=== PATIENT | female | born 1945 | race Caucasian/White ===

== ENCOUNTER 2018-05-07 11:45 | Day surgery (SDC) | payer OTHER ==
[2018-05-07] MEDS: CYCLOPENTOLATE 1% OPTH 2 ML ONE ×3 (11:15→11:25)
[2018-05-07] MEDS: PHENYLEPHRINE 10% OPTH 5ML ONE ×3 (11:15→11:25)
[2018-05-07] MEDS ORDERED: BUPIVACAINE 0.25% PF 10 ML VIAL ONE (12:11)
[2018-05-07] MEDS ORDERED: NA CHLORIDE 0.9% 500 ML ONE (12:11)
[2018-05-07] MEDS ORDERED: TETRACAINE HCL 0.5% 2ML OPTH ONE (12:11)
[2018-05-07] MEDS ORDERED: LIDOCAINE 2% MPF 5 ML VIAL ONE ×2 (12:11→13:01)
[2018-05-07] MEDS: BALANCED SALT IRRIG PLAIN 500 ML BTL IRR ONE ×2 (12:31→13:13)
[2018-05-07] MEDS ORDERED: NS 0.9% VIAL 10 ML ONE (12:31)
[2018-05-07] MEDS: DUOVISC 1 KIT OPTH ONE ×2 (12:32→13:13)
[2018-05-07] MEDS: MOXIFLOXACIN HCL 10 DROPS/ML **OR USE OPTH ONE ×2 (12:32→13:13)
[2018-05-07] MEDS: EPINEPHRINE/PF 1 MG/ML AMP ONE ×2 (12:32→13:13)
[2018-05-07] MEDS ORDERED: PROPOFOL 200 MG/20 ML VIAL IV ONE (13:01)
--- NOTE | 2018-05-07 13:52 | P.BOP ---
Preoperative diagnosis: Nuclear sclerotic cataract OD Postoperative diagnosis: Same Primary procedure: Phacoemulsification with IOL OD Estimated blood loss: None Anesthesia: Local (Subtenon's infusion with anesthesia for cataract surgery) Complications: None Implants: ZCB00 +25.0 Transferred to: Other (Day surgery) Condition: Good
--- NOTE | 2018-05-08 00:43 | OP ---
Date of Procedure: 05/07/2018 Surgeon: Dawn Jimenes MD Anesthesiologist: 1. Chris Cortes CRNA. 2. Lawrence Bryant Md. Preoperative Diagnosis: Nuclear sclerotic cataract, right eye. Operation Performed: Phacoemulsification with intraocular lens implant, right eye. Anesthesia: Per cataract surgery. Complications: Description Of Procedure: In day surgery, the patient was prepped with Betadine and draped. A conju nctival incision was made in the inferior nasal quadrant with Carlos scissors. A sub-Tenon block c onsisting of a 1:1 mixture of 2% Xylocaine and 0.25% bupivacaine was placed through the conjunctival incision with a blunt cannula. A Honan balloon was placed over the eye and the patient was transferr ed to the operating room. In the operating room the patient was prepped and draped in the usual sterile fashion for ophthalmic surgery. A lid speculum was placed in the right eye. Two paracentesis sites were made superiorly an d inferiorly in the limbal cornea. Viscoat was placed in the anterior chamber and a crescent blade w as used to make a corneal groove and tunnel, and a keratome was used to enter the anterior chamber. Provisc was placed in the anterior chamber and a 360 degree capsulotomy was performed with a cystitom e. The lens was hydrodissected with BSS and rotated freely. The lens was removed with a stop and ch op technique. 23.94 phaco CDE was used to remove the lens. Residual cortex was removed with the irr igation and aspiration. Provisc was placed in the capsular bag. A ZCB00 + 25.0 lens was placed in t he capsular bag without complications. Irrigation and aspiration was used to remove residual viscoel astic. The paracentesis sites were hydrated with BSS. The wound and paracentesis sites were inspect ed and found to be watertight. Vigamox 0.07 cc was placed intracamerally at the end of the procedure . The eye was irrigated with balanced salt solution. The eye was patched with a soft cotton patch a nd Rubio metal shield. The patient was returned to day surgery in good condition. Comments: Discharge Instructions: Ms. Mobley is discharged to home in good condition and is to follow up with Dr Roman Jimenes in the morning. ZAHEER/ROSIE Voice ID: [id number] Report ID: [id number]
== END 2018-05-07 14:14 | disposition home or self-care (01) ==
LOC: OR 11:45
PROVIDERS: ATTEND Ophthalmology Retina Specialist
PROC: 08RJ3JZ Replacement of Right Lens with Synthetic Substitute, Percutaneous Approach (ICD-10-PCS; principal; 2018-05-07 11:30)
DX: H25.11 Age-related nuclear cataract, right eye (principal); E11.9 Type 2 diabetes mellitus without complications; I10 Essential (primary) hypertension; J44.9 Chronic obstructive pulmonary disease, unspecified; E07.9 Disorder of thyroid, unspecified; F03.90 Unspecified dementia, unspecified severity, without behavioral disturbance, psychotic disturbance, mood disturbance, and anxiety; Z83.518 Family history of other specified eye disorder; Z80.9 Family history of malignant neoplasm, unspecified; Z83.3 Family history of diabetes mellitus; Z82.61 Family history of arthritis
CPT/HCPCS: 66984; 82962; J0171

== ENCOUNTER 2018-07-23 08:03 | Day surgery (SDC) | payer MEDICARE ==
[2018-07-23] MEDS ORDERED: MOXIFLOXACIN HCL 10 DROPS/ML **OR USE OPTH ONE (08:19)
[2018-07-23] MEDS ORDERED: BALANCED SALT IRRIG PLAIN 500 ML BTL IRR ONE (08:19)
[2018-07-23] MEDS ORDERED: DUOVISC 1 KIT OPTH ONE (08:19)
[2018-07-23] MEDS ORDERED: NS 0.9% VIAL 10 ML ONE (08:19)
[2018-07-23] MEDS ORDERED: EPINEPHRINE/PF 1 MG/ML AMP ONE (08:19)
[2018-07-23] MEDS ORDERED: LIDOCAINE 2% MPF 5 ML VIAL ONE ×2 (08:31→09:36)
[2018-07-23] MEDS ORDERED: BUPIVACAINE 0.25% PF 10 ML VIAL ONE (08:31)
[2018-07-23] MEDS ORDERED: TETRACAINE HCL 0.5% 2ML OPTH ONE (08:31)
[2018-07-23] MEDS ORDERED: NA CHLORIDE 0.9% 500 ML ONE (08:32)
[2018-07-23] MEDS: PHENYLEPHRINE 10% OPTH 5ML ONE ×3 (08:45→08:55)
[2018-07-23] MEDS: CYCLOPENTOLATE 1% OPTH 2 ML ONE ×3 (08:45→08:55)
[2018-07-23] MEDS ORDERED: PROPOFOL 200 MG/20 ML VIAL IV ONE (09:36)
--- NOTE | 2018-07-23 10:42 | P.BOP ---
Preoperative diagnosis: Nuclear sclerotic cataract OS Postoperative diagnosis: Same Primary procedure: Phacomulsification with IOL OS Estimated blood loss: None Anesthesia: Local (Subtenon's infusion with anesthesia for cataract surgery) Complications: None Implants: ZCB00 +25.0 Transferred to: Other (Day surgery) Condition: Good
--- NOTE | 2018-07-23 21:58 | OP ---
Date of Procedure: 07/23/2018 Surgeon: Dawn Jimenes MD Preoperative Diagnosis: Nuclear sclerotic cataract, left eye. Operation Performed: Phacoemulsification with intraocular lens implant, left eye. Anesthesia: Kira Obrien CRNA and Ernesto Morillo M.D. Anesthesia: Per cataract surgery. Complications: None. Description Of Procedure: In day surgery, the patient was prepped with Betadine and draped. A conju nctival incision was made in the inferior nasal quadrant with Carlos scissors. A sub-Tenon block c onsisting of a 1:1 mixture of 2% Xylocaine and 0.25% bupivacaine was placed through the conjunctival incision with a blunt cannula. A Honan balloon was placed over the eye and the patient was transferr ed to the operating room. In the operating room the patient was prepped and draped in the usual sterile fashion for ophthalmic surgery. A lid speculum was placed in the left eye. Two paracentesis sites were made superiorly and inferiorly in the limbal cornea. Viscoat was placed in the anterior chamber and a crescent blade wa s used to make a corneal groove and tunnel, and a keratome was used to enter the anterior chamber. P rovisc was placed in the anterior chamber and a 360 degree capsulotomy was performed with a cystitome . The lens was hydrodissected with BSS and rotated freely. The lens was removed with a stop and cho p technique. 24.46 phaco CDE was used to remove the lens. Residual cortex was removed with the irri gation and aspiration. Provisc was placed in the capsular bag. A ZCB00 +25.0 lens was placed in the capsular bag without complications. Irrigation and aspiration were used to remove residual viscoela stic. The paracentesis sites were hydrated with BSS. The wound and paracentesis sites were inspecte d and found to be watertight. Vigamox 0.07 cc was placed intracamerally at the end of the procedure. The eye was irrigated with balanced salt solution. The eye was patched with a soft cotton patch an d Rubio metal shield. The patient was returned to day surgery in good condition. Comments: Discharge Instructions: Ms. Mobley is discharged to home in good condition and is to follow up with Dr Roman Jimenes in the morning. ZAHEER/ROSIE Voice ID: [id number] Report ID: [id number]
== END 2018-07-23 11:22 | disposition home or self-care (01) ==
LOC: OR 08:03
PROVIDERS: ATTEND Ophthalmology Retina Specialist
PROC: 08RK3JZ Replacement of Left Lens with Synthetic Substitute, Percutaneous Approach (ICD-10-PCS; principal; 2018-07-23 09:30)
DX: H25.12 Age-related nuclear cataract, left eye (principal); E11.9 Type 2 diabetes mellitus without complications; I10 Essential (primary) hypertension; J44.9 Chronic obstructive pulmonary disease, unspecified; E07.9 Disorder of thyroid, unspecified; F32.9 Major depressive disorder, single episode, unspecified; F03.90 Unspecified dementia, unspecified severity, without behavioral disturbance, psychotic disturbance, mood disturbance, and anxiety; Z87.891 Personal history of nicotine dependence; Z83.518 Family history of other specified eye disorder; Z83.3 Family history of diabetes mellitus; Z80.9 Family history of malignant neoplasm, unspecified; Z82.3 Family history of stroke; Z82.61 Family history of arthritis
CPT/HCPCS: 66984; 82962; J0171; J2704

== ENCOUNTER 2019-03-05 11:47 | Observation (INO) | payer MEDICARE ==
--- NOTE | 2019-03-05 14:10 | ER ---
Nurse's Notes [facility] Name: Deepika Mobley Age: 73 yrs Sex: Female : 1945 Arrival Date: 03/05/2019 Time: 11:51 Bed 7 Private MD: None, None Diagnosis: Altered mental status, unspecified;Type 1 diabetes mellitus;Dementia in other diseases classified elsewhere;Repeated falls;Urinary tract infection, site not specified Presentation: 03/05 11:58 Presenting complaint: Child states: she been not normal lately and she has dementia and hj her legs gave way and fell in the bathroom and hit her head; denies LOC; pt is A\T\O x 2, and reports not been feeling good and not been eating well;. Transition of care: patient was not received from another setting of care. Onset of symptoms was March 05, 2019. Risk Assessment: Do you want to hurt yourself or someone else? Patient reports no desire to harm self or others. Initial Sepsis Screen: Does the patient meet any 2 criteria? No. Patient's initial sepsis screen is negative. Does the patient have a suspected source of infection? No. Patient's initial sepsis screen is negative. Care prior to arrival: None. 11:58 Method Of Arrival: Ambulatory 11:58 Acuity: LEWIS 3 12:03 Mechanism of Injury: Fall from standing position. Trauma event details: Injury occurred hj in the [facility], Injury occurred: at home. Injury occurred: March 05, 2019 Injury occurred at: 10:30. Historical: - Allergies: 12:02 No Known Allergies; hj - PMHx: 12:02 Diabetes - IDDM; Hypertension; Dementia; hj - PSHx: 12:02 Hysterectomy; Cholecystectomy; hj - Immunization history:: Adult Immunizations not up to date. - Social history:: Smoking status: Patient/guardian denies using tobacco. - Family history:: not pertinent. - Ebola Screening: : Patient negative for fever greater than or equal to 101.5 degrees Fahrenheit, and additional compatible Ebola Virus Disease symptoms Patient denies exposure to infectious person Patient denies travel to an Ebola-affected area in the 21 days before illness onset No symptoms or risks identified at this time. Screenin:09 Abuse screen: Denies threats or abuse. Denies injuries from another. Nutritional sg screening: No deficits noted. Tuberculosis screening: No symptoms or risk factors identified. Never had TB. The patient has not been NPO before screening. The patient is alert, able to follow commands. The patient does not exhibit slurred or garbled speech The patient is not exhibiting difficulty speaking. The patient does not exhibit difficulty understanding words. The patient is able to swallow own secretions with no drooling or need for suction. Patient tolerated one teaspoon of water. No drooling, immediate coughing, gurgling, or clearing of the throat was noted. The patient tolerated 90mL of water. No drooling, immediate coughing, gurgling, or clearing of the throat was noted. The patient passed the bedside swallow screening. Oral medications may be given as ordered. Contact Physician for further diet orders. Provider notified of bedside swallow screening results: Jose Luis Mirza MD. Fall Risk None identified. Assessment: 11:48 General: Appears in no apparent distress. well groomed, well developed, well nourished, sg Behavior is calm, cooperative, appropriate for age. Pain: Complains of pain in head. Neuro: Level of Consciousness is awake, alert, obeys commands, Oriented to person, place, time, Powerhouse Attendant are equal bilaterally Moves all extremities. Speech is normal, Facial symmetry appears normal, Reports weakness in right leg and left leg. Cardiovascular: Capillary refill is brisk in bilateral fingers Patient's skin is warm and dry. Chest pain is denied. Respiratory: Airway is patent Respiratory effort is even, unlabored, Respiratory pattern is regular, symmetrical. GI: Abdomen is round non-distended. : No signs and/or symptoms were reported regarding the genitourinary system. EENT: No signs and/or symptoms were reported regarding the EENT system. Derm: Skin is pink, warm \T\ dry. Musculoskeletal: Circulation, motion, and sensation intact. Range of motion: intact in all extremities. Vital Signs: 12:03 BP 181 / 82; Pulse 90; Resp 16; Temp 97.4(TE); Pulse Ox 98% on R/A; Weight 61.23 kg; hj Height 5 ft. 0 in. (152.40 cm); 13:30 BP 172 / 70; Pulse 87; Resp 17; Pulse Ox 99% on R/A; sg 14:30 BP 162 / 77; Pulse 80; Resp 16; Pulse Ox 97% on R/A; sg 15:10 BP 160 / 70; Pulse 82; Resp 16; Pulse Ox 99% on R/A; sg 12:03 Body Mass Index 26.36 (61.23 kg, 152.40 cm) ED Course: 11:45 Patient has correct armband on for positive identification. Bed in low position. Call sg light in reach. Side rails up X2. Pulse ox on. NIBP on. Warm blanket given. Head of bed elevated. 11:48 Arm band placed on. sg 11:51 Patient arrived in ED. dp 11:52 None, None is Private Physician. dp 12:02 Triage completed. hj 13:16 Jose Luis Mirza MD is Attending Physician. scott 13:26 Andrew Rivas, RN is Primary Nurse. sg 14:07 Daren Flannery MD is Hospitalizing Provider. scott 14:18 Initial lab(s) drawn, by me, sent to lab. Inserted saline lock: 22 gauge in right ms antecubital area, using aseptic technique. Blood collected. 14:34 X-ray completed. Portable x-ray completed in exam room. Patient tolerated procedure sw well. 14:34 CT Traumagram (Head C Spine CAP wo con) In Process Unspecified. EDMS 14:36 XRAY Chest (1 view) In Process Unspecified. EDMS 15:10 No provider procedures requiring assistance completed. Patient admitted, IV remains in sg place. intact, No redness/swelling at site. Administered Medications: 14:55 Drug: NS 0.9% 500 ml Route: IV; Rate: bolus; Site: right antecubital; sg 14:55 Drug: NS 0.9% 1000 ml Route: IV; Rate: 125 ml/hr; Site: right antecubital; sg Outcome: 14:09 Decision to Hospitalize by Provider. scott 16:31 Patient left the ED. sg 17:03 Patient left the ED. bd Signatures: Dispatcher [employer] EDMS Amanda Gordon Steven, RN RN Jose Luis Franklin MD MD cha Solis, Maria ms Juliet Dogulas Henry, RN RN Dorian Lopez dp Corrections: (The following items were deleted from the chart) 12:05 12:03 Pulse 90bpm; Resp 16bpm; Pulse Ox 98% RA; Temp 97.4F Temporal; 61.23 kg; Height 5 hj ft. 0 in.; BMI: 26.3; hj 12:33 11:58 Presenting complaint: Child states: she been not normal lately and she has hj dementia and her legs gave way and fell and hit her head and denies LOC; pt is A\T\O x 2, and reports not been feeling good and not been eating well; hj
--- NOTE | 2019-03-05 14:10 | EDPHYS ---
Physician Documentation [facility] Name: Deepika Mobley Age: 73 yrs Sex: Female : 1945 Arrival Date: 03/05/2019 Time: 11:51 Bed 7 Private MD: None, None ED Physician Jose Luis Mirza HPI: 03/05 14:02 This 73 yrs old Female presents to ER via Ambulatory with complaints of Fall scott Injury, Altered Mental Status. 14:02 Details of fall: The patient fell from an upright position, while walking. Onset: The scott symptoms/episode began/occurred today, yesterday. Associated injuries: The patient sustained no obvious injury. The patient has experienced similar episodes in the past, multiple times. Historical: - Allergies: 12:02 No Known Allergies; hj - PMHx: 12:02 Diabetes - IDDM; Hypertension; Dementia; hj - PSHx: 12:02 Hysterectomy; Cholecystectomy; hj - Immunization history:: Adult Immunizations not up to date. - Social history:: Smoking status: Patient/guardian denies using tobacco. - Family history:: not pertinent. - Ebola Screening: : Patient negative for fever greater than or equal to 101.5 degrees Fahrenheit, and additional compatible Ebola Virus Disease symptoms Patient denies exposure to infectious person Patient denies travel to an Ebola-affected area in the 21 days before illness onset No symptoms or risks identified at this time. ROS: 14:02 Constitutional: Negative for fever, chills, and weight loss, Eyes: Negative for injury, scott pain, redness, and discharge, ENT: Negative for injury, pain, and discharge, Neck: Negative for injury, pain, and swelling, Cardiovascular: Negative for chest pain, palpitations, and edema, Respiratory: Negative for shortness of breath, cough, wheezing, and pleuritic chest pain, Abdomen/GI: Negative for abdominal pain, nausea, vomiting, diarrhea, and constipation, Back: Negative for injury and pain, : Negative for injury, bleeding, discharge, and swelling, MS/Extremity: Negative for injury and deformity, Skin: Negative for injury, rash, and discoloration, Psych: Negative for depression, anxiety, suicide ideation, homicidal ideation, and hallucinations, Allergy/Immunology: Negative for hives, rash, and allergies, Endocrine: Negative for neck swelling, polydipsia, polyuria, polyphagia, and marked weight changes, Hematologic/Lymphatic: Negative for swollen nodes, abnormal bleeding, and unusual bruising. 14:02 Neuro: Positive for altered mental status, dizziness, weakness. Exam: 14:02 Constitutional: This is a well developed, well nourished patient who is awake, alert, scott and in no acute distress. Head/Face: Normocephalic, atraumatic. Eyes: Pupils equal round and reactive to light, extra-ocular motions intact. Lids and lashes normal. Conjunctiva and sclera are non-icteric and not injected. Cornea within normal limits. Periorbital areas with no swelling, redness, or edema. ENT: Nares patent. No nasal discharge, no septal abnormalities noted. Tympanic membranes are normal and external auditory canals are clear. Oropharynx with no redness, swelling, or masses, exudates, or evidence of obstruction, uvula midline. Mucous membranes moist. Neck: Trachea midline, no thyromegaly or masses palpated, and no cervical lymphadenopathy. Supple, full range of motion without nuchal rigidity, or vertebral point tenderness. No Meningismus. Chest/axilla: Normal chest wall appearance and motion. Nontender with no deformity. No lesions are appreciated. Cardiovascular: Regular rate and rhythm with a normal S1 and S2. No gallops, murmurs, or rubs. Normal PMI, no JVD. No pulse deficits. Respiratory: Lungs have equal breath sounds bilaterally, clear to auscultation and percussion. No rales, rhonchi or wheezes noted. No increased work of breathing, no retractions or nasal flaring. Abdomen/GI: Soft, non-tender, with normal bowel sounds. No distension or tympany. No guarding or rebound. No evidence of tenderness throughout. Back: No spinal tenderness. No costovertebral tenderness. Full range of motion. Female : Normal external genitalia. MS/ Extremity: Pulses equal, no cyanosis. Neurovascular intact. Full, normal range of motion. Neuro: Awake and alert, GCS 15, oriented to person, place, time, and situation. Cranial nerves II-XII grossly intact. Motor strength 5/5 in all extremities. Sensory grossly intact. Cerebellar exam normal. Normal gait. Psych: Awake, alert, with orientation to person, place and time. Behavior, mood, and affect are within normal limits. 14:02 Skin: Appearance: Color: pale, Temperature: normal temperature, Moisture: normal moisture, petechiae, not noted, abscess, not appreciated, no rash present. Vital Signs: 12:03 BP 181 / 82; Pulse 90; Resp 16; Temp 97.4(TE); Pulse Ox 98% on R/A; Weight 61.23 kg; hj Height 5 ft. 0 in. (152.40 cm); 13:30 BP 172 / 70; Pulse 87; Resp 17; Pulse Ox 99% on R/A; sg 14:30 BP 162 / 77; Pulse 80; Resp 16; Pulse Ox 97% on R/A; sg 15:10 BP 160 / 70; Pulse 82; Resp 16; Pulse Ox 99% on R/A; sg 12:03 Body Mass Index 26.36 (61.23 kg, 152.40 cm) hj MDM: 13:16 Patient medically screened. [facility] 14:02 Data reviewed: vital signs, nurses notes, lab test result(s), EKG, radiologic studies, [facility] CT scan, plain films. 03/05 14:02 Order name: Basic Metabolic Panel [facility] 03/05 14:02 Order name: CBC with Diff [facility] 03/05 14:02 Order name: LFT's [facility] 03/05 14:02 Order name: Magnesium [facility] 03/05 14:02 Order name: NT PRO-BNP; Complete Time: 15:17 [facility] 03/05 14:02 Order name: PT-INR; Complete Time: 15:17 [facility] 03/05 14:02 Order name: Troponin (emerg Dept Use Only); Complete Time: 15:17 [facility] 03/05 14:02 Order name: Lipase; Complete Time: 15:17 [facility] 03/05 14:02 Order name: Urine Culture [facility] 03/05 14:02 Order name: TSH; Complete Time: 15:17 [facility] 03/05 14:03 Order name: Basic Metabolic Panel; Complete Time: 15:17 [facility] 03/05 14:03 Order name: CBC with Automated Diff; Complete Time: 15:17 [facility] 03/05 14:03 Order name: Liver (Hepatic) Function; Complete Time: 15:17 [facility] 03/05 14:03 Order name: Magnesium; Complete Time: 15:17 [facility] 03/05 14:02 Order name: XRAY Chest (1 view); Complete Time: 15:17 [facility] 03/05 14:02 Order name: EKG; Complete Time: 14:04 [facility] 03/05 14:02 Order name: Cardiac monitoring; Complete Time: 14: [facility] 03/05 14:02 Order name: EKG - Nurse/Tech; Complete Time: 14:07 [facility] 03/05 14:02 Order name: IV Saline Lock; Complete Time: 14:18 [facility] 03/05 14:02 Order name: Labs collected and sent; Complete Time: 14:18 [facility] 03/05 14:02 Order name: O2 Per Protocol; Complete Time: 14: [facility] 03/05 14:02 Order name: O2 Sat Monitoring; Complete Time: 14: [facility] 03/05 14:02 Order name: CT Traumagram (Head C Spine CAP wo con); Complete Time: 15: [facility] 03/05 17:03 Order name: Urine Dipstick--Ancillary (enter results) bd Administered Medications: 14:55 Drug: NS 0.9% 500 ml Route: IV; Rate: bolus; Site: right antecubital; sg 14:55 Drug: NS 0.9% 1000 ml Route: IV; Rate: 125 ml/hr; Site: right antecubital; sg Disposition: 03/05/19 14:09 Hospitalization ordered by Daren Flannery for Inpatient Admission. Preliminary diagnosis are Altered mental status, unspecified, Type 1 diabetes mellitus, Dementia in other diseases classified elsewhere, Repeated falls, Urinary tract infection, site not specified. - Bed requested for Telemetry/MedSurg (Inpatient). - Status is Inpatient Admission. bd - Condition is Stable. - Problem is new. - Symptoms have improved. UTI on Admission? Yes Signatures: Dispatcher [employer] EDMS Amanda Gordon Steven, RN RN sg Jose Luis Mirza MD MD cha Joaquin, Henry RN RN Corrections: (The following items were deleted from the chart) 15:10 14:09 Hospitalization Ordered by Daren Flannery MD for Inpatient Admission. Preliminary bd diagnosis is Altered mental status, unspecified; Type 1 diabetes mellitus; Dementia in other diseases classified elsewhere; Repeated falls. Bed requested for Telemetry/MedSurg (Inpatient). Status is Inpatient Admission. Condition is Stable. Problem is new. Symptoms have improved. UTI on Admission? No. [facility] 15:16 15:10 03/05/2019 14:09 Hospitalization Ordered by Daren Flannery MD for Inpatient sg Admission. Preliminary diagnosis is Altered mental status, unspecified; Type 1 diabetes mellitus; Dementia in other diseases classified elsewhere; Repeated falls. Bed requested for Telemetry/MedSurg (Inpatient). Status is Inpatient Admission. Condition is Stable. Problem is new. Symptoms have improved. UTI on Admission? No. bd 16:31 15:16 03/05/2019 14:09 Hospitalization Ordered by Daren Flannery MD for Inpatient sg Admission. Preliminary diagnosis is Altered mental status, unspecified; Type 1 diabetes mellitus; Dementia in other diseases classified elsewhere; Repeated falls. Bed requested for Telemetry/MedSurg (Inpatient). Status is Inpatient Admission. Condition is Stable. Problem is new. Symptoms have improved. UTI on Admission? No. sg 16:56 16:31 03/05/2019 14:09 Hospitalization Ordered by Daren Flannery MD for Inpatient scott Admission. Preliminary diagnosis is Altered mental status, unspecified; Type 1 diabetes mellitus; Dementia in other diseases classified elsewhere; Repeated falls. Bed requested for Telemetry/MedSurg (Inpatient). Status is Inpatient Admission. Condition is Stable. Problem is new. Symptoms have improved. UTI on Admission? No. sg 17:03 16:56 03/05/2019 14:09 Hospitalization Ordered by Daren Flannery MD for Inpatient bd Admission. Preliminary diagnosis is Altered mental status, unspecified; Type 1 diabetes mellitus; Dementia in other diseases classified elsewhere; Repeated falls; Urinary tract infection, site not specified. Bed requested for Telemetry/MedSurg (Inpatient). Status is Inpatient Admission. Condition is Stable. Problem is new. Symptoms have improved. UTI on Admission? Yes. scott
[2019-03-05 14:32] LABS: Absolute Lymphocytes (CBC) 1.6 K/uL (0.7-4.9); Basophils % 0.6 % (0-1.3); Eosinophils % 1.6 % (0-4.4); Hematocrit 41.6 % (36.0-45.0); Monocytes % 7.3 % (3.3-12.3); RBC Red Blood Cell Count 4.55 M/uL (3.86-4.86)
[2019-03-05 14:37] LABS: Protime INR 0.98
--- NOTE | 2019-03-05 14:58 | RAD REPORT ---
EXAM DESCRIPTION: CT - Head C Spine Cap Wo Con - 03/05/2019 2:32 pm CLINICAL HISTORY: Fall, trauma, head, neck, chest and abdomen pain, prior hysterectomy and cholecyst ectomy COMPARISON: None. TECHNIQUE: Axial [address] head images were obtained. Axial [address] cervical spine images were obtain ed with sagittal and coronal reconstruction images reviewed. Axial 5 mm images of the chest, abdomen and pelvis were obtained. All CT scans are performed using dose optimization technique as appropriate and may include automated exposure control or mA/KV adjustment according to patient size. FINDINGS: No intracranial hemorrhage, mass or edema. No midline shift or abnormal fluid collection. Mastoid air cells and paranasal sinuses are clear. No skull fracture. Prominent atrophy and chronic ischemic changes are present. Ventricles are in proportion. Dense arterial calcifications are present . A 16 millimeter rounded soft tissue mass in the right frontal scalp soft tissues noted. This is unc ertain the etiology. Acute or long-term significance doubtful. Cervical bodies are normal in height. No fracture or acute bone finding.Significant C5-6, C6-7 and C7 -T1 disc space narrowing and endplate spurring changes present.No prevertebral soft tissue thickening or paraspinal mass.Central canal detail is inherently limited on CT imaging.Lateral masses of C1 are normally positioned relative to the occipital condyles. There is a minimal type 1 atlantoaxial rotar y displacement. This is likely from muscle spasm. No fracture component. Dens is normally positioned to the midline anterior arch C1. 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 CT chest shows no pneumothorax, pulmonary contusion or pleural fluid collection. No mediastinal hem atoma and the aorta and pulmonary arteries are unremarkable. No chest will mass or abnormal axillary finding. No displaced rib fracture or other significant bony finding. CT abdomen and pelvis show no injury to solid abdominal viscera. Gallbladder is absent. No biliary tr ee dilatation. No bowel injury or significant finding. No free air, free fluid or abnormal stranding. No hernia, mass or bulky lymphadenopathy. No urinary bladder abnormality. Advanced right hip joint degenerative changes are present. More moderate left hip joint degenerative change present. There is severe degenerative changes involving the L2-3, L3-4 and L4-5 disc levels. T here is L4 anterior subluxation. No pathologic bone process. No traumatic bony injury evident. IMPRESSION: Atrophy and chronic ischemic changes are present with no acute intracranial finding. Advanced cervical spine degenerative change. No fracture identified. Mild type 1 atlantoaxial rotary displacement likely from muscle spasm. No significant CT Chest finding. No acute CT abdomen or pelvis finding. Patient has advanced degenerative change in the mid and lower lumbar spine.
[2019-03-05] MEDS ORDERED: NA CHLORIDE 0.9% 1,000 ML ONE (14:59)
[2019-03-05 15:00] LABS: ALT/SGPT 23 U/L (12-78); AST/SGOT 14 U/L (15-37); Albumin 3.8 g/dL (3.4-5.0); Alkaline Phosphatase 78 U/L (45-117); BUN Blood Urea Nitrogen 18 mg/dL (7-18); Bicarbonate 23 mmol/L (21-32); Bilirubin Direct 0.2 mg/dL (0-0.2); Bilirubin Total 0.4 mg/dL (0.2-1.0); Glucose Level 125 mg/dL (74-106); Lipase 66 U/L (73-393); Magnesium 1.9 mg/dL (1.8-2.4); NT PRO-BNP 536 pg/mL (<450); Potassium 3.9 mmol/L (3.5-5.1); Protein, Total 7.5 g/dL (6.4-8.2); Sodium Level 143 mmol/L (136-145); Troponin (Emerg Dept Use Only) < 0.02 ng/mL (0.0-0.045)
--- NOTE | 2019-03-05 15:00 | RAD REPORT ---
EXAM DESCRIPTION: RAD - Chest Single View - 03/05/2019 2:36 pm CLINICAL HISTORY: Cough COMPARISON: None. TECHNIQUE: AP portable chest image was obtained 1433 hours . FINDINGS: Lungs are clear. Heart and vasculature are normal. No measurable pleural effusion and no p neumothorax. No acute bony abnormality seen. No acute aortic findings suspected. IMPRESSION: No acute cardiopulmonary process.
[2019-03-05] MEDS: INSULIN -REGULAR HUMAN 50 UNIT/0.5 ML ML SQ SCH ×2 (16:52→21:00)
[2019-03-05 17:05] LABS: Urine Blood NEGATIVE (NEG); Urine Glucose NEGATIVE (NEG); Urine Protein 1+ (NEG); Urine Specific Gravity >1.030 (1.005-1.030); Urine pH 5.5 (5.0-7.0)
[2019-03-05 17:10] VITALS: BMI 25.2
[2019-03-05] MEDS: NA CHLORIDE 0.9% 1,000 ML IV SCH (17:50)
[2019-03-05 19:06] LABS: Urine Appearance CLEAR; Urine Blood NEGATIVE (NEG); Urine Color YELLOW; Urine Glucose NEGATIVE (NEG); Urine Protein NEGATIVE (NEG); Urine Urobilinogen 0.2 mg/dL (0.2-1.0)
[2019-03-05 19:08] LABS: Urine Microscopic Reflex ORDER UMIC
[2019-03-05 19:49] LABS: Urine Bacteria 20-50 /HPF (<20); Urine Culture Reflex Order REFLEXED; Urine RBC <5 /HPF (NONE SEEN)
[2019-03-05 19:54] LABS: Urine Bilirubin 1+ (NEG)
[2019-03-05] MEDS: CEFTRIAXONE/SWI 1gm 1 GM/10 ML SYR IVP SCH (20:32)
[2019-03-05] MEDS ORDERED: PNEUMOCOCCAL VACCINE 0.5 ML IMVAC ONE (21:00)
--- NOTE | 2019-03-05 21:19 | P.HP ---
Patient History Date of Service: 03/05/19 Reason for admission: AMS History of Present Illness: This is a 73 yr old female with a hx of dementia, IDDM, HTN admitted for altered mental status. Per daughter at bedside, pt has had no strenght, some slurring of speech and worsening hallucinations. This has been a progression but has been worse for the past few days. Patient also states that she has had worsening memory along wiht hallucinations. She denies any cp, sob, headache, vision changes, focal weakness, syncope/presyncope, or GI complaints. She did state that she has had some falls recently. Daughter called EMS and patient was brought to the ED. Patient lives with her daughter and granddaughter. In the ED, her BP was 181/82, HR 90, RR 16, 98% on RA and BMI of 26. Her CBC was WNL, her CMP was pending as was her UA and CXR. At the time of my exam, patient's mentation was improved though was still complaining of generalized weakness. On re-review, she was also noted to have a UTI. Allergies No Known Allergies Allergy (Verified 07/20/18 09:15) Home medications list reviewed: Yes Home Medications: Memantine HCl [Memantine HCl ER] 21 mg PO DAILY 05/02/18 Metformin HCl [Glucophage] 1,000 mg PO BID 05/02/18 Pravastatin Sodium 40 mg PO BEDTIME 05/02/18 Alendronate Sodium 70 mg PO EVERY 7TH DAY 03/05/19 Levothyroxine [Synthroid] 50 mcg PO [id number] 03/05/19 Multivit-Min/Folic Acid/Vit K1 [Multi For Her 50 Plus Softgel] 1 each PO DAILY 03/05/19 Quetiapine Fumarate [Seroquel] 100 mg PO BEDTIME 03/05/19 buPROPion HCl [Bupropion HCl Sr] 150 mg PO BID 03/05/19 - Past Medical/Surgical History Has patient received pneumonia vaccine in the past: No Diabetic: No -: Dementia -: Hypertension -: Diabetes -: Hypothyroidism -: Cataract -: Cataract rafael sx - Social History Smoking Status: Former smoker Alcohol use: No CD- Drugs: No Caffeine use: Yes Place of Residence: Home Review of Systems 10-point ROS is otherwise unremarkable Physical Examination - Vital Signs Temperature: 98.2 F Blood Pressure: 160/80 Pulse: 79 Respirations: 18 Pulse Ox (%): 100 - Physical Exam General: Alert, In no apparent distress, Oriented x3, Other (Elderly) HEENT: Atraumatic, PERRLA, Mucous membr. moist/pink, EOMI, Sclerae nonicteric Neck: Supple, 2+ carotid pulse no bruit, No LAD, Without JVD or thyroid abnormality Respiratory: Clear to auscultation bilaterally, Normal air movement Cardiovascular: Regular rate/rhythm, Normal S1 S2 Gastrointestinal: Normal bowel sounds, No tenderness Musculoskeletal: No tenderness Integumentary: No rashes Neurological: Normal gait, Normal speech, Normal strength at 5/5 x4 extr, Normal tone, Normal affect Lymphatics: No axilla or inguinal lymphadenopathy - Studies Laboratory Data (last 24 hrs) 03/05/19 14:16: PT 11.6, INR 0.98 03/05/19 14:16: WBC 7.2, Hgb 13.2, Hct 41.6, Plt Count 136 L 03/05/19 14:16: Sodium 143, Potassium 3.9, BUN 18, Creatinine 1.25, Glucose 125 H, Magnesium 1.9, Total Bilirubin 0.4, AST 14 L, ALT 23, Alkaline Phosphatase 78 , Lipase 66 L Assessment and Plan - Problems (Diagnosis) (1) Encephalopathy Current Visit: Yes Status: Acute Plan: likely secondary to UTI vs progressive dementia - Monitor mentation - Fall precautions - Treat UTI with IV antibiotics (2) Dementia Current Visit: Yes Status: Chronic Plan: Will resume home medications - Discussed in detail with daughter regarding possibility of this being patient' s new baseline. Will get SW to help with discharge planning. - Resume home medications. - PT eval Qualifiers: Dementia type: unspecified type Dementia behavioral disturbance: without behavioral disturbance Qualified Code(s): F03.90 - Unspecified dementia without behavioral disturbance (3) UTI (urinary tract infection) Current Visit: Yes Status: Acute Plan: Iv rocephin. Urine cultures pending. Will adjust antibiotics accordingly. (4) IDDM (insulin dependent diabetes mellitus) Current Visit: No Status: Chronic Plan: Accu-checks, SSI. Will monitor and adjust as needed. (5) HTN (hypertension) Current Visit: No Status: Chronic Plan: Stable, resume home medications. Qualifiers: Hypertension type: essential hypertension Qualified Code(s): I10 - Essential (primary) hypertension - Plan Plan: PT eval, IV antibiotics. Monitor mentation. Will get SW to help with discharge planning. - Advance Directives Does patient have a Living Will: No Does patient have a Durable POA for Healthcare: No Time Spent Managing Pts Care (In Minutes): 55
[2019-03-06] MEDS: LEVOTHYROXINE SOD 0.05 MG TABLET PO SCH (05:12)
[2019-03-06] MEDS: NA CHLORIDE 0.9% 1,000 ML IV SCH ×2 (05:13→21:49)
[2019-03-06 06:15] LABS: Absolute Lymphocytes (CBC) 1.6 K/uL (0.7-4.9); Basophils % 0.7 % (0-1.3); Eosinophils % 1.4 % (0-4.4); Hematocrit 36.9 % (36.0-45.0); Lymphocytes % 27.6 % (15.3-44.8); MPV 10.3 fL (7.6-11.3); Monocytes % 8.9 % (3.3-12.3); RBC Red Blood Cell Count 4.07 M/uL (3.86-4.86)
[2019-03-06 06:27] LABS: Albumin 3.3 g/dL (3.4-5.0); Bilirubin Total 0.4 mg/dL (0.2-1.0); Phosphorus 2.3 mg/dL (2.5-4.9); Potassium 4.2 mmol/L (3.5-5.1); Protein, Total 6.2 g/dL (6.4-8.2)
[2019-03-06] MEDS: INSULIN -REGULAR HUMAN 50 UNIT/0.5 ML ML SQ SCH ×4 (07:30→21:00)
[2019-03-06] MEDS: MULTIVITAMIN TAB PO SCH (09:29)
[2019-03-06] MEDS: MEMANTINE HCL 10 MG TABLET PO SCH ×2 (09:29→21:46)
[2019-03-06] MEDS: POTASS/SODIUM PHOSPHATE 1 PKT POWD.PACK PO SCH ×3 (09:29→11:00)
[2019-03-06] MEDS: CEFTRIAXONE/SWI 1gm 1 GM/10 ML SYR IVP SCH ×2 (09:30→21:46)
[2019-03-06] MEDS: BUPROPRION HCL S.R. 150MG TAB PO SCH ×2 (09:30→21:46)
--- NOTE | 2019-03-06 12:31 | P.PN ---
Subjective Date of Service: 03/06/19 Chief Complaint: AMS Subjective: Improving Patient seen and examined at bedside. No family at bedside. Chart reviewed and case discussed with nursing staff. No concerns or complaints this morning Acute events noted overnight Review of Systems 10-point ROS is otherwise unremarkable Physical Examination - Vital Signs Temperature: 97.2 F Blood Pressure: 132/57 Pulse: 77 Respirations: 18 Pulse Ox (%): 98 - Physical Exam General: Alert, In no apparent distress, Oriented x1 HEENT: Atraumatic, PERRLA, EOMI Neck: Supple, JVD not distended Respiratory: Clear to auscultation bilaterally, Normal air movement Cardiovascular: Regular rate/rhythm, Normal S1 S2 Gastrointestinal: Normal bowel sounds, No tenderness Musculoskeletal: No tenderness Integumentary: No rashes Neurological: Normal speech, Normal tone, Normal affect - Studies Laboratory Data (last 24 hrs) 03/05/19 14:16: PT 11.6, INR 0.98 03/05/19 14:16: WBC 7.2, Hgb 13.2, Hct 41.6, Plt Count 136 L 03/05/19 14:16: Sodium 143, Potassium 3.9, BUN 18, Creatinine 1.25, Glucose 125 H, Magnesium 1.9, Total Bilirubin 0.4, AST 14 L, ALT 23, Alkaline Phosphatase 78 , Lipase 66 L Assessment And Plan - Current Problems (Diagnosis) (1) Encephalopathy Current Visit: Yes Status: Acute Plan: Improving; likely secondary to UTI vs progressive dementia - Monitor mentation - Fall precautions (2) Dementia Current Visit: Yes Status: Chronic Plan: Will resume home medications - Discussed in detail with daughter regarding possibility of this being patient' s new baseline. SW to help with discharge planning. - Resume home medications. - Physical therapy eval Qualifiers: Dementia type: unspecified type Dementia behavioral disturbance: without behavioral disturbance Qualified Code(s): F03.90 - Unspecified dementia without behavioral disturbance (3) UTI (urinary tract infection) Current Visit: Yes Status: Acute Plan: Iv rocephin. Urine cultures pending. Will adjust antibiotics accordingly. Qualifiers: Urinary tract infection type: acute cystitis Hematuria presence: without hematuria Qualified Code(s): N30.00 - Acute cystitis without hematuria (4) IDDM (insulin dependent diabetes mellitus) Current Visit: No Status: Chronic Plan: Accu-checks, SSI. Will monitor and adjust as needed. (5) HTN (hypertension) Current Visit: No Status: Chronic Plan: Stable, resume home medications. Qualifiers: Hypertension type: essential hypertension Qualified Code(s): I10 - Essential (primary) hypertension - Plan Plan: PT eval, IV antibiotics, pending cultures. Monitor mentation. SW to help with discharge planning.
--- NOTE | 2019-03-06 15:08 | EKG ---
Test Date: 2019-03-05 Test Time: 15:47:07 Non Destructive Testing Technician: LENORE MEASUREMENT RESULTS: Intervals: Rate: 84 ND: 128 QRSD: 68 QT: 378 QTc: 446 Rebuck: P: 54 ND: 128 QRS: 58 T: 71 INTERPRETIVE STATEMENTS: Normal sinus rhythm Normal ECG No previous ECG available for comparison Electronically Signed On 03-06-19 15:07:44 CDT by Cesar Stacy
[2019-03-06] MEDS: GLUCERNA SHAKE 237 ML CAN PO SCH (21:00)
[2019-03-06] MEDS ORDERED: QUETIAPINE 100MG TAB PO SCH (21:00)
[2019-03-06] MEDS ORDERED: ATORVASTATIN 10 MG TAB PO SCH (21:00)
[2019-03-06] MEDS: HYDRALAZINE HCL 20 MG/ML VIAL IV PRN (21:49)
[2019-03-07] MEDS: HYDRALAZINE HCL 20 MG/ML VIAL IV PRN ×2 (03:53→10:37)
[2019-03-07 05:57] LABS: Absolute Lymphocytes (CBC) 1.5 K/uL (0.7-4.9); Eosinophils % 1.9 % (0-4.4); Hematocrit 38.5 % (36.0-45.0); Lymphocytes % 33.6 % (15.3-44.8); MPV 10.4 fL (7.6-11.3); Monocytes % 10.9 % (3.3-12.3); RBC Red Blood Cell Count 4.27 M/uL (3.86-4.86)
[2019-03-07] MEDS: LEVOTHYROXINE SOD 0.05 MG TABLET PO SCH (06:08)
[2019-03-07 06:10] LABS: Albumin 3.3 g/dL (3.4-5.0); Bilirubin Total 0.3 mg/dL (0.2-1.0); Phosphorus 2.4 mg/dL (2.5-4.9); Potassium 3.7 mmol/L (3.5-5.1); Protein, Total 6.5 g/dL (6.4-8.2)
[2019-03-07] MEDS ORDERED: POTASSIUM PHOS IN 0.9 % NACL 15 MMOL/250 ML BAG IV ONE (07:00)
[2019-03-07] MEDS: INSULIN -REGULAR HUMAN 50 UNIT/0.5 ML ML SQ SCH ×2 (07:30→11:30)
[2019-03-07] MEDS: CEFTRIAXONE/SWI 1gm 1 GM/10 ML SYR IVP SCH (08:32)
[2019-03-07] MEDS: MEMANTINE HCL 10 MG TABLET PO SCH (08:32)
[2019-03-07] MEDS: BUPROPRION HCL S.R. 150MG TAB PO SCH (08:32)
[2019-03-07] MEDS: MULTIVITAMIN TAB PO SCH (08:32)
[2019-03-07] MEDS: GLUCERNA SHAKE 237 ML CAN PO SCH (08:32)
[2019-03-07 08:40] VITALS: TEMP 97.3
[2019-03-07 08:55] VITALS: O2SAT 98
[2019-03-07 12:44] VITALS: BP 160/70
--- NOTE | 2019-03-07 16:06 | P.SSS ---
Patient History Date of Service: 03/07/19 Reason for admission: AMS History of Present Illness: This is a 73 yr old female with a hx of dementia, IDDM, HTN admitted for altered mental status. Per daughter at bedside, pt has had no strenght, some slurring of speech and worsening hallucinations. This has been a progression but has been worse for the past few days. Patient also states that she has had worsening memory along wiht hallucinations. She denies any cp, sob, headache, vision changes, focal weakness, syncope/presyncope, or GI complaints. She did state that she has had some falls recently. Daughter called EMS and patient was brought to the ED. Patient lives with her daughter and granddaughter. In the ED, her BP was 181/82, HR 90, RR 16, 98% on RA and BMI of 26. Her CBC was WNL, her CMP was pending as was her UA and CXR. At the time of my exam, patient's mentation was improved though was still complaining of generalized weakness. On re-review, she was also noted to have a UTI. Allergies No Known Allergies Allergy (Verified 07/20/18 09:15) Home medications list reviewed: Yes Home Medications: RX: Memantine HCl [Memantine HCl ER] 21 mg PO DAILY 05/02/18 RX: Metformin HCl [Glucophage] 1,000 mg PO BID 05/02/18 RX: Pravastatin Sodium 40 mg PO BEDTIME 05/02/18 RX: Alendronate Sodium 70 mg PO EVERY 7TH DAY 03/05/19 RX: Levothyroxine [Synthroid*] 50 mcg PO [id number] 03/05/19 RX: Multivit-Min/Folic Acid/Vit K1 [Multi For Her 50 Plus Softgel] 1 each PO DAILY 03/05/19 RX: Quetiapine Fumarate [Seroquel] 100 mg PO BEDTIME 03/05/19 RX: buPROPion HCl [Bupropion HCl Sr] 150 mg PO BID 03/05/19 RX: Glucerna Shake [Glucerna*] 237 ml PO BID can 03/07/19 RX: Hydralazine [Apresoline*] 10 mg PO QID PRN 30 Days tab 03/07/19 - Past Medical/Surgical History Has patient received pneumonia vaccine in the past: No Diabetic: No -: Dementia -: Hypertension -: Diabetes -: Hypothyroidism -: Cataract -: Cataract rafael sx - Social History Smoking Status: Former smoker Alcohol use: No CD- Drugs: No Caffeine use: Yes Place of Residence: Home Review of Systems 10-point ROS is otherwise unremarkable Physical Examination - Vital Signs Temperature: 97.3 F Blood Pressure: 160/70 Pulse: 100 Respirations: 18 Pulse Ox (%): 98 - Physical Exam General: Alert, In no apparent distress, Oriented x2, Confused HEENT: Atraumatic, PERRLA, Mucous membr. moist/pink, EOMI, Sclerae nonicteric Neck: Supple, 2+ carotid pulse no bruit, No LAD, Without JVD or thyroid abnormality Respiratory: Clear to auscultation bilaterally, Normal air movement Cardiovascular: Regular rate/rhythm, Normal S1 S2 Gastrointestinal: Normal bowel sounds, No tenderness - Diagnosis (Problem(s)) (1) Encephalopathy Status: Acute (2) Dementia Status: Chronic Qualifiers: Dementia type: unspecified type Dementia behavioral disturbance: without behavioral disturbance Qualified Code(s): F03.90 - Unspecified dementia without behavioral disturbance (3) UTI (urinary tract infection) Status: Ruled-out Qualifiers: Urinary tract infection type: acute cystitis Hematuria presence: without hematuria Qualified Code(s): N30.00 - Acute cystitis without hematuria (4) IDDM (insulin dependent diabetes mellitus) Status: Chronic (5) HTN (hypertension) Status: Chronic Qualifiers: Hypertension type: essential hypertension Qualified Code(s): I10 - Essential (primary) hypertension Treatment Summary: Patient was admitted for encephalopathy, likely secondary to UTI versus progressive dementia. Physical therapy was consulted. She was started on IV antibiotics. Her room antibiotics were discontinued on discharge as urine cultures were negative. She did well with physical therapy, though does have confusion at times. Her mentation does wax and wane. Social work was consulted to help with discharge planning/placement as daughter stated that she was not able to care safely for her at this time anymore. Her mentation did improve, though still had bouts of confusion. This may be patient's new baseline mentation. She otherwise remained hemodynamically stable throughout the stay. She was discharged to [facility] once she was accepted. - Disposition Discharge Date: 03/07/19 Disposition: TRANSFER TO HALFWAY Condition: FAIR Patient Discharge Instructions: Please follow up with the primary care physician in 2-3 days. Diet: AHA
[2019-03-08] MEDS ORDERED: LISINOPRIL 10 MG TAB PO SCH (09:00)
[2019-03-12] MEDS ORDERED: ALENDRONATE 70 MG TAB PO SCH (09:00)
== END 2019-03-07 14:12 ==
LOC: ER 11:47 → ERHOLD 14:53 → 4TH 16:10
PROVIDERS: ADMIT Family Medicine; ATTEND Family Medicine
DX: N30.00 Acute cystitis without hematuria (principal); G93.40 Encephalopathy, unspecified; E11.9 Type 2 diabetes mellitus without complications; I10 Essential (primary) hypertension; E03.9 Hypothyroidism, unspecified; F03.90 Unspecified dementia, unspecified severity, without behavioral disturbance, psychotic disturbance, mood disturbance, and anxiety; Z87.891 Personal history of nicotine dependence; Z23 Encounter for immunization
CPT/HCPCS: 93005; 87088; 85025 ×3; 87086; 80048; 36415 ×2; 83735; 84100 ×2; 85610; 82962 ×8; 80076; 84443; 84484; 83690; 80053 ×2; 83880; 70450; 71250; 72125; 71045; 90471; 90670; 97116; 97163; 97530; 94760 ×5; 99284; J0360 ×3; J0696 ×4; J7030 ×5; G0378 ×2; 81003; 81015

== ENCOUNTER 2022-04-02 06:42 | Emergency (ER) | payer MEDICARE ==
--- OUTSIDE RECORDS SUMMARY | 2022-04-02 06:45 | XMS REPORT | Continuity of Care Document ---
:1945 Author Organization [facility] t Address [address] [place] [address] Care Team Providers Name Role Phone J Luis Acosta Attending Clinician Huey Velasco MD Attending Clinician Daisy Garcia MD Attending Clinician DAISY GARCIA Attending Clinician Unavailable Doctor Unassigned, [place] Attending Clinician Unavailable Payers Payer Name Policy Type Policy Number Effective Date Expiration Date S ource Problems This patient has no known problems. Allergies, Adverse Reactions, Alerts Allergy Allergy Status Severity Reaction(s) Onset Inactive Treating Comm ents Source Name Type Date Date Clinician NO KNOWN Drug Active [facility] ALLERGIE Class ity of [facility] Social History Social Habit Start Date Stop Date Quantity Comments [facility] to SARS-[facility]2 Not sure [facility] [place] ([facility]) [facility] Smoking Status Start Date Stop Date Source [facility] Medications Ordered Filled Start Stop Current Ordering Indication Dosage Frequency Signature Comments Components Source Medication Medication Date Date Medication? Clinician (SIG) Name Name permethrin 2019- 2020- No [id number] Apply to [facility] 5 % cream 04-06 area(s) ity of 00:00: 04:59 once now [place] 00 :00 for 1 Medical dose. Branch permethrin 2020- 2020- No [id number] Apply to [facility] 5 % cream 04-06 area(s) ity of 00:00: 04:59 once now [place] 00 :00 for 1 Medical dose. Branch Procedures Procedure Date / Time Performed Performing Clinician [facility] e ASSIGNMENT OF BENEFITS 2020-04-06 15:34:56 Doctor Unassigned, No [facility] Encounters Start End Encounter Admission Attending Care Care Encounter Source Date/Time Date/Time Type Type Clinicians Facility Department ID 2020-04-06 2020-04-06 Office J Luis Acosta [facility] [id number] Univers 10:35:17 10:50:17 Visit Huey VelascoPEC 350.1.1 3.10 ity of Daisy Garcia [id number] [facility] [id number] [facility] 2020-04-06 2020-04-06 Office Karla [facility] [id number] 10:35:17 10:50:17 Visit J Luis FINLEY [id number] [place] [id number] [place] [id number] [facility] 2020-04-06 2020-04-06 Outpatient Dania GARCIA [facility] [id number] Univers 10:45:00 10:45:00 DAISY harrison of [facility] 2020-04-06 2020-04-06 Orders Doctor MCCORMACK [id number] Univers 00:00:00 00:00:00 Only Unassigned, [place] [id number] ity of [place] [facility] [id number] [facility] as [id number] [facility] 009 Branch Results This patient has no known results.
[2022-04-02] MEDS ORDERED: PANTOPRAZOLE 40 MG INJ ONE ×2 (07:08→09:08)
[2022-04-02] MEDS ORDERED: NA CHLORIDE 0.9% 1,000 ML ONE (07:08)
[2022-04-02 07:22] LABS: Absolute Lymphocytes (CBC) 0.9 K/uL (0.7-4.9); Lymphocytes % 4.6 % (15.3-44.8); MCV 92.9 fL (80-100); MPV 10.2 fL (7.6-11.3); RBC Red Blood Cell Count 1.54 M/uL (3.86-4.86)
[2022-04-02 07:39] LABS: Hematocrit 14.3 % (36.0-45.0)
[2022-04-02 07:47] LABS: Albumin 2.3 g/dL (3.4-5.0); Bilirubin Total 0.4 mg/dL (0.2-1.0); Potassium 4.8 mmol/L (3.5-5.1)
--- NOTE | 2022-04-02 08:00 | RAD REPORT ---
EXAM DESCRIPTION: CT - Chest Abd Pelvis Wo Con - 04/02/2022 7:45 am CLINICAL HISTORY: Chest and abdominal pain. GI bleed COMPARISON: None TECHNIQUE: Computed axial tomography of the chest, abdomen and pelvis was obtained. Oral contrast wa s given. IV contrast was not requested. All CT scans are performed using dose optimization technique as appropriate and may include automated exposure control or mA/KV adjustment according to patient size. FINDINGS: The evaluation of mediastinum, lindsey, vessels and solid organs is limited secondary to the lack of IV contrast administration Lungs are clear No mediastinal or hilar lymphadenopathy is seen. A pleural effusion is not present. A pericardial effusion is not seen. The liver, spleen, pancreas, adrenals and kidneys appear grossly normal There is no evidence of diverticulitis. Mild posterior subluxation of L3 on L4. Mild to moderate anterior subluxation of L4 on L5. Atherosclerosis. Marked osteoarthritis right hip Normal appendix IMPRESSION: No acute abnormality is displayed
--- NOTE | 2022-04-02 08:21 | ER ---
Nurse's Notes [facility] Name: Deepika Mobley Age: 76 yrs Sex: Female : 1945 Arrival Date: 04/02/2022 Time: 06:43 Bed 4 Private MD: Diagnosis: GI Bleed/ Gastrointestinal hemorrhage, unspecified-upper;Type 1 diabetes mellitus with hyperglycemia;Anemia, unspecified;Acute kidney failure, unspecified-on chronic Presentation: 04/02 06:43 Chief complaint: EMS states: "Patient came from [place]. She was at her baseline until tw5 they put her in the shower. They described almost like she went into a catatonic state then she started having bloody emesis. When we arrived on scene she wasn't vomiting anymore.". Coronavirus screen: Vaccine status: unknown. Ebola Screen: Patient negative for fever greater than or equal to 101.5 degrees Fahrenheit, and additional compatible Ebola Virus Disease symptoms Patient denies exposure to infectious person. Patient denies travel to an Ebola-affected area in the 21 days before illness onset. Initial Sepsis Screen: Does the patient meet any 2 criteria? HR > 90 bpm. Does the patient have a suspected source of infection? No. Patient's initial sepsis screen is negative. Initial Sepsis Screen: Does the patient meet any 2 criteria?. Risk Assessment: Do you want to hurt yourself or someone else? Unable to obtain. Onset of symptoms is unknown. 06:43 Method Of Arrival: EMS: [facility] tw5 06:43 Acuity: LEWIS 2 tw5 Triage Assessment: 06:46 General: Appears slender, Behavior is crying. Pain: Unable to use pain scale. Does not tw5 appear to understand pain scale. Patient appears to be crying, to be moaning. Neuro: Level of Consciousness is confused. Historical: - Allergies: 06:46 No Known Allergies; tw5 - PMHx: 06:46 Dementia; Diabetes - IDDM; Hypertension; Hypothyroidism; CVA; tw5 - Immunization history:: Adult Immunizations unknown. - Social history:: Smoking status: unknown. Screenin:48 Abuse screen: Denies threats or abuse. Denies injuries from another. tw5 07:39 Nutritional screening: No deficits noted. Tuberculosis screening: Never had TB. Fall ss Risk None identified. Assessment: 07:19 General: Appears in no apparent distress. Behavior is calm, cooperative. Pain: jh6 Complains of pain in gluteal cleft Pain currently is 6 out of 10 on a pain scale. 07:39 Reassessment: Dr. Mirza notified of critical Hgb 4.4 and Hct 14.3. ss 07:47 Reassessment: Dr. Mirza notified of critical lab value. Bicarb 14. ss 08:00 General: attempted to call family to advise of pt being in hospital and that pt will jh6 need to receive blood. was not able to reach daughter or other next of kin listed but left messages to call hospital. . 09:18 General: Spoke with pts daughter Alexandria Carlisle and advised her of her mother jh6 condition and that due to her low blood count that she would need to receive blood product. Daughter gave verbal consent and stated that she would not be able to come to hospital until this afternoon. Also advised family that we are currently attempting to transfer pt to another facility at this time because we do not have GI ironworker foreman but that we would keep her informed for progress. . 09:45 Reassessment: 1st unit of blood started at 75/hr. jg9 10:15 Reassessment: unit of blood running wide open per Dr. Mirza, 2nd unit will be given jg9 during transport [facility]. 10:30 Reassessment: 1st unit of blood completed. jg9 10:45 Reassessment: patient on EMS cart, care transferred over to Speech Correction Consultant. jg9 Vital Signs: 06:43 BP 140 / 74; Pulse 123; Resp 20; Temp 98; Pulse Ox 98% on R/A; Weight 63.5 kg; tw5 07:18 BP 161 / 84; Pulse 112; Resp 16; Pulse Ox 100% ; jh6 09:37 BP 127 / 80; Pulse 122; Resp 17; Pulse Ox 98% ; jh6 10:30 BP 125 / 78; Pulse 117; Resp 14 S; Pulse Ox 99% on R/A; jg9 ED Course: 06:43 Patient arrived in ED. mw2 06:46 Triage completed. tw5 06:46 Arm band placed on Patient placed in an exam room, on a stretcher, on playground monitor, tw5 on pulse oximetry. 06:48 Patient has correct armband on for positive identification. Client placed on continuous tw5 cardiac and pulse oximetry monitoring. NIBP monitoring applied. Door closed. Noise minimized. Moved to private room. Warm blanket given. Verbal reassurance given. 06:48 Served as a crankshaft straightener during rectal exam. hemoccult positive. Maintain EMS IV. Dressing tw5 intact. Good blood return noted. Site clean \\T\\ dry. Gauge \\T\\ site: 22 L hand. 06:50 Justice Velazquez DO is Attending Physician. ms3 07:12 CBC with Diff Sent. mh5 07:12 CMP Sent. 5 07:13 Initial lab(s) drawn, by me, sent to lab. EKG done, by ED staff, reviewed by Justice Velazquez DO. 07:18 Micaela Hidalgo, JAS is Primary Nurse. jh6 07:19 Attending Physician role handed off by Justice Velazquez DO scott 07:19 Jose Luis Mirza MD is Attending Physician. scott 07:[address] via stretcher. jh6 07:47 Chest Abd Pelvis Wo Con In Process Unspecified. EDMS 08:02 initiated transfer with [facility], spoke with Mariya. 3 08:39 Wei cath inserted, using sterile technique, 16 Fr., by wv, balloon inflated, to mb7 gravity drainage, clamped. returned clear yellow urine. Patient tolerated well. 08:45 Inserted saline lock: 20 gauge in right antecubital area, using aseptic technique. 6 Blood collected. 09:17 patient accepted at [facility] [address] Brian Lees, spoke with [facility] Mariya Paredes. 09:27 Bb Add On Sent. jg9 09:34 XRAY Chest (1 view) In Process Unspecified. EDMS 09:40 Inserted saline lock: 22 gauge in right hand, using aseptic technique. jg9 09:57 spoke with Dilia with [facility] agreed to take patient to [facility]. 3 10:49 Patient transferred, IV remains in place. jg9 Administered Medications: 07:10 Drug: NS 0.9% 1000 ml Route: IV; Rate: 1 bolus; Site: left wrist; vc1 07:10 Drug: ProTONIX (pantoprazole) 40 mg Route: IVP; Site: left wrist; vc1 09:20 Drug: ProTONIX (pantoprazole) 40 mg Route: IVP; Site: right antecubital; jg9 09:27 Drug: ProTONIX (pantoprazole) 8 mg/hr Route: IV; Rate: 25 ml/hr; Site: right jg9 antecubital; Medication: 07:39 VIS not applicable for this client. ss Outcome: 08:21 ER care complete, transfer ordered by MD. chavez 10:49 Transferred by ground EMS to [facility], Transfer form completed. jg9 Note: Patient being transported with protonix drip, zosyn, and blood 10:49 Condition: stable 10:51 Patient left the ED. jg9 Signatures: Dispatcher [employer] EDMS Jose Luis Miraz MD MD cha Smirch, Shelby, RN RN Thea Gabriel 5 José Manuel, Elizabeth 3 Fina Wilson 2 Justice Velazquez, DO ms3 Modesta Mobley 5 Micaela Hidalgo, JAS MARK 6 Nayeli Soni [facility] [place] Micaela Milian RN RN jg9 Alicia Torres RN RN vc1 Corrections: (The following items were deleted from the chart) 10:46 10:00 Reassessment: 1st unit of blood completed jg9 jg9
--- NOTE | 2022-04-02 08:21 | EDPHYS ---
Physician Documentation [facility] Name: Deepika Mobley Age: 76 yrs Sex: Female : 1945 Arrival Date: 04/02/2022 Time: 06:43 Bed 4 Private MD: ED Physician Jose Luis Mirza HPI: 04/02 06:52 This 76 yrs old Female presents to ER via EMS with complaints of Altered Mental Status. ms3 06:52 The patient presents with Patient became catatonic when placed in the shower. . Onset: ms3 The symptoms/episode began/occurred 1 hour(s) ago. Possible causes: unknown. Associated signs and symptoms: Pertinent positives: vomiting, Pertinent negatives: chest pain, diaphoresis. Current symptoms: In the emergency department the patient's symptoms have resolved. Patient's baseline: Neuro: orientated to person. 76-year-old female presents via [facility] for brief catatonic state when placed in the shower this morning. Nursing facility, [facility], stated patient was tachycardic and hypertensive. EMS reports on their arrival patient's blood pressure was 70s over 50s, heart rate of 80, 98% on room air. Patient received 100 mL of normal saline in route.. Historical: - Allergies: 06:46 No Known Allergies; tw5 - PMHx: 06:46 Dementia; Diabetes - IDDM; Hypertension; Hypothyroidism; CVA; tw5 - Immunization history:: Adult Immunizations unknown. - Social history:: Smoking status: unknown. ROS: 06:52 Constitutional: Negative for fever, and chills. Cardiovascular: Negative for chest ms3 pain, and palpitations. Respiratory: Negative for shortness of breath, cough, wheezing, and pleuritic chest pain. 06:52 Abdomen/GI: Positive for vomiting. 06:52 All other systems are negative. Exam: 06:49 ECG was reviewed by the Attending Physician. ms3 06:52 Constitutional: This is a well developed, well nourished patient who is awake, alert, ms3 and in no acute distress. Head/Face: Normocephalic, atraumatic. Dried blood on lips Eyes: Pupils equal round and reactive to light, extra-ocular motions intact. Lids and lashes normal. Conjunctiva and sclera are non-icteric and not injected. Periorbital areas with no swelling, redness, or edema. Chest/axilla: Normal chest wall appearance and motion. Nontender with no deformity. Cardiovascular: Regular rate and rhythm with a normal S1 and S2. No gallops, murmurs, or rubs. Normal PMI, no JVD. No pulse deficits. Respiratory: Lungs have equal breath sounds bilaterally, clear to auscultation and percussion. No rales, rhonchi or wheezes noted. No increased work of breathing, no retractions or nasal flaring. Abdomen/GI: Soft, non-tender, with normal bowel sounds. No distension or tympany. No guarding or rebound. No evidence of tenderness throughout. Skin: Warm, dry with normal turgor. Normal color with no rashes, no lesions, and no evidence of cellulitis. MS/ Extremity: Pulses equal, no cyanosis. Neurovascular intact. Full, normal range of motion. 06:52 Back: No spinal tenderness. No costovertebral tenderness. Full range of motion. 06:52 Abdomen/GI: Inspection: abdomen appears normal, Bowel sounds: normal, Palpation: abdomen is soft and non-tender, Rectal exam: rectal tone normal, Stool: guaiac positive, black. 06:52 Neuro: Orientation: to person. 08:48 Abdomen/GI: Rectal exam: Stool: scott Vital Signs: 06:43 BP 140 / 74; Pulse 123; Resp 20; Temp 98; Pulse Ox 98% on R/A; Weight 63.5 kg; tw5 07:18 BP 161 / 84; Pulse 112; Resp 16; Pulse Ox 100% ; jh6 09:37 BP 127 / 80; Pulse 122; Resp 17; Pulse Ox 98% ; jh6 10:30 BP 125 / 78; Pulse 117; Resp 14 S; Pulse Ox 99% on R/A; jg9 MDM: 06:50 Patient medically screened. ms3 06:52 Differential Diagnosis: UTI, GI bleed vs Syncope. Data reviewed: vital signs, nurses ms3 notes, EKG. 08:18 Data interpreted: monitoring and evaluation advisor: rate is 112 beats/min, Pulse oximetry: on room air scott is 100 %. Test interpretation: by ED physician or midlevel provider: ECG, plain radiologic studies. Counseling: I had a detailed discussion with the patient and/or guardian regarding: the historical points, exam findings, and any diagnostic results supporting the discharge/admit diagnosis, lab results, radiology results, the need to transfer to another facility, for higher level of care, [facility] does not immediately have the required specialist. 04/02 06:52 Order name: CBC with Diff; Complete Time: 08:15 ms3 04/02 06:52 Order name: CMP; Complete Time: 08:15 ms3 04/02 06:52 Order name: Lipase; Complete Time: 08:15 ms3 04/02 06:52 Order name: Urine Microscopic Only ms3 04/02 07:45 Order name: Type And Screen 04/02 08:05 Order name: CREATININE WHOLE BLOOD; Complete Time: 08:15 EDMS 04/02 08:09 Order name: SARS RAPID; Complete Time: 08:49 dh3 04/02 08:23 Order name: Bb Add On 04/02 08:25 Order name: Packed RBC Leukored EDSC 04/02 08:53 Order name: Magnesium [facility] 04/02 08:53 Order name: NT PRO-BNP [facility] 04/02 06:52 Order name: CT Abd/Pelvis - IV Contrast Only [facility] 04/02 06:52 Order name: IV Saline Lock; Complete Time: 07:10 ms3 04/02 06:52 Order name: Labs collected and sent; Complete Time: 07:10 nm3 04/02 07:38 Order name: Chest Abd Pelvis Wo Con; Complete Time: 08:15 EDSC 04/02 08:53 Order name: Troponin HS [facility] 04/02 08:53 Order name: XRAY Chest (1 view) [facility] 04/02 08:53 Order name: EKG; Complete Time: 08:56 [facility] 04/02 09:20 Order name: ABO/RH no charge [facility] 04/02 10:10 Order name: Urine Culture EDSC 04/02 08:15 Order name: Wei; Complete Time: 08:39 [facility] 04/02 08:15 Order name: IV Saline Lock - Large Bore; Complete Time: 09:26 [facility] 04/02 08:15 Order name: Transfuse; Complete Time: 10:08 [facility] 04/02 08:53 Order name: Cardiac monitoring; Complete Time: 09:26 [facility] 04/02 08:53 Order name: EKG - Nurse/Tech; Complete Time: 10:26 [facility] 04/02 08:53 Order name: O2 Sat Monitoring; Complete Time: 09:26 scott EC:49 Rate is 124 beats/min. Rhythm is regular. QRS [place] is Normal. MD interval is normal. ms3 Clinical impression: Sinus tachycardia. Interpreted by me. Reviewed by me. Administered Medications: 07:10 Drug: NS 0.9% 1000 ml Route: IV; Rate: 1 bolus; Site: left wrist; vc1 07:10 Drug: ProTONIX (pantoprazole) 40 mg Route: IVP; Site: left wrist; vc1 09:20 Drug: ProTONIX (pantoprazole) 40 mg Route: IVP; Site: right antecubital; jg9 09:27 Drug: ProTONIX (pantoprazole) 8 mg/hr Route: IV; Rate: 25 ml/hr; Site: right jg9 antecubital; Disposition Summary: 04/02/22 08:21 Transfer Ordered Transfer Location: [facility] scott Reason: Higher level of care scott Condition: Fair scott Problem: new scott Symptoms: have improved scott Accepting Physician: to icu, [facility], [facility](04/02/22 10:51) jg9 Diagnosis - GI Bleed/ Gastrointestinal hemorrhage, unspecified - upper scott - Type 1 diabetes mellitus with hyperglycemia scott - Anemia, unspecified scott - Acute kidney failure, unspecified - on chronic scott Forms: - Medication Reconciliation Form scott - SBAR form scott Signatures: Dispatcher [employer] EDMS Jose Luis Mirza MD MD cha Sims, Marcus, DO DO ms3 Modesta Mobley tw5 Micaela Milian RN RN jg9 Alicia Torres RN RN vc1 Corrections: (The following items were deleted from the chart) 07:38 06:57 Abdomen ordered. EDSC EDMS 08:50 08:21 to icu, [facility], [facility] scott scott 10:51 08:50 to icu, [facility], [facility] scott jg9
[2022-04-02 08:47] LABS: SARS-CoV-2 Antigen Rapid Res Negative (Negative)
[2022-04-02] MEDS ORDERED: PANTOPRAZOLE INJ 80 MG in NA CHLORIDE 0.9% 250 ML IV SCH (09:00)
[2022-04-02] MEDS ORDERED: PIPERACIL/TAZO 3.375 GM VIAL IV ONE (09:37)
[2022-04-02] MEDS ORDERED: NA CHLORIDE 0.9% 100 ML ONE (09:37)
[2022-04-02 09:42] LABS: Troponin High Sensitivity 18.4 pg/mL (<58.9)
[2022-04-02 09:43] LABS: Magnesium 1.1 mg/dL (1.8-2.4)
[2022-04-02] MEDS ORDERED: NA CHLORIDE 0.9% 250 ML ONE (09:50)
[2022-04-02 10:06] LABS: Urine Bacteria >50 /HPF (<20)
[2022-04-02 10:57] VITALS: TEMP 98
--- NOTE | 2022-04-02 10:59 | RAD REPORT ---
EXAM DESCRIPTION: Liset Single View04/02/2022 9:32 am CLINICAL HISTORY: cough COMPARISON: 2018 FINDINGS: The lungs appear clear of acute infiltrate. The heart is normal size IMPRESSION: No acute abnormalities displayed
[2022-04-02 11:06] VITALS: BP 125/78; O2SAT 99
--- NOTE | 2022-04-05 08:24 | EKG ---
Test Date: 2022-04-02 Test Time: 06:49:53 Credit Investigator: CARON MEASUREMENT RESULTS: Intervals: Rate: 124 AR: 112 QRSD: 68 QT: 300 QTc: 431 [place]: P: 73 AR: 112 QRS: 76 T: 250 INTERPRETIVE STATEMENTS: Sinus tachycardia Marked ST abnormality, possible inferior subendocardial injury Abnormal ECG Compared to ECG 03/05/2019 15:47:07 ST (T wave) deviation now present Sinus rhythm no longer present Electronically Signed On 04-05-22 08:12:44 CDT by Demarco Mcnulty
== END 2022-04-02 10:51 | disposition short-term general hospital (02) ==
LOC: ER 06:42
PROC: 30233N1 Transfusion of Nonautologous Red Blood Cells into Peripheral Vein, Percutaneous Approach (ICD-10-PCS; principal; 2022-04-02)
DX: K92.2 Gastrointestinal hemorrhage, unspecified (principal); D64.9 Anemia, unspecified; E10.65 Type 1 diabetes mellitus with hyperglycemia; E10.22 Type 1 diabetes mellitus with diabetic chronic kidney disease; I12.9 Hypertensive chronic kidney disease with stage 1 through stage 4 chronic kidney disease, or unspecified chronic kidney disease; N18.9 Chronic kidney disease, unspecified; N17.9 Acute kidney failure, unspecified; F03.90 Unspecified dementia, unspecified severity, without behavioral disturbance, psychotic disturbance, mood disturbance, and anxiety; Z20.822 Contact with and (suspected) exposure to COVID-19
CPT/HCPCS: 93005; 87088; 85025; 87086; 36415; 86900; 83735; 86850; 82565; 86901; 87077; 87186; 81015; 84484; 83690; 80053; 83880; 71250; 74176; 71045; 51702; 99285; 87811; 36430; J2543; C9113 ×3; P9016 ×2; J7050 ×2; J7030

== ENCOUNTER 2022-05-21 12:39 | Emergency (ER) | payer OTHER ==
--- OUTSIDE RECORDS SUMMARY | 2022-05-21 12:44 | XMS REPORT | Continuity of Care Document ---
:1945 Author Organization [facility] t Address [address] [place] [address] Care Team Providers Name Role Phone No, Pcp [facility] Primary Care Physician Unavailable Emre Gamble MD Attending Clinician Pj LOPEZ, Aman Lowe Attending Clinician Didi Lake MD Attending Clinician Daya Feliciano MD Attending Clinician DAYA FELICIANO Attending Clinician Unavailable EMRE GAMBLE Attending Clinician Unavailable No, Pcp [facility] Attending Clinician Unavailable Sheikh JOHN, Lillian Pope Attending Clinician Jose Lobato MD Attending Clinician EMRE GAMBLE Attending Clinician Unavailable Arabella LOPEZ, Silvia Resendez Attending Clinician J Luis Acosta Attending Clinician Huey Velasco MD Attending Clinician Marcela LOPEZ, Jami Patino Attending Clinician MARCELAJAMI CARRI Attending Clinician Unavailable Doctor Unassigned, [place] Attending Clinician Unavailable EMRE GAMBLE Admitting Clinician Unavailable Payers Payer Name Policy Type Policy Number Effective Date Expiration Date S ource Problems Condition Condition Condition Status Onset Resolution Last Treating Co mments Source Name Details Category Date Date Treatment Clinician Date Duodenal Duodenal Disease [facility] 00 [place] Acute Acute Disease Active [facility] blood loss blood loss 8- Ludmila kes anemia anemia 00:00: Medical 00 [place] Dementia Dementia Disease [facility] 8 [facility] behavioral behavioral 00:00: Me dical disturbanc disturbanc 00 Ce nter e e Allergies, Adverse Reactions, Alerts Allergy Allergy Status Severity Reaction(s) Onset Inactive Treating Comm ents Source Name Type Date Date Clinician NO KNOWN Drug Active [facility] ALLERGIE Class ity of [facility] NO KNOWN Allergy Active [facility] ALLERGIE [facility] Social History Social Habit Start Date Stop Date Quantity Comments Source Exposure to Not sure [facility] SARS-CoV-2 (event) [facility] Tobacco use and 2022-04-03 2022-04-03 Never used [facility] exposure 00:00:00 00:00:00 [facility] Sex Ass[birth year] At [birth year] [facility] 00:00:00 00:00:00 [facility] Smoking Status Start Date Stop Date Source Unknown if ever smoked [facility] Current every day smoker 2022-04-03 00:00:00 [facility] Medications Ordered Filled Start Stop Current Ordering Indication Dosage Frequency Signature Comments Components Source Medication Medication Date Date Medication? Clinician (SIG) Name Name amLODIPine 2022- Yes 10mg QD Take [address] [facility] (NORVASC) 8-18 08-18 tablet (10 [place] es 10 MG 00:00: 23:59 mg total) Medica l tablet 00 :00 by mouth Center daily. hydrALAZINE Yes 10mg Take [address] [facility] (APRESOLINE 8-17 by mouth Luke s ) 10 MG 21:49: every 6 Medical tablet 00 (six) Center hours as needed (SBP > 160). lactobacill 2022-0 Yes 2{capsu QD Take [address] us 8-17 le} capsules [facility] rhamnosus, 21:49: by mouth Med ical GG, 00 daily. [place] (CULTURELLE ) 10 billion cell capsule levothyroxi Yes 100ug Take [address] ne 8-17 mcg by [facility]ukes (SYNTHROID, 21:49: mouth Medic al LEVOTHROID) 00 Every Center 100 MCG morning on tablet an empty stomach. lidocaine Yes 2{patch Q24H Place [address] (LIDODERM) 8-17 } patches [facility] 5 % patch 21:49: onto the Medi moiz 00 skin daily Center Remove & Discard patch within 12 hours or as directed by Erik for each knee . melatonin 3 Yes 10mg QD Take [address] mg tablet 8-17 by mouth [facility]ukes 21:49: nightly. Medical 00 Center multivitami Yes 1{tbl} QD Take [address] n with 8-17 tablet by [facility] minerals 21:49: mouth Medical tablet 00 daily. [place] magnesium Yes constipatio 30mL Take [address] [facility] [address] hydroxide 8-17 n mLs by [facility]ukes (magnesium 21:49: mouth Medica l hydroxide) 00 daily as Cente r 400 mg/5 mL needed Susp (constipat ion). memantine Yes moderate to 10mg Q.5D Take [address] [facility] (NAMENDA) 8-17 severe by mouth 2 Ludmila kes 10 MG 21:49: Alzheimer's (two) Medi moiz tablet 00 type times Center dementia daily. pravastatin Yes hyperlipide 40mg QD Take [address] (PRAVACHOL) 8-17 misty by mouth Luke s 40 MG 21:49: daily. Medical tablet 00 Center promethazin Yes 25mg Take [address] [facility] e 8-17 by mouth [facility]ukes (PHENERGAN) 21:49: every 6 Med ical 25 MG 00 (six) Center tablet hours as needed for Nausea. mirtazapine Yes 30mg QD Take [address] (REMERON) 8-17 by mouth [facility]ukes 30 MG 21:49: nightly. Medical tablet 00 Center traMADoL Yes 50mg Take [address] (ULTRAM) 50 8-17 by mouth Luke s mg tablet 21:49: every 8 Medic al 00 (eight) Center hours. acetaminoph Yes 500mg Take [address] en 8-17 mg by [facility]ukes (TYLENOL) 21:49: mouth Medical 500 MG 00 every 6 Center tablet (six) hours as needed for Pain. metFORMIN 2021- No type 2 1000mg Take 1,[address] [facility] (GLUCOPHAGE 04-06 diabetes mg by Ludmila kes ) 1000 MG 19:31: 00:00 mellitus mouth 2 Medical tablet 14 :00 (two) Center times daily with breakfast and dinner. rivastigmin 2021- No dementia 6mg Q.5D Take [address] e tartrate 04-06 associated by mouth 2 [facility] (EXELON) 6 19:30: 00:00 with (two) Medic al MG capsule 28 :00 Parkinson's times C enter disease daily. sertraline 2021- No anxiety 75mg QD Take [address] [facility] (ZOLOFT) 25 04-06 with by mouth Ky es MG tablet 19:30: 00:00 depression daily. Medical 28 :00 Center pantoprazol Yes 40mg Q.5D Take [address] [facility] e - tablet (40 [facility]ukes (PROTONIX) 00:00: mg total) Me dical 40 MG 00 by mouth 2 Center tablet (two) times daily. sertraline Yes anxiety Recommend [facility] (ZOLOFT) 25 -17 with taper as Luke s MG tablet 00:00: depression follows: Medical 00 sertraline Center 50 mg x 7 days (04/07 - 04/13), 25 mg x 7 days (04/14 - 04/20). Last day 04/20. rivastigmin 2022- Yes 1{patch QD Place [address] [facility] e (EXELON) 04-06 } patch onto Ludmila kes 9.5 mg/24 00:00: 23:59 the skin Med ical hour patch 00 :00 daily. Center sucralfate 2021- No 1g Q.5D Take [address] (CARAFATE) 04-06 09-14 mLs (1 g Luke s 100 mg/mL 00:00: 23:59 total) by Ok dical suspension 00 :00 mouth 2 Center (two) times daily for 28 days. hydrALAZINE Yes 10mg Take [address] [facility] [facility] (APRESOLINE 8-15 by mouth Luke s ) 10 MG 17:42: every 6 Medical tablet 58 (six) Center hours as needed (SBP > 160). lactobacill Yes 2{capsu QD Take [address] us 8-15 le} capsules [facility]ukes rhamnosus, 17:42: by mouth Med ical GG, 58 daily. Center (CULTURELLE ) 10 billion cell capsule levothyroxi Yes 100ug Take [address] ne 8-15 mcg by Joe (SYNTHROID, 17:42: mouth Medic al LEVOTHROID) 58 Every Center 100 MCG morning on tablet an empty stomach. lidocaine Yes 2{patch Q24H Place [address] (LIDODERM) 8-15 } patches Joe 5 % patch 17:42: onto the Medi moiz 58 skin daily Center Remove & Discard patch within 12 hours or as directed by Erik for each knee . melatonin 3 Yes 10mg QD Take [address] mg tablet 8-15 by mouth Lukes 17:42: nightly. Medical 58 Center metFORMIN Yes type 2 1000mg Take 1,[address] (GLUCOPHAGE 8-15 diabetes mg by Ky es ) 1000 MG 17:42: mellitus mouth 2 M edical tablet 58 (two) Center times daily with breakfast and dinner. multivitami Yes 1{tbl} QD Take [address] n with 8-15 tablet by Joe minerals 17:42: mouth Medical tablet 58 daily. Center magnesium Yes constipatio 30mL Take [address] hydroxide 8-15 n mLs by Joe (magnesium 17:42: mouth Medica l hydroxide) 58 daily as Cente r 400 mg/5 mL needed Susp (constipat ion). memantine Yes moderate to 10mg Q.5D Take [address] [facility] (NAMENDA) 8-15 severe by mouth 2 Ludmila kes 10 MG 17:42: Alzheimer's (two) Medi moiz tablet 58 type times Center dementia daily. pravastatin Yes hyperlipide 40mg QD Take [address] (PRAVACHOL) 8-15 misty by mouth Luke s 40 MG 17:42: daily. Medical tablet 58 Center promethazin Yes 25mg Take [address] [facility] e 8-15 by mouth [facility]ukes (PHENERGAN) 17:42: every 6 Med ical 25 MG 58 (six) Center tablet hours as needed for Nausea. mirtazapine Yes 30mg QD Take [address] (REMERON) 8-15 by mouth Lukes 30 MG 17:42: nightly. Medical tablet 58 Center rivastigmin Yes dementia 6mg Q.5D Take [address] [facility] e tartrate 8-15 associated by mouth 2 [facility] (EXELON) 6 17:42: with (two) Medica l MG capsule 58 Parkinson's times C enter disease daily. traMADoL Yes 50mg Take [address] (ULTRAM) 50 8-15 by mouth Luke s mg tablet 17:42: every 8 Medic al 58 (eight) Center hours. acetaminoph Yes 500mg Take [address] en 8-15 mg by [facility]ukes (TYLENOL) 17:42: mouth Medical 500 MG 58 every 6 Center tablet (six) hours as needed for Pain. sertraline Yes anxiety 75mg QD Take [address] (ZOLOFT) 25 8-15 with by mouth Luke s MG tablet 17:42: depression daily. [address] permethrin 2020- No [id number] Apply to Univers 5 % cream 04-06 area(s) ity of 00:00: 04:59 once now [place] 00 :00 for 1 Medical dose. Branch permethrin 2020- No [id number] Apply to Univers 5 % cream 04-06 area(s) ity of 00:00: 04:59 once now [place] 00 :00 for 1 Medical dose. Branch Vital Signs Vital Name Observation Time Observation Value Comments Source HEIGHT 2022-04-02 13:00:00 154.9 cm WEIGHT 2022-04-02 13:00:00 44.9 kg HEIGHT 2022-04-02 13:00:00 154.9 cm WEIGHT 2022-04-02 13:00:00 44.9 kg HEIGHT 2022-04-02 13:00:00 154.9 cm WEIGHT 2022-04-02 13:00:00 44.9 kg Systolic blood 2022-04-06 19:35:00 116 mm[Hg] [facility] Diastolic blood 2022-04-06 19:35:00 49 mm[Hg] [facility] Heart rate 2022-04-06 19:35:00 115 /min [facility] Body temperature 2022-04-06 19:35:00 36.78 Shanell [facility] Respiratory rate 2022-04-06 19:35:00 18 /min [facility] Oxygen saturation in 2022-04-06 19:35:00 98 /min [facility] Arterial blood by Medical Ce nter Pulse oximetry Systolic blood 2022-04-05 12:00:00 123 mm[Hg] [facility] Diastolic blood 2022-04-05 12:00:00 98 mm[Hg] [facility] Heart rate 2022-04-05 12:00:00 97 /min [facility] Body temperature 2022-04-05 12:00:00 36.72 Shanell [facility] Respiratory rate 2022-04-05 12:00:00 20 /min [facility] Oxygen saturation in 2022-04-05 12:00:00 97 /min [facility] Arterial blood by Medical Ce nter Pulse oximetry Body height 2022-04-02 13:00:00 154.9 cm [facility] Body weight 2022-04-02 13:00:00 44.9 kg [facility] BMI 2022-04-02 13:00:00 18.70 kg/m2 [facility] Procedures Procedure Date / Time Performing Clinician Source Performed POCT-GLUCOSE METER 2022-04-06 18:17:00 Daya Feliciano [facility] SARS-COV2/RT-PCR ([facility] & 2022-04-06 18:05:00 Daya Feliciano [facility] LABS) [place] POCT-GLUCOSE METER 2022-04-06 11:31:00 Daya Feliciano [facility] POCT-GLUCOSE METER 2022-04-06 06:32:00 Didi Lake [facility] BASIC METABOLIC PANEL 2022-04-06 04:24:00 Cheryle-Kaden, Sung In [facility] CBC W/PLT COUNT & AUTO 2022-04-06 04:24:00 Cheryle-Kaden, Sung In [facility] MAGNESIUM 2022-04-06 04:24:00 Cheryle-Kaden, Sung In [facility] CBC W/PLT COUNT & AUTO 2022-04-06 04:24:00 Cheryle-Kaden, Sung In [facility] POCT-GLUCOSE METER 2022-04-05 21:27:00 Mani Lakeoldhams Liliam [facility] POCT-GLUCOSE METER 2022-04-05 18:43:00 Mani Lakeoldhams Liliam [facility] POCT-GLUCOSE METER 2022-04-05 12:40:00 Didi Lake [facility] POCT-GLUCOSE METER 2022-04-05 06:40:00 Cheryle-Kaden, Sung In [facility] BASIC METABOLIC PANEL 2022-04-05 05:52:00 Cheryle-Kaden, Sung In [facility] (7) Center CBC W/PLT COUNT & AUTO 2022-04-05 05:52:00 Cheryle-Kaden, Sung In [facility] MAGNESIUM 2022-04-05 05:52:00 Cheryle-Kaden, Sung In [facility] CBC W/PLT COUNT & AUTO 2022-04-05 05:52:00 Cheryle-Kaden, Sung In [facility] POCT-GLUCOSE METER 2022-04-04 21:16:00 Cheryle-Kaden, Sung In [facility] POCT-GLUCOSE METER 2022-04-04 11:47:00 Emre Gamble [facility] POCT-GLUCOSE METER 2022-04-04 08:02:00 Yoana, Samim [facility] CBC W/PLT COUNT & AUTO 2022-04-04 04:09:00 Carlosnodania [facility] DIFFERENTIAL [facility] CBC W/PLT COUNT & AUTO 2022-04-04 04:09:00 Carlosnor [facility] DIFFERENTIAL [facility] MAGNESIUM 2022-04-04 04:09:00 Claudia [facility] BASIC METABOLIC PANEL 2022-04-04 04:09:00 Claudia [facility] (7) [facility] POCT-GLUCOSE METER 2022-04-04 00:04:00 Yoana [facility] PREPARE LEUKO-REDUCED 2022-04-03 23:54:00 Sherin Bennett [facility] POCT-GLUCOSE METER 2022-04-03 22:03:00 Yoana [facility] POCT-GLUCOSE METER 2022-04-03 18:31:00 Yoana [facility] POCT-GLUCOSE METER 2022-04-03 13:18:00 Yoana [facility] HEMOGLOBIN AND 2022-04-03 13:11:00 Claudia [facility] HEMATOCRIT [facility] TISSUE EXAM 2022-04-03 12:08:00 Sheikh [facility] ESOPHAGOGASTRODUODENOSCO 2022-04-03 11:30:00 Lillian Noriega [facility] PY, WITH SCLEROSING Center AGENT INJECTION ESOPHAGOGASTRODUODENOSCO 2022-04-03 11:30:00 Sheikh [facility] PY, WITH HEMORRHAGE Center CONTROL ESOPHAGOGASTRODUODENOSCO 2022-04-03 11:30:00 [facility] BIOPSY Center ESOPHAGOGASTRODUODENOSCO 2022-04-03 11:30:00 Sheikh [facility] ORA, WITH SUBMUCOSAL Center INJECTION REPORT OF PROCEDURE - 2022-04-03 11:16:57 Lililan Noriega [facility] ENDOSCOPY URL Center POCT-GLUCOSE METER 2022-04-03 08:17:00 Yoana Gaetanomario Nigel [facility] CBC W/PLT COUNT & AUTO 2022-04-03 03:24:00 Lernodania [facility] DIFFERENTIAL [facility] LACTIC ACID, VENOUS 2022-04-03 03:24:00 [facility] [place] CBC W/PLT COUNT & AUTO 2022-04-03 03:24:00 Lernor [facility] DIFFERENTIAL [facility] MAGNESIUM 2022-04-03 03:24:00 Claudia [facility] BASIC METABOLIC PANEL 2022-04-03 03:24:00 Claudia [facility] (7) [facility] TRANSFUSE LEUKO-REDUCED 2022-04-02 23:45:00 Sherin Bennett [facility] RED BLOOD CELLS Center HEMOGLOBIN AND 2022-04-02 21:55:00 Claudia [facility] HEMATOCRIT [facility] POCT-GLUCOSE METER 2022-04-02 21:54:00 [facility] POCT-GLUCOSE METER 2022-04-02 17:30:00 Yoana [facility] ABORH, MANUAL 2022-04-02 16:19:00 Magaly Cary [facility] LACTIC ACID, VENOUS 2022-04-02 16:19:00 Anhcarellburke [facility] POCT-GLUCOSE METER 2022-04-02 13:43:00 Yoana [facility] SODIUM, RANDOM URINE 2022-04-02 13:01:00 Benson [facility] CREATININE, RANDOM URINE 2022-04-02 13:01:00 Claudia [facility] TYPE AND SCREEN, 2022-04-02 12:38:00 Claudia [facility] AUTOMATED [facility] CBC W/PLT COUNT & AUTO 2022-04-02 12:38:00 Claudia [facility] DIFFERENTIAL [facility] CBC W/PLT COUNT & AUTO 2022-04-02 12:38:00 Claudia [facility] DIFFERENTIAL [facility] PROTHROMBIN TIME/INR 2022-04-02 12:38:00 Claudia [facility] FIBRINOGEN 2022-04-02 12:38:00 Claudia [facility] COMPREHENSIVE METABOLIC 2022-04-02 12:38:00 Claudia [facility] PANEL [facility] MAGNESIUM 2022-04-02 12:38:00 Claudia [facility] LACTIC ACID, VENOUS 2022-04-02 12:38:00 Claudia [facility] BLOOD GAS, VENOUS 2022-04-02 12:38:00 Claudia [facility] IRON, TIBC, % SAT. 2022-04-02 12:38:00 [facility] (WITHOUT FERRITIN) [facility] FERRITIN 2022-04-02 12:38:00 [facility] VITAMIN B12 2022-04-02 12:38:00 [facility] HEMOGLOBIN AND 2022-04-02 12:38:00 Claudia [facility] HEMATOCRIT [facility] URINE CULTURE 2022-04-02 12:29:00 Claudia [facility] URINALYSIS W/ REFLEX 2022-04-02 12:29:00 [facility] URINE CULTURE [facility] ASSIGNMENT OF BENEFITS 2020-04-06 15:34:56 Doctor Unassigned, No [facility] Branch Plan of Care Planned Activity Planned Date Details Comments Source Future Scheduled 2022-04-21 INFLUENZA VACCINE (#1) [facility] 00:00:00 [code = INFLUENZA Medical Ce nter VACCINE (#1)] Future Scheduled 2022-04-21 INFLUENZA VACCINE (#1) [facility] 00:00:00 [code = INFLUENZA Medical Ce nter VACCINE (#1)] Future Scheduled 2021-08-[address] [facility] Test 00:00:00 (12+) [code = Medical Center DEPRESSION SCREENING (12+)] Future Scheduled 2021-08-21 FALLS RISK SCREENING [facility] Test 00:00:00 [code = FALLS RISK Medical C enter SCREENING] Future Scheduled 2021-08-21 Medicare IPPE (WELCOME [facility] 00:00:00 TO MEDICARE) [code = Medical Center Medicare IPPE (WELCOME TO MEDICARE)] Future Scheduled 2021-08-21 FALLS RISK SCREENING [facility] Test 00:00:00 [code = FALLS RISK Medical C enter SCREENING] Future Scheduled 2021-08-21 Medicare IPPE (WELCOME [facility] 00:00:00 TO MEDICARE) [code = Medical Center Medicare IPPE (WELCOME TO MEDICARE)] Future Scheduled 1993 SHINGLES VACCINES ([address] [facility] Test 00:00:00 of 2) [code = SHINGLES Medic al Center VACCINES (1 of 2)] Future Scheduled 1993 SHINGLES VACCINES ([address] [facility] Test 00:00:00 of 2) [code = SHINGLES Medic al Center VACCINES (1 of 2)] Future Scheduled 1962 DTAP/TDAP/TD VACCINES [facility] 00:00:00 (1 - Tdap) [code = Medical C enter DTAP/TDAP/TD VACCINES (1 - Tdap)] Future Scheduled 1962 DTAP/TDAP/TD VACCINES [facility] 00:00:00 (1 - Tdap) [code = Medical C enter DTAP/TDAP/TD VACCINES (1 - Tdap)] Future Scheduled 1961 HEPATITIS C SCREENING [facility] 00:00:00 [code = HEPATITIS C Medical Center SCREENING] Future Scheduled 1961 HEPATITIS C [facility]CRE[facility]ING [facility] 00:00:00 [code = HEPATITIS C Medical Center SCREENING] Future Scheduled 1949 PNEUMOCOCCAL 65+ Y[facility] Test 00:00:00 (1 - PCV) [code = Medical Ce nter PNEUMOCOCCAL 65+ YRS (1 - PCV)] Future Scheduled 1949 PNEUMOCOCCAL 65+ Y[facility] Test 00:00:00 (1 - PCV) [code = Medical Ce nter PNEUMOCOCCAL 65+ YRS (1 - PCV)] Future Scheduled 1948 COVID-19 VACCINE (#1) [facility] 00:00:00 [code = COVID-[address] VACCINE (#1)] Future Scheduled 1945 COVID-19 VACCINE (#1) [facility] 00:00:00 [code = COVID-[address] VACCINE (#1)] Future Scheduled 1945 DXA SCAN [code = DXA [facility] 00:00:00 SCAN] [facility] Center Future Scheduled 1943 DXA SCAN [code = DXA [facility] Test 00:00:00 SCAN] [facility] Center Encounters Start End Encounter Admission Attending Care Care Encounter Source Date/Time Date/Time Type Type Clinicians Facility Department ID 2022-04-02 2022-04-06 [facility] Emre Gamble [facility] [id number] 11:45:00 21:48:00 Encounter Amna Oliva [facility] 2022-04-02 2022-04-06 Inpatient ER OJDIE, [facility] Gastro [id number] SLE 11:45:00 21:48:00 DAYA 2022-04-04 2022-04-04 Outside No, Pcp [facility] [id number] 00:00:00 00:00:00 Orders [facility] 2022-04-04 2022-04-04 Outside No, Pcp [facility] [id number] 00:00:00 00:00:00 Orders [facility] 2022-04-03 2022-04-03 Surgery , [facility] [id number] 11:30:00 12:30:00 Lilliankesha [facility] 2022-04-03 2022-04-03 Surgery , [facility] [id number] 11:30:00 12:30:00 Lillian [facility] 2022-04-03 2022-04-[address] [facility] [id number] 11:38:00 12:28:00 Event [facility] 2022-04-03 2022-04-[address] [facility] [id number] [id number] 11:38:00 12:28:00 Event [facility] 2022-04-02 2022-04-02 Outpatient SERENITY GAMBLE [id number] [facility] 00:00:00 00:00:00 EMRE daniels 2022-04-02 2022-04-02 [id number] 00:[facility]00 00:00[facility]00 [facility] 2022-04-02 2022-04-02 [id number] 00:00:00 00:00:00 [facility] 2020-04-06 2020-04-06 [facility] [id number] 10:35:17 10:50:17 Visit J Luis FINLEY [id number] [place] [address] [id number] AND WILLIE [facility] 2020-04-06 2020-04-06 Office J Luis Acosta [facility] [id number] [facility] 10:35:17 10:50:17 Visit Huey VelascoPEC [id number] 3.10 hunter Jami Garcia [id number] [facility] [id number] [facility] AND WILLIE [address] [place] [address] DIABETES CLINIC 2020-04-06 2020-04-06 Outpatient Dania GARCIA [facility] [id number] Univers 10:45:00 10:45:00 JAMI harrison [facility] 2020-04-06 2020-04-06 Orders Doctor KSENIA [id number] Univers 00:00:00 00:00:00 Only Unassigned, CHARBEL [id number] ity of [place] [facility] [id number] Rico as [phone] [place] [address] Branch Results Test Description Test Time Test Comments Results Result Comments Source Tissue Exam 2022-04-07 13:47:51 Test Item Value Reference Range Interpretation Comme nts Case Report (test code = 104) Surgical Pathology Report Case: [id number] Authorizing Provider: Lillian Noriega MD Collected: 04/03/2022 12:08 PM Ordering Location: [place] [address] ICU Received: 04/04/2022 08:46 AM Pathologist: Crystal Beckford MD Specimen: Biopsy, Gastric, rule out H Pylori DIAGNOSIS (test code = 3220) t7lcjZJjFSHth8dsTJBfnHVxFnTkDbXbRdNhTq p cdWMxIHtccnRmMVxlcGljOTYwMlxhbnNpXHNwbH UpS6BbiziuYVtxBW4yGR6snVjjqZBvrTSnILWlR aSpu0dcb175pGSer9ycRHYQkacnzCx6lHueB72g z0E1EcltS41pfNMjADO6PGHjGTIstRElGAHyXNW 9HAQjtYNoK7pxBNOyIY1uioinNIbfKLpjJSHddN J6SILsgYTsK4KzZZWaPKtqNVVfehq6EkXvRg6pp VFtkZqcVEerYMNiWWFwUKrqNSCqYkPdJ2JVWBQS BRrqW4dCOTGNX0SeP0SIT4uKXJHXEYKZIJ5GU2j 4KYAspmx5JSIcABDUEZKAWIOSZvUaA6gTUtXVTo DGAKBLH7TkR6kRIHDPZkKNKXOFN2cEQ4yZUYVZE BDSPZEON63yvMTlYIKsKwEjImNDRSKWLpDmRp6Y BAvCBIbEK7BXD9BYNiTSKXMNJ25IL3PYXWKPWeD GFsWRE8FRZX3AULPJXUnIPeHpuFMsnCnxamVoJS ele6RgGRbfHVZdTG8toBxpOHEqPX6gBCJbT5znd A4qmea4RjUwYPCeZsG1LYMjwpE3Ydo4HGDqGNqk d4xec7UkUUHfDUq6zJqdMcMaLWGcy8uwanYnWrE bFJAmKHPpOPNioLHkI038f9buy6wsrgOsjTU9PD HaDUN8YOtuliGeacY6IOlvcKGgTsE5HJtldyXuV MsmozQmrtRcLhy5SENeC353RNS1sOhbp2urFON8 OXTgXYZwXmHpLp2gbAPcO057GUHhUWALIBDhwKx 9YLHwrnJhsoKpcHYJl341J474m1zeUNCcasIfuQ aLdzifm4ibU489ITDlaSYkmwDsIqFzSQDruMIdi ZP0CNGhIT6xfpjcNGxrFHnhXMIhzxQ5QUVciLOe U9XhAZJkIW9tpijqEVF4PJjdFMKuHBP6LcQkUIT pf2Emvwg8QvQyzr6jan30OHN1a8MqdCbuWYP0JC D6JmLcUz8lpZZaVYQcNT5fVrCklEDbTWLpat56i DetDYkhHWX4SFMegtNwd6Zxt4flJvXciyUdL4rq G2QuUGZzQFYjLYSgUdEoyaDtu5Iel4HlaZCmfMl 5b2lwISAgXEHweUqeq0lyXGK9WEXrjRGnW7qzpT 9eRHCbJL5qsioyx9heBPzkOEfeFCNehAI0ztB3A TPumJOxZ8ZyyY2eZVHzLBgnZINkwrd9YfZbDd6k dGVyeTcyMFxzYmtwYWdlXHBnbmNvbnRccGduZGV jXHBsYWluXHBsYWluXGYwXGZzMjRccWxcbGFuZz WtXuFyxXtwsLruXMibCfDqEKAqCMgaR9bkPjFcO wVoOef8VVVryPSrMTUwVtb5VBNgfHFzKZLUjKol xT6bAODouRkzwJ1jsXD6SWQcxcQoxQFVcE0cECC PbY2gFwU7DKDvQrk1ZUG3MzKajOGlrH4= CPT Code(s) (test code = 3357) m4tzcLGpXDStcZN2NqFdSMVow7eam0AojVVf cGF lJMamoIRdhaFqic19sFP7kL70VZ9yAHJbBbW1UG IasfN4Wen2OQCmZSPejBXxB345d1rrt6ebdcNhy UP6lDtfESBazvnqKlE0EPpcDQBfjuqkXOb6AVei GQKnfKW0KORhhFWwJ8WwXZEnXS4ehns6AVS9ACt kYJGcIqJ5KDZzdGQqOHPsqQxoGHibo427RQN8Tt UiDZEqcsUfdBvjxA4mGnWiUEL7LSSyKZsxPEU0 CLINICAL HISTORY (test code = 3356) g4grxKQkHTOahPS2RoOwGNCbp3zdi5Y sdHBncGF cRGrbaYUenbOjef05gQC8lZ10KR7vLIQiXfU0PQ AhthM5Nyi1NGIdXJSlkNHoX048k0qwe3oajrReq BQ0aMynHYCdwwgpZfR1VTumBIFrhhklGVc7OUux GLNttNX2ADFwyADdR9VoWUSnLG7qdaa7YZG1THh sSWRrVdW2VZVcpJYeJVVpaKlwMIbvj372NHX9Ju SiCLFdqvJymMwcbG6rRfCrDICZBZCnoJVabX== GROSS DESCRIPTION (test code = c3jlfHSxQPHuhLTEWJGrE8xdudUoWATlbJVz Z3B [id number]) tvdbwDZrzMX6wHM3cqCbygUWfpEQtDC4AZDWiVb TxLVUpnRXjfzZcMiHhGZVzmVEzzFP9INKhQB5we ooxGLhpUAjvCRLnnhB7DIOauOWmW0VrOWLfSK3o jncyGDA0RIkuvZ3njlRIZjsdAg8leRQcjCsxIsN sZfBwDDFfCDVkXZKdwRajSGUhKLf8oF0HCyucJ4 4bh5Y3Rzs7MCPiZAEbY7FbTU0yTWSzmBCdW49AO bcoXNU7MECUWygoRZZmOX5Kk8zhXZMasVEgVXR4 ABkqeVViZSFsWZMaTBe0IIKwRYxhmWMxKN7phGu fEegnyWxwj5XhzNBuJYeqZHLjVIFjWBwrGGYmGW 4DJuAiESYlFZQ2EXtdIVr2ARy6YH3TXqAxSXQbK DP5JbD0GyWyNMj4ZRtdVO9IYQTsLGUsGQEfWSY3 YQJ9CIUdEZDpRpUqOVXnAUHdHSxiYKnlnGGtEM7 ooWlyfCCpvrPIBdTZzX8yk9obKYiad9WeoMPjRD BhciANClxlcGljTmVzdERvYzEgDQpcbHRycGFyX GxpbjBccmluMCANClxsdHJjaFxjZjFcZnMyMCBS HJIplDWmLMSyntUtn7RvFFqrgjSkVSVwcKWwVTw ewVpdsDydBXClwIhvuzIgV1Q6xrDcAV5wACOkHN XeZ4SfBSVpS30oKNCrnU5gCYSeVU1pSFm8SFJlA CMyDevgD9IzyRAvCnPyTOCtDYNeoFYiXPTbSkUm dZxfq0QwZHBlDKumXG20jnSqIGOeeLQmkoauvEM jdF9jGE4rNNTqAYpjWIsrDUO0AFB5VMKhiQGfg6 hgowmml8giL5bpSQYaYHL4Mx9ocHZxTXXuyqA0k 3EuNXxvDTZbZpumTWUoBJrsfPTaDM4BXKZoDTjw roDpKURxuBZjUPFhC0JaiHjedomiJUNwDEdIIYw MM3PNDU3SCRZsXOwoYQJchJEBPFV5SY7lPNujdT RxkrglIGSyH8YtS8OikdEbmPHwPZWipyQsf7iaM UL6DJIfhPGxnMSaRfOqXebyRNX2IYkif5ojZHX2 TJQijYIfbKEtFIviViCqKjfvTJBxD4KnQ1WfmbP 9DQp9 MICROSCOPIC DESCRIPTION (test code = w4lqrQOcAGChwJK6DzArDJRyy5bjs6 [place] [address]) sXSelxDFbfuTllk32oRJ5aC96MR6rLORxYtF6PK SueqT7Wkf7CZEqRJTvyBUtA327q1wdk9qskyCxj CM7xXepQOSnzdapBkD5HDavAUBsqqprIIt7UTak ZVOuzBA9XVFcjMNsT6CaVLHbFK4juaf9MZP0ABa eSSIrTiN1YHGxuPDmCTUstSbsWTsjl720MND6Uk HkNXUbwhEpmFwbrF3fIrCdPAODsoGrvXdumCRzS 9HzyAGdbxGqCW4vAWNte43lIOwrzJPowZdzJEap xWG0NLSkRANlUEdaQVkjlDhsr4laOR8pKZ1dnGf gyhAmC2ixyLSqy4Ktca4tUs4yXKFxlPJzPeIhaJ VnQS3wF2Fes7GqJK7gi80dRLJcKDNhLELhMU1lL IEqkUVlavWne9MzvC4aHhHjCQUtxr7= Gross assessment was performed at (test [facility] enter, code = 2777) Department of Pathology, [address] [place] [address], Technical component was performed at [facility] er, (test code = 2778) Department of Pathology, [address] [place] [address], Professional component was performed at [facility] enter, (test code = 2779) Department of Pathology, [address] [place] [address], [facility] [id number] 13:47:51Surgical Pathology Report Case: [id number] Authorizing Provider: Lillian Noriega MD Collected: 04/03/2022 12:08 PM Ordering Location: [place] [address] ICU Received: 04/04/2022 08:46 AM Pathologist: Crystal Beckford MD Specimen: Biopsy, Gastric, rule out H Pylori STOMACH, SITE NOT SPECIFIED, BIOPSY: -ANTRAL AND OXYNTIC MUCOSA WITH NO PATHOLOGIC ALTERATION -NEGATIVE FOR HELICOBACTER MICROORGANISMS ONROUTINE STAINS Signing Pathologist Direct Phone Line: [phone] signed by Crystal Beckford MD on 04/07/2022 at 1:47 [id number]. Biopsy, Gastric.Received in formalin labeled with the patient's name, medical record number and "gastric" are 2 cheng soft tissue fragments measuring up to 0.3 cm in greatest dimension, which are submitted in toto in A1.LONNIE Petit, HT (ASCP)No significant inflammation, intestinal metaplasia, dysplasia or malignancy is seen. No Helicobacter microorganisms are seen on routine stains. [facility], Department of Pathology, [address] [place] [address], [facility], Department of Pathology, [address] [place] [address], [facility], Department of Pathology, [address] [place] [address], ILHX-CoV2/RT-PCR (Asymptomatic ONLY)2022-04-06 19:57:15 Test Item Value Reference Interpretation Comments Range SARS-COV2/RT-PCR Negative Negative The SARS-Co V-2 (test code = target nucleic 12167-0) acids are not detected in thi s specimen. Negat pedro results do not preclude SARS-C oV-2 infection and should not be u sed as the sole bas is for patient management decisions. Nega tive results must be combined with clinical observations, patient history , and epidemiolog ical information. A false negative result may occu r if a specimen is improperly collected, transported or handled. This S ARS CoV-2 test is a rapid, real-pili e RT-PCR test intended for th e qualitative detection of nucleic acid fr om SARS-CoV-2 in a nasopharyngeal swab specimen collec arash from individual s suspected of COVID-19 by the ir healthcare provider. KEVIN (test code = This test has been KEVIN) authorized by FDA under an EUA for use by authorized laboratories. This test is only authorized for the duration of the declaration that circumstances exist justifying the authorization of emergency use of in vitro diagnostic tests for detection and/or diagnosis of COVID-19 under Section 564(b)(1) of the Federal Food, Drug and Cosmetic Act, 21 U.S.C. 360bbb-3(b)(1), unless the authorization is terminated or revoked sooner. Fact Sheet for Healthcare Providers: https://www.[employer]/Documents/Xp ert%20Xpress%20SAR S%20CoV-2/Fact%20S heets/302-3888%20S ARS-COV-2%20HEALTH CARE%20PROVIDERS%2 0FACT%20SHEET.pdf Fact Sheet for Healthcare Patients: https://www.[employer]/Documents/Xp ert%20Xpress%20SAR S%20CoV-2/Fact%20S heets/302-3801%20S ARS-COV-2%20PATIEN T%20FACT%20SHEET.p df Lab Interpretation Normal (test code = 19488-6) [facility] & REF LAB[facility])2022-04-06 19:57:15 Test Item Value Reference Range Interpretation Comments SARS-COV2/RT-PCR Negative Negative The SARS-Co V-2 target (test code = nucleic acids a re not 3532204) detected in thi s specimen. Negative result s do not preclude SARS-C oV-2 infection and s hould not be used as the calderon e basis for patient managem ent decisions. Nega tive results must be combine d with clinical observ ations, patient history , and epidemiological information. A false negativ e result may occur if a spec imen is improperly gordon ected, transported or handled. This SARS CoV-2 test is a rapid, real-time RT-PC R test intended for th e qualitative detection of nu cleic acid from SARS-CoV-2 in a nasopharyngeal swab specimen collected from individuals suspected of CO VID-19 by their healthcar e provider. This test has been authorized by FDA under an EUA for use by authorized laboratories. This test is only authorized for the duration of the declaration that circumstances exist justifying the authorization of emergency use of in vitro diagnostic tests for detection and/or diagnosis of COVID-19 under Section 564(b)(1) of the Federal Food, Drug and Cosmetic Act, 21 U.S.C. 360bbb-3(b)(1), unless the authorization is terminated or revoked sooner. Fact Sheet for Healthcare Providers: https://www.[employer] m/Documents/Xpert%20Xpress%20SARS%20CoV-2/Fact%20Sheets/302-3802%47WTKF-KEW-4%20 HEALTHCARE%20PROVIDERS%20FACT%20SHEET.pdf Fact Sheet for Healthcare Patients: https://www.[employer]Documents/Xpert%20Xp ress%20SARS%20CoV-2/Fact%20Sheets/302-3801%13SWYE-WTQ-7%20PATIENT%20FACT%20SHEET .pdfPOC-Glucose [id number] 18:34:16 Test Item Value Reference Range Interpretation Comments POC-Glucose Meter (test 120 mg/dL 70-110 H : TE STED AT [facility] code = 1538) [address] [facility], 770 30: Preventive Medicine Specialist/Techni vivek ID = [id number] for DANIEL MARRUFO Lab Interpretation (test Abnormal code = 45801-8) [facility] [id number] 18:34:16 Test Item Value Reference Range Interpretation Comments POC-GLUCOSE METER 120 mg/dL 70-110 H : TESTED A T [facility] 6720 (BEAKER) (test code = [facility], 1538) [address]: Preventive Medicine Specialist/Techni vivek ID = [id number] for DANIEL PEREZ POCT-GLUCOSE [id number] 11:43:36 Test Item Value Reference Range Interpretation Comments POC-GLUCOSE METER 123 mg/dL 70-110 H : TESTED A T [facility] 6720 (BEAKER) (test code = [facility], 1538) [address]: Preventive Medicine Specialist/Techni vivek ID = [id number] for ISABELLE PEREZNA POCT-GLUCOSE [id number] 06:59:27 Test Item Value Reference Range Interpretation Comments POC-GLUCOSE METER 102 mg/dL 70-110 : TESTED A T [facility] 6720 (BEAKER) (test code = [facility], 1538) [address]: Preventive Medicine Specialist/Techni vivek ID = [id number] for Samson Bruno BASIC METABOLIC [id number] 06:21:28 Test Item Value Reference Range Interpretation Comments SODIUM (BEAKER) 144 meq/L 136-145 (test code = 381) POTASSIUM 4.3 meq/L 3.5-5.1 (BEAKER) (test code = 379) CHLORIDE (BEAKER) 113 meq/L 98-107 H (test code = 382) CO2 (BEAKER) 25 meq/L 22-29 (test code = 355) BLOOD UREA 14 mg/dL 7-21 NITROGEN (BEAKER) (test code = 354) CREATININE 0.75 mg/dL 0.57-1.25 (BEAKER) (test code = 358) GLUCOSE RANDOM 103 mg/dL 70-105 (BEAKER) (test code = 652) CALCIUM (BEAKER) 8.1 mg/dL 8.4-10.2 L (test code = 697) EGFR (BEAKER) 81 Interpretatio n of eGFR (test code = mL/min/1.73 values Stage De scription 1092) sq m Result G1 Sunshine l or high >=90 G2 Mildly decreased 60-89 G3a Mildl y to moderately 45-5 9 G3b Moderately to s everely 30-44 G4 Sever ly decreased 15-29 G5 Kidney failure <15Repo rted eGFR is based on the CKD-EPI 2020 equation t hat does not use a race coefficientEsti mated GFR is not as accur ate as Creatinine Sherin gonsalves in predicting glom erular filtration rate . Estimated GFR is not appl icable for dialysis patien ts Preventive Medicine Specialist ID - KELSI [id number] 06:21:28 Test Item Value Reference Range Interpretation Comments MAGNESIUM (BEAKER) (test code = 1.7 mg/dL 1.6-2.6 627) Preventive Medicine Specialist ID - KELSI MCBC W/PLT COUNT & AUTO [id number] 05:23:22 Test Item Value Reference Range Interpretation Comments WHITE BLOOD CELL COUNT (BEAKER) 6.4 K/ L 3.5-10.5 (test code = 775) RED BLOOD CELL COUNT (BEAKER) 3.13 M/ L 3.93-5.22 L (test code = 761) HEMOGLOBIN (BEAKER) (test code = 10.5 GM/DL 11.2-15.7 L 410) HEMATOCRIT (BEAKER) (test code = 30.8 % 34.1-44.9 L 411) MEAN CORPUSCULAR VOLUME (BEAKER) 98.4 fL 79.4-94.8 H (test code = 753) MEAN CORPUSCULAR HEMOGLOBIN 33.5 pg 25.6-32.2 H (BEAKER) (test code = 751) MEAN CORPUSCULAR HEMOGLOBIN CONC 34.1 GM/DL 32.2-35.5 (BEAKER) (test code = 752) RED CELL DISTRIBUTION WIDTH 15.5 % 11.7-14.4 H (BEAKER) (test code = 412) PLATELET COUNT (BEAKER) (test 151 K/CU MM 150-450 code = 756) MEAN PLATELET VOLUME (BEAKER) 12.4 fL 9.4-12.3 H (test code = 754) NUCLEATED RED BLOOD CELLS 0 /100 WBC 0-0 (BEAKER) (test code = 413) NEUTROPHILS RELATIVE PERCENT 52 % (BEAKER) (test code = 429) LYMPHOCYTES RELATIVE PERCENT 28 % (BEAKER) (test code = 430) MONOCYTES RELATIVE PERCENT 12 % (BEAKER) (test code = 431) EOSINOPHILS RELATIVE PERCENT 6 % (BEAKER) (test code = 432) BASOPHILS RELATIVE PERCENT 1 % (BEAKER) (test code = 437) NEUTROPHILS ABSOLUTE COUNT 3.37 K/ L 1.56-6.13 (BEAKER) (test code = 670) LYMPHOCYTES ABSOLUTE COUNT 1.77 K/ L 1.18-3.74 (BEAKER) (test code = 414) MONOCYTES ABSOLUTE COUNT (BEAKER) 0.74 K/ L 0.24-0.36 H (test code = 415) EOSINOPHILS ABSOLUTE COUNT 0.38 K/ L 0.04-0.36 H (BEAKER) (test code = 416) BASOPHILS ABSOLUTE COUNT (BEAKER) 0.08 K/ L 0.01-0.08 (test code = 417) IMMATURE GRANULOCYTES-RELATIVE 2 % 0-1 H PERCENT (BEAKER) (test code = 2801) POCT-GLUCOSE [id number] 21:40:34 Test Item Value Reference Range Interpretation Comments POC-GLUCOSE METER 131 mg/dL 70-110 H : TESTED A [facility] ([facility]) (test code = [facility], 1537) [address]: Preventive Medicine Specialist/Techni vivek ID = [id number] for Samson Bruno POCT-GLUCOSE [id number] 18:58:44 Test Item Value Reference Range Interpretation Comments POC-GLUCOSE METER 135 mg/dL 70-110 H : [facility] (test code = [facility], 1537) [address]: Preventive Medicine Specialist/Techni vivek ID = [id number] for Sara Sinha POC-Glucose [id number] 12:55:05 Test Item Value Reference Range Interpretation Comments POC-Glucose Meter (test 108 mg/dL 70-110 : TE STED AT [facility] code = 1538) [address] [facility], 770 30: Preventive Medicine Specialist/Techni vivek ID = [id number] for Carlo Zamora Lab Interpretation (test Normal code = 92369-7) [facility] [id number] 12:55:05 Test Item Value Reference Range Interpretation Comments POC-GLUCOSE METER 108 mg/dL 70-110 : TESTED A T [facility] 6720 (BEAKER) (test code = [facility], 1538) 86[address]: Preventive Medicine Specialist/Techni vivek ID = [id number] for Sara Sinha POCT-GLUCOSE [id number] 06:51:57 Test Item Value Reference Range Interpretation Comments POC-GLUCOSE METER 90 mg/dL 70-110 : TESTED A T [facility] 6720 (BEAKER) (test code = [facility], 1538) [address]: Preventive Medicine Specialist/Techni vivek ID = [id number] for Samson Vickers BASIC METABOLIC [id number] 06:43:54 Test Item Value Reference Range Interpretation Comments SODIUM (BEAKER) 144 meq/L 136-145 (test code = 381) POTASSIUM 3.9 meq/L 3.5-5.1 (BEAKER) (test code = 379) CHLORIDE (BEAKER) 115 meq/L 98-107 H (test code = 382) CO2 (BEAKER) 23 meq/L 22-29 (test code = 355) BLOOD UREA 20 mg/dL 7-21 NITROGEN (BEAKER) (test code = 354) CREATININE 0.71 mg/dL 0.57-1.25 (BEAKER) (test code = 358) GLUCOSE RANDOM 92 mg/dL 70-105 (BEAKER) (test code = 652) CALCIUM (BEAKER) 7.7 mg/dL 8.4-10.2 L (test code = 697) EGFR (BEAKER) 87 Interpretatio n of eGFR (test code = mL/min/1.73 values Stage De scription 1092) sq m Result G1 Sunshine l or high >=90 G2 Mildly decreased 60-89 G3a Mildl y to moderately 45-5 9 G3b Moderately to s everely 30-44 G4 Severl y decreased 15-29 G5 Kidney failure <15Reported eGF R is based on the CKD-EPI 2020 equation that d oes not use a race coefficientEsti mated GFR is not as accur ate as Creatinine Sherin brina in predicting glom erular filtration rate . Estimated GFR is not appl icable for dialysis patien ts Preventive Medicine Specialist ID - MARCIA [id number] 06:41:21 Test Item Value Reference Range Interpretation Comments MAGNESIUM (BEAKER) (test code = 1.9 mg/dL 1.6-2.6 627) Preventive Medicine Specialist ID - MARCIA LCBC W/PLT COUNT & AUTO [id number] 06:16:03 Test Item Value Reference Range Interpretation Comments WHITE BLOOD CELL COUNT (BEAKER) 6.9 K/ L 3.5-10.5 (test code = 775) RED BLOOD CELL COUNT (BEAKER) 2.91 M/ L 3.93-5.22 L (test code = 761) HEMOGLOBIN (BEAKER) (test code = 9.4 GM/DL 11.2-15.7 L 410) HEMATOCRIT (BEAKER) (test code = 28.0 % 34.1-44.9 L 411) MEAN CORPUSCULAR VOLUME (BEAKER) 96.2 fL 79.4-94.8 H (test code = 753) MEAN CORPUSCULAR HEMOGLOBIN 32.3 pg 25.6-32.2 H (BEAKER) (test code = 751) MEAN CORPUSCULAR HEMOGLOBIN CONC 33.6 GM/DL 32.2-35.5 (BEAKER) (test code = 752) RED CELL DISTRIBUTION WIDTH 14.9 % 11.7-14.4 H (BEAKER) (test code = 412) PLATELET COUNT (BEAKER) (test 129 K/CU MM 150-450 L code = 756) MEAN PLATELET VOLUME (BEAKER) 11.7 fL 9.4-12.3 (test code = 754) NUCLEATED RED BLOOD CELLS 0 /100 WBC 0-0 (BEAKER) (test code = 413) NEUTROPHILS RELATIVE PERCENT 58 % (BEAKER) (test code = 429) LYMPHOCYTES RELATIVE PERCENT 24 % (BEAKER) (test code = 430) MONOCYTES RELATIVE PERCENT 12 % (BEAKER) (test code = 431) EOSINOPHILS RELATIVE PERCENT 4 % (BEAKER) (test code = 432) BASOPHILS RELATIVE PERCENT 1 % (BEAKER) (test code = 437) NEUTROPHILS ABSOLUTE COUNT 4.02 K/ L 1.56-6.13 (BEAKER) (test code = 670) LYMPHOCYTES ABSOLUTE COUNT 1.62 K/ L 1.18-3.74 (BEAKER) (test code = 414) MONOCYTES ABSOLUTE COUNT (BEAKER) 0.79 K/ L 0.24-0.36 H (test code = 415) EOSINOPHILS ABSOLUTE COUNT 0.28 K/ L 0.04-0.36 (BEAKER) (test code = 416) BASOPHILS ABSOLUTE COUNT (BEAKER) 0.05 K/ L 0.01-0.08 (test code = 417) IMMATURE GRANULOCYTES-RELATIVE 2 % 0-1 H PERCENT (BEAKER) (test code = 2801) POCT-GLUCOSE [id number] 21:45:02 Test Item Value Reference Range Interpretation Comments POC-GLUCOSE METER 111 mg/dL 70-110 H : TESTED A T [facility] 6720 (BEAKER) (test code = [facility], [facility]) [address]: Preventive Medicine Specialist/Techni vivek ID = [id number] for Samson Bruno POCT-GLUCOSE [id number] 11:58:22 Test Item Value Reference Range Interpretation Comments POC-GLUCOSE METER 118 mg/dL 70-110 H : TESTED A T [facility] 6720 (BEAKER) (test code = [facility], [facility]8) [address]: Preventive Medicine Specialist/Techni vivek ID = [id number] for Vu yk, Karla POCT-GLUCOSE [id number] 08:14:23 Test Item Value Reference Range Interpretation Comments POC-GLUCOSE METER 103 mg/dL 70-110 : TESTED A T [facility] 67[address] (BEAKER) (test code = [facility], 1538) [address]: Preventive Medicine Specialist/Techni vivek ID = [id number] for Vu yk, Karla POCT-GLUCOSE [id number] 07:00:10 Test Item Value Reference Range Interpretation Comments POC-GLUCOSE METER 79 mg/dL 70-110 : TESTED A T [facility] 67[address] (BEAKER) (test code = [facility], [facility]8) [address]: Preventive Medicine Specialist/Techni vivek ID = [id number] for Bisi Weber BASIC METABOLIC [id number] 06:50:32 Test Item Value Reference Range Interpretation Comments SODIUM (BEAKER) 142 meq/L 136-145 (test code = 381) POTASSIUM 3.2 meq/L 3.5-5.1 L (BEAKER) (test code = 379) CHLORIDE (BEAKER) 115 meq/L 98-107 H (test code = 382) CO2 (BEAKER) 22 meq/L 22-29 (test code = 355) BLOOD UREA 41 mg/dL 7-21 H NITROGEN (BEAKER) (test code = 354) CREATININE 0.76 mg/dL 0.57-1.25 (BEAKER) (test code = 358) GLUCOSE RANDOM 90 mg/dL 70-105 (BEAKER) (test code = 652) CALCIUM (BEAKER) 7.3 mg/dL 8.4-10.2 L (test code = 697) EGFR (BEAKER) 80 Interpretatio n of eGFR (test code = mL/min/1.73 values Stage De scription 1092) sq m Result G1 Sunshine l or high >=90 G2 Mildly decreased 60-89 G3a Mildl y to moderately 45-5 9 G3b Moderately to s everely 30-44 G4 Severl y decreased 15-29 G5 Kidney failure <15Reported eGF R is based on the CKD-EPI 202 equation that d oes not use a race coefficientEsti mated GFR is not as accur ate as Creatinine Sherin gonsalves in predicting glom erular filtration rate . Estimated GFR is not appl icable for dialysis patien ts Preventive Medicine Specialist ID - MARCIA [id number] 06:33:50 Test Item Value Reference Range Interpretation Comments MAGNESIUM (BEAKER) (test code = 1.6 mg/dL 1.6-2.6 627) Preventive Medicine Specialist ID - MARCIA LCBC W/PLT COUNT & AUTO [id number] 04:53:57 Test Item Value Reference Range Interpretation Comments WHITE BLOOD CELL COUNT (BEAKER) 7.9 K/ L 3.5-10.5 (test code = 775) RED BLOOD CELL COUNT (BEAKER) 2.71 M/ L 3.93-5.22 L (test code = 761) HEMOGLOBIN (BEAKER) (test code = 8.5 GM/DL 11.2-15.7 L 410) HEMATOCRIT (BEAKER) (test code = 25.7 % 34.1-44.9 L 411) MEAN CORPUSCULAR VOLUME (BEAKER) 94.8 fL 79.4-94.8 (test code = 753) MEAN CORPUSCULAR HEMOGLOBIN 31.4 pg 25.6-32.2 (BEAKER) (test code = 751) MEAN CORPUSCULAR HEMOGLOBIN CONC 33.1 GM/DL 32.2-35.5 (BEAKER) (test code = 752) RED CELL DISTRIBUTION WIDTH 14.9 % 11.7-14.4 H (BEAKER) (test code = 412) PLATELET COUNT (BEAKER) (test 117 K/CU MM 150-450 L code = 756) MEAN PLATELET VOLUME (BEAKER) 11.8 fL 9.4-12.3 (test code = 754) NUCLEATED RED BLOOD CELLS 0 /100 WBC 0-0 (BEAKER) (test code = 413) NEUTROPHILS RELATIVE PERCENT 65 % (BEAKER) (test code = 429) LYMPHOCYTES RELATIVE PERCENT 24 % (BEAKER) (test code = 430) MONOCYTES RELATIVE PERCENT 8 % (BEAKER) (test code = 431) EOSINOPHILS RELATIVE PERCENT 2 % (BEAKER) (test code = 432) BASOPHILS RELATIVE PERCENT 1 % (BEAKER) (test code = 437) NEUTROPHILS ABSOLUTE COUNT 5.15 K/ L 1.56-6.13 (BEAKER) (test code = 670) LYMPHOCYTES ABSOLUTE COUNT 1.86 K/ L 1.18-3.74 (BEAKER) (test code = 414) MONOCYTES ABSOLUTE COUNT (BEAKER) 0.59 K/ L 0.24-0.36 H (test code = 415) EOSINOPHILS ABSOLUTE COUNT 0.12 K/ L 0.04-0.36 (BEAKER) (test code = 416) BASOPHILS ABSOLUTE COUNT (BEAKER) 0.04 K/ L 0.01-0.08 (test code = 417) IMMATURE GRANULOCYTES-RELATIVE 2 % 0-1 H PERCENT (BEAKER) (test code = 2801) Prepare Leuko-Red [id number] 23:54:00 Test Item Value Reference Range Interpretation Comments CROSSMATCH (test code = 2264) COMPATIBLE Unit ABO (test code = A Pos 3611249) UNIT NUMBER (test code = [id number] 934-0) Status (test code = 1366107) TX_TIMEINCHART Blood Bank Product (test code RED BLOOD CELLS = 2263) PRODUCT CODE (test code = D3814Y78 933-2) [facility] [id number] 23:54:00 Test Item Value Reference Range Interpretation Comments CROSSMATCH (test code = 2264) COMPATIBLE Unit ABO (test code = A Pos 5659949) UNIT NUMBER (test code = [id number] 934-0) Status (test code = 5661218) TX_TIMEINCHART Blood Bank Product (test code RED BLOOD CELLS = 2263) PRODUCT CODE (test code = I4612C41 933-2) [facility] [id number] 22:15:00 Test Item Value Reference Range Interpretation Comments POC-GLUCOSE METER 86 mg/dL 70-110 : TESTED A T [facility] 6720 (BEAKER) (test code = [facility], 153) 36618: Preventive Medicine Specialist/Techni vivek ID = [id number] for Bisi Weber POCT-GLUCOSE [id number] 18:42:25 Test Item Value Reference Range Interpretation Comments POC-GLUCOSE METER 119 mg/dL 70-110 H : TESTED A T [facility] 6720 (BEAKER) (test code = [facility], 1538) 35220: Preventive Medicine Specialist/Techni vivek ID = [id number] for Kaitlin mainz, Luigi POCT-GLUCOSE [id number] 13:30:28 Test Item Value Reference Range Interpretation Comments POC-GLUCOSE METER 144 mg/dL 70-110 H : TESTED A T [facility] 6720 (BEAKER) (test code = [facility], 1538) 70120: Preventive Medicine Specialist/Techni vivek ID = [id number] for MATAY (V), ANITHA HEMOGLOBIN AND [id number] 13:29:31 Test Item Value Reference Range Interpretation Comments HEMOGLOBIN (BEAKER) (test code = 9.3 GM/DL 11.2-15.7 L 410) HEMATOCRIT (BEAKER) (test code = 27.6 % 34.1-44.9 L 411) Preventive Medicine Specialist ID - [id number] ID - [id number]-GLUCOSE [id number] 12:55:59 Test Item Value Reference Range Interpretation Comments POC-GLUCOSE METER 111 mg/dL 70-110 H : TESTED A T [facility] 6720 (BEAKER) (test code = ALAN [place], 1538) [id number]: Preventive Medicine Specialist/Techni vivek ID = [id number] for Luigi Jordan BASIC METABOLIC [id number] 04:40:27 Test Item Value Reference Range Interpretation Comments SODIUM (BEAKER) 143 meq/L 136-145 (test code = 381) POTASSIUM 3.7 meq/L 3.5-5.1 Specimen slight ly (BEAKER) (test hemolyzed code = 379) CHLORIDE (BEAKER) 115 meq/L 98-107 H (test code = 382) CO2 (BEAKER) 21 meq/L 22-29 L (test code = 355) BLOOD UREA 75 mg/dL 7-21 H NITROGEN (BEAKER) (test code = 354) CREATININE 1.00 mg/dL 0.57-1.25 Specimen slight ly (BEAKER) (test hemolyzed code = 358) GLUCOSE RANDOM 126 mg/dL 70-105 H (BEAKER) (test code = 652) CALCIUM (BEAKER) 7.1 mg/dL 8.4-10.2 L (test code = 697) EGFR (BEAKER) 58 Interpretatio n of eGFR (test code = mL/min/1.73 values Stage De scription 1092) sq m Result G1 Norm al or high >=90 G2 Mildly decreased 60-89 G3a Mildl y to moderately 45-5 9 G3b Moderately to s everely 30-44 G4 Severl y decreased 15-29 G5 Kidne y failure <15Reported eGF R is based on the CKD-EPI 2020 equation that d oes not use a race coefficientEsti mated GFR is not as accur ate as Creatinine Sherin brina in predicting glom erular filtration rate . Estimated GFR is not appl icable for dialysis patien ts Preventive Medicine Specialist ID - PIAYA LPOCT-GLUCOSE [id number] 04:31:09 Test Item Value Reference Range Interpretation Comments POC-GLUCOSE METER 128 mg/dL 70-110 H : TESTED A T [facility] 6720 (BEAKER) (test code = [place]AN [place], 1538) [address]: Preventive Medicine Specialist/Techni vivek ID = [id number] for ANIRUDH MELGOZAJIMENEZANTONYBurke [id number] 04:22:54 Test Item Value Reference Range Interpretation Comments MAGNESIUM (BEAKER) 2.5 mg/dL 1.6-2.6 Specimen slightly (test code = 627) hemolyzed Preventive Medicine Specialist SHANNON - MARCIA LCBC W/PLT COUNT & AUTO [id number] 03:52:56 Test Item Value Reference Range Interpretation Comments WHITE BLOOD CELL COUNT (BEAKER) 9.0 K/ L 3.5-10.5 (test code = 775) RED BLOOD CELL COUNT (BEAKER) 2.88 M/ L 3.93-5.22 L (test code = 761) HEMOGLOBIN (BEAKER) (test code = 9.2 GM/DL 11.2-15.7 L 410) HEMATOCRIT (BEAKER) (test code = 27.2 % 34.1-44.9 L 411) MEAN CORPUSCULAR VOLUME (BEAKER) 94.4 fL 79.4-94.8 (test code = 753) MEAN CORPUSCULAR HEMOGLOBIN 31.9 pg 25.6-32.2 (BEAKER) (test code = 751) MEAN CORPUSCULAR HEMOGLOBIN CONC 33.8 GM/DL 32.2-35.5 (BEAKER) (test code = 752) RED CELL DISTRIBUTION WIDTH 14.2 % 11.7-14.4 (BEAKER) (test code = 412) PLATELET COUNT (BEAKER) (test 118 K/CU MM 150-450 L code = 756) MEAN PLATELET VOLUME (BEAKER) 12.2 fL 9.4-12.3 (test code = 754) NUCLEATED RED BLOOD CELLS 0 /100 WBC 0-0 (BEAKER) (test code = 413) NEUTROPHILS RELATIVE PERCENT 67 % (BEAKER) (test code = 429) LYMPHOCYTES RELATIVE PERCENT 21 % (BEAKER) (test code = 430) MONOCYTES RELATIVE PERCENT 10 % (BEAKER) (test code = 431) EOSINOPHILS RELATIVE PERCENT 0 % (BEAKER) (test code = 432) BASOPHILS RELATIVE PERCENT 0 % (BEAKER) (test code = 437) NEUTROPHILS ABSOLUTE COUNT 6.00 K/ L 1.56-6.13 (BEAKER) (test code = 670) LYMPHOCYTES ABSOLUTE COUNT 1.93 K/ L 1.18-3.74 (BEAKER) (test code = 414) MONOCYTES ABSOLUTE COUNT (BEAKER) 0.92 K/ L 0.24-0.36 H (test code = 415) EOSINOPHILS ABSOLUTE COUNT 0.02 K/ L 0.04-0.36 L (BEAKER) (test code = 416) BASOPHILS ABSOLUTE COUNT (BEAKER) 0.03 K/ L 0.01-0.08 (test code = 417) IMMATURE GRANULOCYTES-RELATIVE 1 % 0-1 PERCENT (BEAKER) (test code = 2801) LACTIC ACID, [id number] 03:50:46 Test Item Value Reference Range Interpretation Comments LACTATE BLOOD VENOUS 0.92 mmol/L 0.50-2.20 Specime n slightly (2) (BEAKER) (test hemolyzed code = 2872) Preventive Medicine Specialist ID - MARCIA LHEMOGLOBIN AND [id number] 22:09:12 Test Item Value Reference Range Interpretation Comments HEMOGLOBIN (BEAKER) (test code = 7.0 GM/DL 11.2-15.7 L 410) HEMATOCRIT (BEAKER) (test code = 20.1 % 34.1-44.9 L 411) Preventive Medicine Specialist ID - 6000Operator ID - 6000POCT-GLUCOSE [id number] 17:54:00 Test Item Value Reference Range Interpretation Comments POC-GLUCOSE METER 206 mg/dL 70-110 H : TESTED A T [facility] 6720 (BEAKER) (test code = [facility] [employer] [facility], 1538) [address]: Preventive Medicine Specialist/Techni vivek ID = [id number] for Vu yk, Karla LACTIC ACID, [id number] 16:43:01 Test Item Value Reference Range Interpretation Comments LACTATE BLOOD VENOUS 3.27 mmol/L 0.50-2.20 H Specime n slightly (2) (BEAKER) (test hemolyzed code = 2872) Preventive Medicine Specialist ID - KELSI MPOCT-GLUCOSE [id number] 15:05:39 Test Item Value Reference Range Interpretation Comments POC-GLUCOSE METER 188 mg/dL 70-110 H : TESTED A T [facility] 6720 (BEAKER) (test code = [facility] [employer] [facility], 1538) [address]: Preventive Medicine Specialist/Techni vivek ID = [id number] for Vu yk, Karla Sodium, random [id number] 14:21:12 Test Item Value Reference Range Interpretation Comments Sodium Urine (test <20 meq/L code = 2955-3) KEVIN (test code = Reference Range: No EKVIN) NormalsOperator ID - KELSI MOperator ID - KELSI [facility] [id number] 14:21:12 Test Item Value Reference Range Interpretation Comments Sodium Urine (test <20 meq/L code = 2955-3) KEVIN (test code = Reference Range: No KEVIN) NormalsOperator ID - KELSI MOperator ID - KELSI [facility], RANDOM [id number] 14:21:12 Test Item Value Reference Range Interpretation Comments SODIUM URINE (BEAKER) (test code = < meq/L 243) Reference Range: No NormalsOperator ID - KELSI MOperator ID - KELSI MCreatinine, random [id number] 14:04:16 Test Item Value Reference Range Interpretation Comments Creatinine, Ur 53.4 mg/dL (test code = 2161-8) KEVIN (test code = Reference Range: No KEVIN) NormalsOperator ID - KELSI [facility] [id number] 14:04:16 Test Item Value Reference Range Interpretation Comments Creatinine, Ur 53.4 mg/dL (test code = 2161-8) KEVIN (test code = Reference Range: No KEVIN) NormalsOperator ID - KELSI [facility] CenterCREATININE, RANDOM [id number] 14:04:16 Test Item Value Reference Range Interpretation Comments CREATININE URINE (BEAKER) (test 53.4 mg/dL code = 375) Reference Range: No NormalsOperator ID - KELSI MVITAMIN [id number] 13:58:11 Test Item Value Reference Range Interpretation Comments VITAMIN B12 (BEAKER) (test code = 330 pg/mL 213-816 774) Preventive Medicine Specialist ID - KELSI [id number] 13:58:11 Test Item Value Reference Range Interpretation Comments FERRITIN (BEAKER) (test code = 53.34 ng/mL 5.00-275.00 361) Preventive Medicine Specialist ID - KELSI MCOMPREHENSIVE METABOLIC [id number] 13:45:19 Test Item Value Reference Range Interpretation Comments TOTAL PROTEIN 4.6 gm/dL 6.0-8.3 L (BEAKER) (test code = 770) ALBUMIN (BEAKER) 2.7 g/dL 3.5-5.0 L (test code = 1145) ALKALINE 47 U/L 40-150 PHOSPHATASE (BEAKER) (test code = 346) BILIRUBIN TOTAL 0.2 mg/dL 0.2-1.2 (BEAKER) (test code = 377) SODIUM (BEAKER) 142 meq/L 136-145 (test code = 381) POTASSIUM (BEAKER) 4.7 meq/L 3.5-5.1 (test code = 379) CHLORIDE (BEAKER) 118 meq/L 98-107 H (test code = 382) CO2 (BEAKER) (test 13 meq/L 22-29 L code = 355) BLOOD UREA 103 mg/dL 7-21 H NITROGEN (BEAKER) (test code = 354) CREATININE 1.47 mg/dL 0.57-1.25 H (BEAKER) (test code = 358) GLUCOSE RANDOM 222 mg/dL 70-105 H (BEAKER) (test code = 652) CALCIUM (BEAKER) 7.4 mg/dL 8.4-10.2 L (test code = 697) AST (SGOT) 12 U/L 5-34 (BEAKER) (test code = 353) ALT (SGPT) 11 U/L 6-55 (BEAKER) (test code = 347) EGFR (BEAKER) 36 Interpretatio n of eGFR (test code = 1092) mL/min/1.[address] age Description sq m Result G1 Sunshine l or high >=90 G2 Mildly decreased 60-89 G3a Mildl y to moderately 45-5 9 G3b Moderately to s everely 30-44 G4 Severl y decreased 15-29 G5 Kidney failure <15Reported eGF R is based on the CKD-EPI 2020 equation that d oes not use a race coefficientEsti mated GFR is not as accur ate as Creatinine Sherin gonsalves in predicting glom erular filtration rate . Estimated GFR is not appl icable for dialysis patien ts Preventive Medicine Specialist ID - KELSI [id number] 13:33:10 Test Item Value Reference Range Interpretation Comments MAGNESIUM (BEAKER) (test code = 1.1 mg/dL 1.6-2.6 L 627) Preventive Medicine Specialist ID Fred DOLAN CATRACHITA, TIBC, % SAT. (WITHOUT FERRITIN)2022-04-02 13:31:27 Test Item Value Reference Range Interpretation Comments IRON (BEAKER) (test code = 547) 88.0 ug/dL 40.0-160.0 TOTAL IRON BINDING CAPACITY 274 ug/dL 250-450 (BEAKER) (test code = 769) IRON % SATURATION (2) (BEAKER) 32 % 20-55 (test code = 2590) Preventive Medicine Specialist ID - KELSI MPROTHROMBIN TIME/[id number] 13:18:25 Test Item Value Reference Range Interpretation Comments PROTIME (BEAKER) 17.2 seconds 11.9-14.2 H (test code = 759) INR (BEAKER) (test 1.44 See_Comment [Automat ed message] code = 370) The system V[employer] generated this result transmitted ref erence range: <=5.90. The reference range was not used to int erpret this result as normal/abnormal . RECOMMENDED COUMADIN/WARFARIN INR THERAPY RANGESSTANDARD DOSE: 2.0 - 3.0 Includes: PROPHYLAXIS for venous thrombosis, systemic embolization; TREATMENT for venous thrombosis and/or pulmonary embolus.HIGH RISK: Target INR is 2.5-3.5 for patients with mechanical heart valves.[id number] 13:18:25 Test Item Value Reference Range Interpretation Comments FIBRINOGEN LEVEL (BEAKER) (test 275 mg/dl 225-434 code = 658) LACTIC ACID, [id number] 13:18:04 Test Item Value Reference Range Interpretation Comments LACTATE BLOOD VENOUS (2) (BEAKER) 3.88 mmol/L 0.50-2.20 H (test code = 2872) Preventive Medicine Specialist ID - KELSI MUrinalysis w/Microscopic + Reflex to [id number] 13:14:07 Test Item Value Reference Range Interpretation Comments Color, UA (test code April = 5778-6) Clarity, UA (test Cloudy code = 5767-9) Specific [place], UA 1.022 1.001-1.035 (test code = 5811-5) pH, UA (test code = 5.5 5.0-8.0 5803-2) Protein, UA (test 50 mg/dL Negative A code = 87122-1) Glucose, UA (test Negative Negative code = 365) Ketones, UA (test Negative Negative code = 2514-8) Bilirubin, UA (test Negative Negative code = 86396-9) Blood, UA (test code Large Negative A = 24970-5) Nitrite, UA (test Negative Negative code = 5802-4) Leukocytes, UA (test Large Negative A code = 5799-2) Urobilinogen, UA 0.2 mg/dL 0.2-1.0 (test code = 18045-5) RBC, UA (test code = 369 See_Comment [Autom ated 17039-4) message] The system which generated this result transmit arash reference range : /HPF. The reference range was not used to interpret this result as normal/abnormal . WBC, UA (test code = 897 See_Comment [Autom ated 5821-4) message] The system which generated this result transmit arash reference range : /HPF. The reference range was not used to interpret this result as normal/abnormal . Bacteria, UA (test Many code = 14233-7) Crystals, Urine (test None Seen code = 69596-4) Specimen Source (test code = 2795) KEVIN (test code = KEVIN) Preventive Medicine Specialist ID - [auto]Preventive Medicine Specialist ID - tech Lab Interpretation Abnormal (test code = 79107-1) [facility] Reflex to Culture 2022-04-02 13:14:07 Test Item Value Reference Range Interpretation Comments Color, UA (test code April = 5778-6) Clarity, UA (test Cloudy code = 5767-9) Specific [place], UA 1.022 1.001-1.035 (test code = 5811-5) pH, UA (test code = 5.5 5.0-8.0 5803-2) Protein, UA (test 50 mg/dL Negative A code = 19335-4) Glucose, UA (test Negative Negative code = 365) Ketones, UA (test Negative Negative code = 2514-8) Bilirubin, UA (test Negative Negative code = 13585-7) Blood, UA (test code Large Negative A = 51122-1) Nitrite, UA (test Negative Negative code = 5802-4) Leukocytes, UA (test Large Negative A code = 5799-2) Urobilinogen, UA 0.2 mg/dL 0.2-1.0 (test code = 59027-2) RBC, UA (test code = 369 See_Comment [Autom ated 85653-5) message] The system which generated this result transmit arash reference range : /HPF. The reference range was not used to interpret this result as normal/abnormal . WBC, UA (test code = 897 See_Comment [Autom ated 5821-4) message] The system which generated this result transmit arash reference range : /HPF. The reference range was not used to interpret this result as normal/abnormal . Bacteria, UA (test Many code = 43328-9) Crystals, Urine (test None Seen code = 84650-1) Specimen Source (test code = 2795) KEVIN (test code = KEVIN) Preventive Medicine Specialist ID - [auto]Preventive Medicine Specialist ID - tech Lab Interpretation Abnormal (test code = 92740-3) [facility]FLEX URINE [id number] 13:14:07 Test Item Value Reference Range Interpretation Comments COLOR (BEAKER) (test code = 470) April CLARITY (BEAKER) (test code = 469) Cloudy SPECIFIC GRAVITY UA (BEAKER) (test 1.022 1.001-1.035 code = 468) PH UA (BEAKER) (test code = 467) 5.5 5.0-8.0 PROTEIN UA (BEAKER) (test code = 50 mg/dL Negative A 464) GLUCOSE UA (BEAKER) (test code = Negative Negative 365) KETONES UA (BEAKER) (test code = Negative Negative 371) BILIRUBIN UA (BEAKER) (test code = Negative Negative 462) BLOOD UA (BEAKER) (test code = 461) Large Negative A NITRITE UA (BEAKER) (test code = Negative Negative 465) LEUKOCYTE ESTERASE UA (BEAKER) Large Negative A (test code = 466) UROBILINOGEN UA (BEAKER) (test code 0.2 mg/dL 0.2-1.0 = 463) RBC UA (BEAKER) (test code = 519) 369 /HPF WBC UA (BEAKER) (test code = 520) 897 /HPF BACTERIA (BEAKER) (test code = 517) Many CRYSTALS, URINE (BEAKER) (test code None Seen = 1521) SOURCE(BEAKER) (test code = 2795) Preventive Medicine Specialist ID - [auto]Preventive Medicine Specialist ID - techCBC W/PLT COUNT & AUTO DIFFERENTIAL 2022-04-02 13:12:12 Test Item Value Reference Range Interpretation Comments WHITE BLOOD CELL COUNT (BEAKER) 16.2 K/ L 3.5-10.5 H (test code = 775) RED BLOOD CELL COUNT (BEAKER) 2.90 M/ L 3.93-5.22 L (test code = 761) HEMOGLOBIN (BEAKER) (test code = 9.3 GM/DL 11.2-15.7 L 410) HEMATOCRIT (BEAKER) (test code = 28.6 % 34.1-44.9 L 411) MEAN CORPUSCULAR VOLUME (BEAKER) 98.6 fL 79.4-94.8 H (test code = 753) MEAN CORPUSCULAR HEMOGLOBIN 32.1 pg 25.6-32.2 (BEAKER) (test code = 751) MEAN CORPUSCULAR HEMOGLOBIN CONC 32.5 GM/DL 32.2-35.5 (BEAKER) (test code = 752) RED CELL DISTRIBUTION WIDTH 14.6 % 11.7-14.4 H (BEAKER) (test code = 412) PLATELET COUNT (BEAKER) (test 171 K/CU MM 150-450 code = 756) MEAN PLATELET VOLUME (BEAKER) 11.8 fL 9.4-12.3 (test code = 754) NUCLEATED RED BLOOD CELLS 0 /100 WBC 0-0 (BEAKER) (test code = 413) NEUTROPHILS RELATIVE PERCENT 88 % (BEAKER) (test code = 429) LYMPHOCYTES RELATIVE PERCENT 6 % (BEAKER) (test code = 430) MONOCYTES RELATIVE PERCENT 6 % (BEAKER) (test code = 431) EOSINOPHILS RELATIVE PERCENT 0 % (BEAKER) (test code = 432) BASOPHILS RELATIVE PERCENT 0 % (BEAKER) (test code = 437) NEUTROPHILS ABSOLUTE COUNT 14.25 K/ L 1.56-6.13 H (BEAKER) (test code = 670) LYMPHOCYTES ABSOLUTE COUNT 0.89 K/ L 1.18-3.74 L (BEAKER) (test code = 414) MONOCYTES ABSOLUTE COUNT (BEAKER) 0.90 K/ L 0.24-0.36 H (test code = 415) EOSINOPHILS ABSOLUTE COUNT 0.00 K/ L 0.04-0.36 L (BEAKER) (test code = 416) BASOPHILS ABSOLUTE COUNT (BEAKER) 0.04 K/ L 0.01-0.08 (test code = 417) IMMATURE GRANULOCYTES-RELATIVE 1 % 0-1 PERCENT (BEAKER) (test code = 2801) HEMOGLOBIN AND [id number] 13:10:04 Test Item Value Reference Range Interpretation Comments HEMOGLOBIN (BEAKER) (test code = 9.3 GM/DL 11.2-15.7 L 410) HEMATOCRIT (BEAKER) (test code = 28.6 % 34.1-44.9 L 411) BLOOD GAS, [id number] 12:59:17 Test Item Value Reference Range Interpretation Comments PH VENOUS (BEAKER) (test code = 7.23 7.32-7.42 L 701) PCO2 VENOUS (BEAKER) (test code 35 mm Hg 41-51 L = 755) PO2 VENOUS (BEAKER) (test code = 32 mm Hg 25-40 702) O2 SATURATION VENOUS (BEAKER) 51.1 % 40.0-70.0 (test code = 703) HCO3 VENOUS (BEAKER) (test code 15 mmol/L 21-29 L = 705) BASE EXCESS VENOUS (BEAKER) -12.1 mmol/L -2.0-3.0 L (test code = 704) PATIENT TEMPERATURE (BEAKER) 37.0 (test code = 1818) FIO2 (BEAKER) (test code = 1819) 21.0
[2022-05-21] MEDS ORDERED: FENTANYL CITR 100 MCG/2 ML ONE (12:56)
--- NOTE | 2022-05-21 13:40 | RAD REPORT ---
EXAM DESCRIPTION: CT - CTHCSPWOC - 05/21/2022 1:11 pm CLINICAL HISTORY: fall, facial/head injury COMPARISON: Facial Bones W/ Mpr dated 05/21/2022 TECHNIQUE: Axial 5 mm thick images of the head were obtained. Axial 2 mm thick images of the cervic al spine were obtained with sagittal and coronal reconstruction images generated and reviewed. All CT scans are performed using dose optimization technique as appropriate and may include automated exposure control or mA/KV adjustment according to patient size. FINDINGS: No intracranial hemorrhage, mass, edema or acute intracranial finding. No suspicion for ac aaron infarction. No cortical edema or sulcal effacement. Moderate severity atrophy is present with mod erate chronic ischemic change. Ventricles are in proportion to any volume loss. Dense arterial tree c alcifications are present. Mastoid air cells are clear. Facial bones, orbits and sinuses are separate ly detailed. Cervical body height and alignment are normal. C3-4 disc space narrowing. Significant C5-6, C6-7 and C7-T1 disc space narrowing seen with endplate spurring. Facet degenerative changes comparatively mild . Bony foraminal encroachment changes are present. Degenerative changes are present at the dens C1 le wagner. No fracture or acute bony abnormality. Central canal detail is inherently limited. No paraspinal mass or hematoma. IMPRESSION: Negative CT head examination for acute or significant finding. Orbits, sinuses and facia l bones are separately detailed. Negative CT cervical spine examination for acute finding.
--- NOTE | 2022-05-21 13:45 | RAD REPORT ---
EXAM DESCRIPTION: CT - Facial Bones W/ Mpr - 05/21/2022 1:11 pm CLINICAL HISTORY: Fall, blunt force trauma to the face COMPARISON: None. TECHNIQUE: Axial 2 millimeter thick images of the facial bones were obtained with sagittal and coron al reconstruction imaging. All CT scans are performed using dose optimization technique as appropriate and may include automated exposure control or mA/KV adjustment according to patient size. FINDINGS: Nasal bone fractures are present with a slight left angulation of the fracture fragments. Fracture of the nasal septum at the junction with the nasal bone is likely present. There is no abnor mal angulation. Soft tissue swelling is present around the nasal bones and extending into the anterio r aspect of the nares. No other facial bone fractures seen. Condyles of the mandible are normally positioned. Mandible is in tact. No globe or orbital content abnormality. Paranasal sinuses are clear of any significant disease. IMPRESSION: Nasal bone fractures with left angulation.
--- NOTE | 2022-05-21 13:59 | RAD REPORT ---
EXAM DESCRIPTION: RAD - Hand Left 3 View - 05/21/2022 1:32 pm CLINICAL HISTORY: PAIN, fall COMPARISON: None. FINDINGS: No fracture, dislocation or periosteal reaction noted. No foreign body or other soft tissu e abnormality. IP joint degenerative changes are present. Pulse oximeter obscures the tip of the four th digit. IV tubing is present in the dorsum of the wrist. IMPRESSION: Negative left hand examination for fracture or acute finding.
--- NOTE | 2022-05-21 14:06 | ER ---
Nurse's Notes [facility] Name: Deepika Mobley Age: 77 yrs Sex: Female : 1945 Arrival Date: 05/21/2022 Time: 12:41 Bed 8 Private MD: Diagnosis: Fracture of nasal bones, initial encounter for closed fracture;Unspecified injury of head, initial encounter Presentation: 05/21 12:40 Chief complaint: EMS states: toned out to [facility] for a fall. Stated PT fell face tp1 first from wheel chair. fall was witnessed by staff who denied LOC. EMS denied use of blood thinners. reports PT is A/O x1, pt knows only name, [facility] staff reports this is PT baseline. reports pt is bleeding from bridge of nose, pain in bilateral hands. [facility] staff wrapped right lower arm with coband prior to EMS arrival. BP 151/64, HR 106, O2 96%. 12:40 Coronavirus screen: Vaccine status: Patient reports being unvaccinated. Ebola Screen: tp1 Patient negative for fever greater than or equal to 101.5 degrees Fahrenheit, and additional compatible Ebola Virus Disease symptoms Patient denies exposure to infectious person. Patient denies travel to an Ebola-affected area in the 21 days before illness onset. Initial Sepsis Screen: Does the patient meet any 2 criteria? HR > 90 bpm. No. Patient's initial sepsis screen is negative. Does the patient have a suspected source of infection? No. Patient's initial sepsis screen is negative. Risk Assessment: Do you want to hurt yourself or someone else? Patient reports no desire to harm self or others. Onset of symptoms was May 21, 2022. 12:40 Method Of Arrival: EMS: [facility] tp1 12:40 Acuity: LEWIS 3 tp1 12:40 Care prior to arrival: skin tear to right wrist wrapped with gauze and coband IV tp1 initiated. 20 GA, in the left wrist. 14:42 Mechanism of Injury: Fall out of chair. Transition of care: patient was received from [facility] another setting of care (long-term care facility), [facility]. Triage Assessment: 12:40 General: Appears in no apparent distress. uncomfortable, Behavior is cooperative, tp1 fussy. Pain: Complains of pain in palmar aspect of right wrist, left hand, nose Pain began suddenly, Noted to be grimacing, guarding, moaning. EENT: Nares are clear bilaterally controlled bleeding noted to bridge of nose . Neuro: Level of Consciousness is awake, alert, obeys commands, Oriented to person. Cardiovascular: Patient's skin is warm and dry. Respiratory: Airway is patent Respiratory effort is even, unlabored. GI: Abdomen is flat, non-distended. : No signs and/or symptoms were reported regarding the genitourinary system. Derm: Bruising that is dark purple, on left hand. Musculoskeletal: bilateral legs contracted. Injury Description: Laceration sustained to nose is 0.5 to 2.5 cm long, mild bleeding noted skin tear noted to the right wrist. Trauma Activation: Physician: ED Physician; Name: gissell; Notified At: 12:40; Arrived At: Physician: General Surgeon; Name: ; Notified At: 12:40; Arrived At: Physician: Radiology; Name: ; Notified At: 12:40; Arrived At: Physician: Respiratory; Name: ; Notified At: 12:40; Arrived At: Physician: Lab; Name: ; Notified At: 12:40; Arrived At: Historical: - Allergies: 13:10 No Known Allergies; tp1 - PMHx: 13:10 CVA; Dementia; Diabetes - IDDM; Hypertension; Hypothyroidism; tp1 - Immunization history:: Client reports having NOT received the Covid vaccine. - Social history:: Smoking status: unknown. - Immunization history: Last tetanus immunization: unknown. Screenin:21 Abuse screen: Denies threats or abuse. Denies injuries from another. Nutritional tp1 screening: No deficits noted. Tuberculosis screening: No symptoms or risk factors identified. Fall Risk Fall in past 12 months (25 points). Secondary diagnosis (15 points) dementia, IV access (20 points). Ambulatory Aid- None/Bed Rest/Nurse Assist (0 pts). Gait- Impaired (20 pts.). Mental Status- Overestimates/Forgets Limitations (15 pts.). Total Juarez Fall Scale indicates High Risk Score (45 or more points). Fall prevention measures have been instituted. Side Rails Up X 2 Placed Close to Nursing Station Frequent Obs/Assessments Occuring As available patient and family educated on Fall Prevention Program and Strategies. Primary Survey: 12:45 NO uncontrolled hemorrhage observed. A: The client is awake and alert. The airway is vg1 patent. Breathing/Chest: Spontaneous respiratory effort, equal unlabored respirations, breath sounds clear bilaterally, regular pattern, symmetrical chest rise and fall. Respiratory effort: spontaneous. Circulation: No external hemorrhage present. Regular and strong central pulse, skin warm/dry/normal color. Skin color: pink. Disability Client is alert. Exposure/Environment: All clothing and personal items were removed. Forensic evidence collection is not deemed to be indicated at this time. Items placed in patient belonging bag. There is no evidence of uncontrolled external bleeding. Obvious injury(ies) are noted at this time: bridge of nose appears to be swollen and laceration noted to bridge of nose as well. Bleeding controlled. Pt appears to also have a skin tear to the Right wrist, bleeding controlled. 13:15 Reassessment Alertness and Airway: Awake and alert. The airway is patent. Airway Patent vg1 Breathing: Spontaneous respiratory effort, equal unlabored respirations, breath sounds clear bilaterally, regular pattern with symmetrical chest rise and fall. Respiratory effort Spontaneous Circulation: No external hemorrhage noted. Regular and strong central pulse, skin warm/dry/normal color. Color [place]. Secondary Survey: 12:45 HEENT: Head No injury/deformity Face No injury/deformity Eyes: No injury or deformity vg1 noted. Ears: clear Nose: bleeding noted to bilateral nares. deformity noted bridge of nose. Gastrointestinal: No deficits noted. Abdomen is soft. : No signs and/or symptoms were reported regarding the genitourinary system. Musculoskeletal: Swelling present in nose. Injury Description:. 12:45 Injury Description: Skin tears sustained to right wrist. vg1 Assessment: 12:40 Reassessment: see triage notes. tp1 12:58 Reassessment: wound care provided. laceration to nose cleaned with saline, gauze and tp1 band aid applied. gauze and coband applied to skin tear on right wrist. 13:01 Reassessment: escorted to CT via stretcher by [facility]. tp1 13:56 Reassessment: Patient appears in no apparent distress at this time. Patient and/or tp1 family updated on plan of care and expected duration. Pain level reassessed. Patient is alert, oriented x 3, equal unlabored respirations, skin warm/dry/pink. resting quietly in bed with eyes closed. 14:28 Reassessment: report given to nikki Gonzalez RN at [facility]. ld1 14:31 Reassessment: Patient appears in no apparent distress at this time. No changes from ld1 previously documented assessment. Patient is alert, oriented x 3, equal unlabored respirations, skin warm/dry/pink. 15:05 Reassessment: informed [facility] to arrange discharge transportation. tp1 15:30 Reassessment: Patient appears in no apparent distress at this time. No changes from tp1 previously documented assessment. Patient is alert, oriented x 3, equal unlabored respirations, skin warm/dry/pink. resting in bed with eyes closed. 15:49 Reassessment: Called [facility] for an update of pt transportation, spoke vg1 with facility staff and stated "transportation should be arriving within the hour". Vital Signs: 12:40 BP 156 / 68; Pulse 95; Resp 16; Pulse Ox 96% on R/A; tp1 13:30 BP 137 / 56; Pulse 78; Resp 20; Pulse Ox 100% on R/A; tp1 14:07 BP 142 / 63; Pulse 76; Resp 17; Pulse Ox 100% on R/A; ld1 14:36 BP 139 / 98; Pulse 111; Resp 25; Pulse Ox 99% on R/A; tp1 16:16 BP 143 / 85; Pulse 108; Resp 23; Pulse Ox 100% on R/A; tp1 Chey Coma Score: 12:45 Eye Response: spontaneous(4). Verbal Response: oriented(5). Motor Response: obeys vg1 commands(6). Total: 15. 13:30 Eye Response: spontaneous(4). Verbal Response: oriented(5). Motor Response: obeys tp1 commands(6). Total: 15. 14:36 Eye Response: spontaneous(4). Verbal Response: oriented(5). Motor Response: obeys tp1 commands(6). Total: 15. 16:16 Eye Response: spontaneous(4). Verbal Response: oriented(5). Motor Response: obeys tp1 commands(6). Total: 15. Trauma Score (Adult): 12:45 Eye Response: spontaneous(1); Verbal Response: oriented(1); Motor Response: obeys vg1 commands(2); Systolic BP: > 89 mm Hg(4); Respiratory Rate: 10 to 29 per min(4); Chey Score: 15; Trauma Score: 12 14:36 Eye Response: spontaneous(1); Verbal Response: oriented(1); Motor Response: obeys tp1 commands(2); Systolic BP: > 89 mm Hg(4); Respiratory Rate: 10 to 29 per min(4); Chey Score: 15; Trauma Score: 12 ED Course: 12:41 Patient arrived in ED. eb 12:44 Brianne Collado MD is Attending Physician. sd2 12:51 Modesta Baker RN is Primary Nurse. tp1 12:55 Patient has correct armband on for positive identification. Placed in gown. Bed in low vg1 position. Call light in reach. Side rails up X2. Client placed on continuous cardiac and pulse oximetry monitoring. NIBP monitoring applied. 12:55 Arm band placed on. vg1 12:55 Patient maintains SpO2 saturation greater than 95% on room air. vg1 12:55 Thermoregulation: warm blanket given to patient. vg1 13:10 Triage completed. tp1 14:05 Cheryle Tracy MD is Referral Physician. sd2 14:38 No provider procedures requiring assistance completed. Maintain EMS IV. Dressing tp1 intact. Good blood return noted. Site clean \\T\\ dry. Gauge \\T\\ site: left wrist . Administered Medications: 13:01 Drug: fentaNYL (PF) 50 mcg Route: IVP; Site: left wrist; tp1 14:45 Follow up: Response: Pain is decreased tp1 14:14 Drug: traMADol 50 mg Route: PO; vg1 16:32 Follow up: Response: Pain is decreased tp1 Medication: 14:32 VIS not applicable for this client. ld1 Outcome: 14:06 Discharge ordered by . sd2 14:44 Patient's length of stay was not longer than 2 hours. tp1 16:27 Discharged to senior care. tp1 16:27 Condition: good 16:28 Discharged to senior care. Report called to nikki MARK tp1 16:28 Discharge instructions given to senior care, Instructed on discharge instructions, follow up and referral plans. medication usage, Demonstrated understanding of instructions, follow-up care, medications, Prescriptions given X 1. 16:29 Patient left the ED. tp1 Signatures: Mariya Holliday Victoria RN RN vg1 Perla Goodson RN RN ld1 Modesta Baker RN RN tp1 Brianne Collado MD MD sd2 Corrections: (The following items were deleted from the chart) 12:54 12:45 Exposure/Environment: All clothing and personal items were removed. Forensic vg1 evidence collection is not deemed to be indicated at this time. Items placed in patient belonging bag. There is no evidence of uncontrolled external bleeding. Obvious injury(ies) are noted at this time: bridge of nose appears to be swollen and laceration noted to bridge of nose as well. Bleeding controlled. vg1 12:54 12:45 Musculoskeletal: Swelling present in nose vg1 vg1 14:39 14:38 Patient did not have IV access during this emergency room visit. tp1 tp1 16:52 12:40 Musculoskeletal: Circulation, motion, and sensation intact. tp1 tp1
--- NOTE | 2022-05-21 14:06 | EDPHYS ---
Physician Documentation [facility] Name: Deepika Mobley Age: 77 yrs Sex: Female : 1945 Arrival Date: 05/21/2022 Time: 12:41 Bed 8 Private MD: ED Physician Brianne Collado HPI: 05/21 13:30 This 77 yrs old Female presents to ER via EMS with complaints of Facial Injury. sd2 13:30 77-year-old female presents via EMS with chief complaint of facial injury. She had a sd2 witnessed fall at [facility] where she fell face forward out of her wheelchair and hit her face. They deny any head injury or loss of consciousness and the patient is not on blood thinners. She mostly complains of pain to her nose area as well as her left hand. The patient does have dementia and is currently at her baseline. She is alert and oriented x1.. Historical: - Allergies: 13:10 No Known Allergies; tp1 - PMHx: 13:10 CVA; Dementia; Diabetes - IDDM; Hypertension; Hypothyroidism; tp1 - Immunization history:: Client reports having NOT received the Covid vaccine. - Social history:: Smoking status: unknown. - Immunization history: Last tetanus immunization: unknown. ROS: 13:30 Constitutional: Negative for fever, chills, and weight loss, Eyes: Negative for injury, sd2 pain, redness, and discharge, ENT: Positive for injury, pain, and negative for discharge, Neck: Negative for injury, pain, and swelling, Cardiovascular: Negative for chest pain, palpitations, and edema, Respiratory: Negative for shortness of breath, cough, wheezing. Abdomen/GI: Negative for abdominal pain, nausea, vomiting, diarrhea. Back: Negative for injury and pain, MS/Extremity: Negative for injury and deformity, Skin: Negative for injury, rash, and discoloration, Neuro: Negative for headache, numbness and tingling. Exam: 13:30 Constitutional: This is a well developed, well nourished patient who is awake, alert, sd2 and in no acute distress. Head/Face: Normocephalic, bruising and swelling noted about the mid-face especially to the nasal bridge area; no visualized nasal septal hematoma Eyes: EOMI, normal conjunctiva bilaterally ENT: Nares patent. No nasal discharge, no septal abnormalities noted. Oropharynx with no redness, swelling, or masses, exudates, or evidence of obstruction, uvula midline. Mucous membranes moist. Chest/axilla: Normal chest wall appearance and motion. Nontender with no deformity. Cardiovascular: Regular rate and rhythm with a normal S1 and S2. No gallops, murmurs, or rubs. 2+ distal pulses. Respiratory: Lungs have equal breath sounds bilaterally, clear to auscultation and percussion. No rales, rhonchi or wheezes noted. No increased work of breathing, no retractions or nasal flaring. Abdomen/GI: Soft, non-tender, with normal bowel sounds. No guarding or rebound. No evidence of tenderness throughout. Back: No spinal tenderness. No costovertebral tenderness. Full range of motion. No stepoffs or deformities. Skin: Warm, dry with normal turgor. Normal color with no rashes, no lesions, and no evidence of cellulitis. Small skin tear noted to R arm MS/ Extremity: Pulses equal, no cyanosis. Neurovascular intact. Full, normal range of motion. Pain with palpation of the L dorsal hand Psych: At baseline. A\T\Ox1 Vital Signs: 12:40 BP 156 / 68; Pulse 95; Resp 16; Pulse Ox 96% on R/A; tp1 13:30 BP 137 / 56; Pulse 78; Resp 20; Pulse Ox 100% on R/A; tp1 14:07 BP 142 / 63; Pulse 76; Resp 17; Pulse Ox 100% on R/A; ld1 14:36 BP 139 / 98; Pulse 111; Resp 25; Pulse Ox 99% on R/A; tp1 16:16 BP 143 / 85; Pulse 108; Resp 23; Pulse Ox 100% on R/A; tp1 Chey Coma Score: 12:45 Eye Response: spontaneous(4). Verbal Response: oriented(5). Motor Response: obeys vg1 commands(6). Total: 15. 13:30 Eye Response: spontaneous(4). Verbal Response: oriented(5). Motor Response: obeys tp1 commands(6). Total: 15. 14:36 Eye Response: spontaneous(4). Verbal Response: oriented(5). Motor Response: obeys tp1 commands(6). Total: 15. 16:16 Eye Response: spontaneous(4). Verbal Response: oriented(5). Motor Response: obeys tp1 commands(6). Total: 15. Trauma Score (Adult): 12:45 Eye Response: spontaneous(1); Verbal Response: oriented(1); Motor Response: obeys vg1 commands(2); Systolic BP: > 89 mm Hg(4); Respiratory Rate: 10 to 29 per min(4); Chey Score: 15; Trauma Score: 12 14:36 Eye Response: spontaneous(1); Verbal Response: oriented(1); Motor Response: obeys tp1 commands(2); Systolic BP: > 89 mm Hg(4); Respiratory Rate: 10 to 29 per min(4); Chey Score: 15; Trauma Score: 12 MDM: 12:44 Patient medically screened. sd2 13:30 Differential diagnosis: Differential diagnosis includes but is not limited to: sd2 Fracture, contusion, abrasion, closed head injury, pneumothorax, intra-abdominal injury, intracranial hemorrhage, spinal injury among others. Data reviewed: vital signs, nurses notes, EMS record. 14:04 Data reviewed: radiologic studies. Counseling: I had a detailed discussion with the sd2 patient and/or guardian regarding: the historical points, exam findings, and any diagnostic results supporting the discharge/admit diagnosis, radiology results, the need for outpatient follow up, to return to the emergency department if symptoms worsen or persist or if there are any questions or concerns that arise at home. ED course: Imaging reviewed with nasal bone and septum fractures noted. Pt with no nasal septal hematoma and is able to breathe comfortably. Pain controlled. Advised NH of need for patient to follow up with PCP and ENT regarding injury to ensure proper healing. Verbalized understanding of discharge plan and strict return precautions.. 05/21 12:47 Order name: CT Head C Spine sd2 05/21 12:47 Order name: CT Facial Bones W/O Con sd2 05/21 12:47 Order name: XRAY Hand LEFT 3 View sd2 05/21 13:41 Order name: CT; Complete Time: 14:02 EDMS 05/21 13:45 Order name: CT; Complete Time: 14:02 EDMS 05/21 13:59 Order name: RAD; Complete Time: 14:02 EDMS 05/21 12:47 Order name: Ice pack; Complete Time: 14:14 sd2 Administered Medications: 13:01 Drug: fentaNYL (PF) 50 mcg Route: IVP; Site: left wrist; tp1 14:45 Follow up: Response: Pain is decreased tp1 14:14 Drug: traMADol 50 mg Route: PO; vg1 16:32 Follow up: Response: Pain is decreased tp1 Disposition Summary: 05/21/22 14:06 Discharge Ordered Location: Home sd2 Problem: new sd2 Symptoms: have improved sd2 Condition: Stable sd2 Diagnosis - Fracture of nasal bones, initial encounter for closed fracture sd2 - Unspecified injury of head, initial encounter sd2 Followup: sd2 - With: Private Physician - When: 2 - 3 days - Reason: Recheck today's complaints, Continuance of care, Re-evaluation by your physician Followup: sd2 - With: Cheryle Tracy MD - When: 2 - 3 days - Reason: Recheck today's complaints, Continuance of care, Re-evaluation by your physician Discharge Instructions: - Discharge Summary Sheet sd2 - Head Injury, Adult sd2 - Nasal Fracture sd2 Forms: - Medication Reconciliation Form sd2 - Thank You Letter sd2 - Antibiotic Education sd2 - Prescription Opioid Use sd2 Prescriptions: - Tramadol 50 mg Oral Tablet - take 1 tablet by ORAL route every 6 hours As needed as needed; 12 tablet; sd2 Refills: 0, Product Selection Permitted Signatures: Dispatcher [employer] Elsie Collins RN RN vg1 Modesta Baker RN RN tp1 Brianne Collado MD MD sd2
[2022-05-21] MEDS ORDERED: TRAMADOL HCL 50 MG TAB ONE (14:08)
[2022-05-21 16:50] VITALS: BP 143/85; O2SAT 100
== END 2022-05-21 16:29 | disposition home or self-care (01) ==
LOC: ER 12:39
DX: S02.2XXA Fracture of nasal bones, initial encounter for closed fracture (principal); W05.0XXA Fall from non-moving wheelchair, initial encounter; Y93.9 Activity, unspecified; Y92.129 Unspecified place in nursing home as the place of occurrence of the external cause; F03.90 Unspecified dementia, unspecified severity, without behavioral disturbance, psychotic disturbance, mood disturbance, and anxiety; I10 Essential (primary) hypertension; E03.9 Hypothyroidism, unspecified; E11.9 Type 2 diabetes mellitus without complications; Z86.73 Personal history of transient ischemic attack (TIA), and cerebral infarction without residual deficits
CPT/HCPCS: 70450; 72125; 70486; 76377; 73130; 96374; 99284; J3010

== ENCOUNTER 2023-01-24 03:33 | Emergency (ER) | payer OTHER ==
--- OUTSIDE RECORDS SUMMARY | 2023-01-24 03:38 | XMS REPORT | Continuity of Care Document ---
:1945 Author Organization [facility] t Address [address] [place] [address] [address] [place] [address] Care Team Providers Name Role Phone No, Pcp [facility] Primary Care Physician Unavailable JOHAN VELIZ Attending Clinician Unavailable DAYA FELICIANO Attending Clinician Unavailable Yoana LOPEZ, Emre Manning Attending Clinician Pj LOPEZ, Aman Lowe Attending Clinician Didi Lake MD Attending Clinician Daya Feliciano MD Attending Clinician No, Pcp [facility] Attending Clinician Unavailable Sheikh JOHN, Lillian Pope Attending Clinician Jose Lobato MD Attending Clinician EMRE GAMBLE Attending Clinician Unavailable Silvia Bell MD Attending Clinician J Luis Acosta Attending Clinician Krista LOPEZ, Huey Iqbal Attending Clinician Jami Garcia MD Attending Clinician JAMI GARCIA Attending Clinician Unavailable Doctor Unassigned, [place] Attending Clinician Unavailable EMRE GAMBLE Admitting Clinician Unavailable Payers Payer Name Policy Type Policy Number Effective Date Expiration Date Melecio [facility] [id number] 2021 ADVANTAGE HMO 00:00:00 [facility] [id number] 2022 MEDICAID 00:00:00 MANAGED MEDICAID [id number] 2022 -GENERIC 00:00:00 [employer]LL[employer] MEDICARE [id number] 2021 00:00:00 GENERIC MEDICAID [id number] 2019 HMO 00:00:00 Problems Condition Condition Condition Status Onset Resolution Last Treating Co mments Source Name Details Category Date Date Treatment Clinician Date Duodenal Duodenal Disease [facility] 00 [place] Acute Acute Disease Active [facility] blood loss blood loss 8-13 [facility] kes anemia anemia 00:00: Medical 00 [place] Dementia Dementia Disease [facility] behavioral behavioral 00:00: Me dical disturbanc disturbanc 00 Ce nter e e Allergies, Adverse Reactions, Alerts Allergy Allergy Status Severity Reaction(s) Onset Inactive Treating Comm ents Source Name Type Date Date Clinician NO KNOWN Drug Active Univers ALLERGIE Class ity of [facility] NO KNOWN Allergy Active [facility] Social History Social Habit Start Date Stop Date Quantity Comments Source Exposure to Not sure [facility] Tobacco use and 2022-04-03 2022-04-03 Never used [facility] St [place] ke exposure 00:00:00 00:00:00 [facility] Sex Assigned At [birth year] [facility] llege of 00:00:00 00:00:00 Medicine Smoking Status Start Date Stop Date Source Tobacco smoking consumption [facility] unknown Current every day smoker 2022-04-03 00:00:00 [facility] Medications Ordered Filled Start Stop Current Ordering Indication Dosage Frequency Signature Comments Components Source Medication Medication Date Date Medication? Clinician (SIG) Name Name No known 2021-08 No No known [facility] 0-04 medication Co llege 09:03: s of 16 Medicin e amLODIPine 0 2022- No 10mg QD Take [address] [facility] (NORVASC) [...] by mouth Med ical GG, 00 daily. [place] (CULTURELLE ) 10 billion cell capsule levothyroxi [...] minerals 21:49: mouth Medical tablet 00 daily. [place] magnesium Yes constipatio 30mL Take 30 [facility] [...] Take [address] (ULTRAM) 50 -17 by mouth Luke s mg tablet 21:49: [...] 40mg Q.5D Take [address] e 8-17 tablet (40 [facility] (PROTONIX) 00:00: mg total) Me dical 40 MG 00 by mouth 2 Center tablet (two) times daily. sertraline Yes anxiety Recommend [facility] (ZOLOFT) 25 8-17 with taper as Luke s MG tablet 00:00: depression follows: Medical 00 sertraline Center 50 mg x 7 days (04/07 - 04/13), 25 mg x 7 days (04/14 - 04/20). Last day 04/20. rivastigmin 2022- No 1{patch QD Place [address] e (EXELON) 8-17 -17 } patch onto Ludmila kes 9.5 mg/24 00:00: 23:59 the skin Med ical hour patch 00 :00 daily. Center sucralfate 2021- No 1g Q.5D Take [address] (CARAFATE) 8-17 09-14 mLs (1 g Luke s 100 mg/mL 00:00: 23:59 total) by Al dical suspension 00 :00 mouth 2 Center [...] by mouth Med ical GG, 58 daily. [place] ([facility] ) 10 billion cell capsule levothyroxi Yes 100ug Take [address] ne 8-15 mcg by Luclaritza (SYNTHROID, 17:42: mouth Medic al LEVOTHROID) 58 Every Center 100 MCG morning on tablet an empty stomach. lidocaine Yes 2{patch Q24H Place [address] (LIDODERM) 8-15 } patches [facility] 5 % patch 17:42: onto the Medi [...] I St n with 8-15 tablet by [facility] minerals 17:42: mouth Medical tablet 58 daily. Center magnesium Yes constipatio 30mL Take [address] [facility] hydroxide 8-15 n mLs by [facility] (magnesium 17:42: mouth Medica l hydroxide) 58 [...] Luke s MG tablet 17:42: depression daily. Medical 58 Center permethrin 2020- No [id number] Apply to Univers 5 % cream 04-0618 area(s) ity of 00:00: 04:59 once now [place] 00 :00 for 1 Medical dose. Branch permethrin 2020- No [id number] Apply to Univers 5 % cream 04-06 area(s) ity of 00:00: 04:59 once now [place] 00 :00 for 1 Medical dose. Branch Vital Signs Vital Name Observation Time Observation Value Comments Source Respiratory rate 2022-05-24 13:44:00 18 /min [facility] HEIGHT 2022-04-02 13:00:00 154.9 cm WEIGHT 2022-04-02 13:00:00 44.9 kg HEIGHT 2022-04-02 13:00:00 154.9 cm WEIGHT 2022-04-02 13:00:00 44.9 kg Systolic blood 2022-04-06 19:35:00 116 mm[Hg] [facility] Diastolic blood 2022-04-06 19:35:00 49 mm[Hg] [facility] Heart rate 2022-04-06 19:35:00 115 /min [facility] Body temperature 2022-04-06 19:35:00 36.78 Shanell [facility] Respiratory rate 2022-04-06 19:35:00 18 /min [facility] Oxygen saturation in 2022-04-06 19:35:00 98 /min [facility] Arterial blood by Medical Ce nter Pulse oximetry Systolic blood 2022-04-05 12:00:00 123 mm[Hg] [facility] Diastolic blood 2022-04-05 12:00:00 98 mm[Hg] [facility] Heart rate 2022-04-05 12:00:00 97 /min [facility] Body temperature 2022-04-05 12:00:00 36.72 Shanell [facility] Respiratory rate 2022-04-05 12:00:00 20 /min [facility] Oxygen saturation in 2022-04-05 12:00:00 97 /min [facility] Arterial blood by Medical Ce nter Pulse oximetry Body height 2022-04-02 13:00:00 154.9 cm [facility] Body weight 2022-04-02 13:00:00 44.9 kg [facility] BMI 2022-04-02 13:00:00 18.70 kg/m2 [facility] Procedures Procedure Date / Time Performing Clinician Source Performed CBC W/O DIFF W PLT 2022-05-24 09:01:35 [facility] POCT-GLUCOSE METER 2022-04-06 18:17:00 Daya Feliciano [facility] SARS-COV2/RT-PCR ([facility] & 2022-04-06 18:05:[address] [facility] REF LABS) [place] POCT-GLUCOSE METER 2022-04-06 11:31:00 Daya Feliciano [facility] POCT-GLUCOSE METER 2022-04-06 06:32:00 Didi Lake [facility] BASIC METABOLIC PANEL 2022-04-06 04:24:00 Cheryle-Kaden Sung In [facility] CBC W/PLT COUNT & AUTO 2022-04-06 04:24:00 Cheryle-Kaden, Sung In [facility] Center MAGNESIUM 2022-04-06 04:24:00 Cheryle-Kaden, Sung In [facility] CBC W/PLT COUNT & AUTO 2022-04-06 04:24:00 Cheryle-Kaden Sung In [facility] POCT-GLUCOSE METER 2022-04-05 21:27:00 Didi Lake [facility] POCT-GLUCOSE METER 2022-04-05 18:43:00 Didi Lake [facility] POCT-GLUCOSE METER 2022-04-05 12:40:00 Didi Lake [facility] POCT-GLUCOSE METER 2022-04-05 06:40:00 Cheryle-Kaden, Sung In [facility] BASIC METABOLIC PANEL 2022-04-05 05:52:00 Cheryle-Kaden, Sung In [facility] CBC W/PLT COUNT & AUTO 2022-04-05 05:52:00 Cheryle-Kaden Sung In [facility] DIFFERENTIAL Center MAGNESIUM 2022-04-05 05:52:00 Aman Oliva In [facility] CBC W/PLT COUNT & AUTO 2022-04-05 05:52:00 Aman Oliva In [facility] POCT-GLUCOSE METER 2022-04-04 21:16:[address] [facility] POCT-GLUCOSE METER 2022-04-04 11:47:00 Yoana [facility] POCT-GLUCOSE METER 2022-04-04 08:02:00 Yoana [facility] CBC W/PLT COUNT & AUTO 2022-04-04 04:09:00 Claudia [facility] CBC W/PLT COUNT & AUTO 2022-04-04 04:09:00 Claudia [facility] MAGNESIUM 2022-04-04 04:09:00 Claudia [facility] BASIC METABOLIC PANEL 2022-04-04 04:09:00 Claudia [facility] POCT-GLUCOSE METER 2022-04-04 00:04:00 Yoana [facility] PREPARE LEUKO-REDUCED 2022-04-03 23:54:00 Sherin Bennett [facility] POCT-GLUCOSE METER 2022-04-03 22:03:00 Yoana [facility] POCT-GLUCOSE METER 2022-04-03 18:31:00 Yoana [facility] POCT-GLUCOSE METER 2022-04-03 13:18:00 Yoana [facility] HEMOGLOBIN AND 2022-04-03 13:11:00 Claudia [facility] HEMATOCRIT [facility] TISSUE EXAM 2022-04-03 12:08:00 Lillian Noriega [facility] ESOPHAGOGASTRODUODENOSCO 2022-04-03 11:30:00 Sheikh [facility] PY, WITH SCLEROSING Center AGENT INJECTION ESOPHAGOGASTRODUODENOSCO 2022-04-03 11:30:00 Sheikh [facility] PY, WITH HEMORRHAGE Center CONTROL ESOPHAGOGASTRODUODENOSCO 2022-04-03 11:30:00 Sheikh [facility] PY, WITH BIOPSY Center ESOPHAGOGASTRODUODENOSCO 2022-04-03 11:30:00 Sheikh [facility] PY, WITH SUBMUCOSAL Center INJECTION REPORT OF PROCEDURE - 2022-04-03 11:16:57 Sheikh [facility] ENDOSCOPY URL Center POCT-GLUCOSE METER 2022-04-03 08:17:00 [facility] CBC W/PLT COUNT & AUTO 2022-04-03 03:24:00 Claudia [facility] DIFFERENTIAL [facility] LACTIC ACID, VENOUS 2022-04-03 03:24:00 [facility] [place] CBC W/PLT COUNT & AUTO 2022-04-03 03:24:00 Claudia [facility] DIFFERENTIAL [facility] MAGNESIUM 2022-04-03 03:24:00 Claudia [facility] BASIC METABOLIC PANEL 2022-04-03 03:24:00 Claudia [facility] TRANSFUSE LEUKO-REDUCED 2022-04-02 23:45:[address] [facility] RED BLOOD CELLS Center HEMOGLOBIN AND 2022-04-02 21:55:00 Claudia [facility] HEMATOCRIT [facility] POCT-GLUCOSE METER 2022-04-02 21:54:00 Yoana [facility] POCT-GLUCOSE METER 2022-04-02 17:30:00 Yoana [facility] ABORH, MANUAL 2022-04-02 16:19:00 Magaly Cary [facility] LACTIC ACID, VENOUS 2022-04-02 16:19:00 Sarah Thea [facility] POCT-GLUCOSE METER 2022-04-02 13:43:00 YoanaEmre [facility] SODIUM, RANDOM URINE 2022-04-02 13:01:00 Claudia [facility] CREATININE, RANDOM URINE 2022-04-02 13:01:00 Benson [facility] TYPE AND SCREEN, 2022-04-02 12:38:[address] [facility] AUTOMATED [facility] CBC W/PLT COUNT & AUTO 2022-04-02 12:38:00 Claudia [facility] CBC W/PLT COUNT & AUTO 2022-04-02 12:38:00 Claudia [facility] DIFFERENTIAL [facility] PROTHROMBIN TIME/INR 2022-04-02 12:38:00 Claudia [facility] FIBRINOGEN 2022-04-02 12:38:00 Claudia [facility] COMPREHENSIVE METABOLIC 2022-04-02 12:38:[address] [facility] MAGNESIUM 2022-04-02 12:38:00 Claudia [facility] LACTIC ACID, VENOUS 2022-04-02 12:38:00 Claudia [facility] BLOOD GAS, VENOUS 2022-04-02 12:38:00 Claudia [facility] IRON, TIBC, % SAT. 2022-04-02 12:38:00 [facility] (WITHOUT FERRITIN) [facility] FERRITIN 2022-04-02 12:38:00 Benson [facility] VITAMIN B12 2022-04-02 12:38:00 [facility] HEMOGLOBIN AND 2022-04-02 12:38:00 [facility] URINE CULTURE 2022-04-02 12:29:00 [facility]INALYSIS W/ REFLEX 2022-04-02 12:29:00 [facility] URINE CULTURE [facility] ASSIGNMENT OF BENEFITS 2020-04-06 15:34:56 Doctor Unassigned, No [facility] Plan of Care Planned Activity Planned Date Details Comments Source Future Scheduled 2022-05-24 CBC W/O DIFF W PLT Ordered: [employer] Test 09:01:35 [code = 6690-2] 05/24/2022 of Medicine Future Scheduled 2022-05-24 FALL SCREEN [code = [employer] Test 08:47:20 FALL SCREEN] of Medicine Future Scheduled 2022-05-24 Screening for [facility] Col [facility]ge Test 08:47:20 osteoporosis of Medicine (procedure) [code = 288212003] Future Scheduled 2022-05-24 Pneumococcal 65+ (1 [employer] Test 08:47:20 - PCV) [code = of Medicine Pneumococcal 65+ (1 - PCV)] Future Scheduled 2022-05-24 MEDICARE IPPE [facility] Col [facility]ge Test 08:47:20 (WELCOME TO of Medicine MEDICARE) [code = MEDICARE IPPE (WELCOME TO MEDICARE)] Future Scheduled 2022-05-24 FLU VACCINE > 6 [facility] C ollege Test 08:47:20 MONTHS [code = FLU of Medici ne VACCINE > 6 MONTHS] Future Scheduled 2022-05-24 TETANUS SHOT (ADULT) [place] [employer] Test 08:47:20 [code = TETANUS SHOT of Medi cine (ADULT)] Future Scheduled 2022-05-24 Hepatitis C [facility] Pedro ege Test 08:47:20 screening of Medicine (procedure) [code = 202457073] Future Scheduled 2022-05-24 ZOSTER VACCINE (1 of [place] [employer] Test 08:47:20 2) [code = ZOSTER of Medicin e VACCINE (1 of 2)] Future Scheduled 2022-04-21 [facility] (#1) [code = Medical Center INFLUENZA VACCINE (#1)] Future Scheduled 2022-04-[address] [facility] Test 00:00:00 (#1) [code = Medical Center INFLUENZA VACCINE (#1)] Future Scheduled 2021-08-[address] [facility] Test 00:00:00 (12+) [code = Medical Center DEPRESSION SCREENING (12+)] Future Scheduled 2021-08-21 FALLS RISK SCREENING [facility] Test 00:00:00 [code = FALLS RISK Medical C enter SCREENING] Future Scheduled 2021-08-[address] [facility] Test 00:[facility]:00 (WELCOME TO [facility] Center MEDICARE) [code = Medicare IPPE (WELCOME TO MEDICARE)] Future Scheduled 2021-08-21 FALLS RISK SCREENING [facility] Test 00:00:00 [code = FALLS RISK Medical C enter SCREENING] Future Scheduled 2021-08-[address] [facility] Test 00:00:00 (WELCOME TO [facility] MEDICARE) [code = Medicare IPPE (WELCOME TO MEDICARE)] Future Scheduled 1993 SHINGLES VACCINES ([address] [facility] Test 00:00:00 of 2) [code = Medical Center SHINGLES VACCINES (1 of 2)] Future Scheduled 1993 SHINGLES VACCINES ([address] [facility] Test 00:00:00 of 2) [code = [facility] Center SHINGLES VACCINES (1 of 2)] Future Scheduled 1962 DTAP/TDAP/TD [facility] Test 00:00:00 VACCINES (1 - Tdap) Medical Center [code = DTAP/TDAP/TD VACCINES (1 - Tdap)] Future Scheduled 1962 DTAP/TDAP/TD [facility] Test 00:00:00 VACCINES (1 - Tdap) Medical Center [code = DTAP/TDAP/TD VACCINES (1 - Tdap)] Future Scheduled [address] [facility] Test 00:00:00 SCREENING [code = Medical Ce nter HEPATITIS C SCREENING] Future Scheduled [address] [facility] Test 00:00:00 SCREENING [code = Medical Ce nter HEPATITIS C SCREENING] Future Scheduled 1949 PNEUMOCOCCAL 65+ YRS [facility] Test 00:00:00 (1 - PCV) [code = Medical Ce nter PNEUMOCOCCAL 65+ YRS (1 - PCV)] Future Scheduled 1949 PNEUMOCOCCAL 65+ YRS [facility] Test 00:00:00 (1 - PCV) [code = Medical Ce nter PNEUMOCOCCAL 65+ YRS (1 - PCV)] Future Scheduled 1948 COVID-[address] [facility] Test 00:00:00 (#1) [code = Medical Center COVID-19 VACCINE (#1)] Future Scheduled 1943 COVID-[address] [facility] Test 00:00:00 (#1) [code = Medical Center COVID-19 VACCINE (#1)] Future Scheduled 1945 DXA SCAN [code = DXA [facility] Test 00:00:00 SCAN] [facility] Center Future Scheduled 1943 DXA SCAN [code = DXA [facility] Test 00:00:00 SCAN] [facility] Encounters Start End Encounter Admission Attending Care Care Encounter Source Date/Time Date/Time Type Type Clinicians Facility Department ID 2022-05-24 2022-05-24 Office MASHA VELIZ [id number] [place] [address] 08:40:53 10:16:35 Visit JOHAN AMBULATOR [id number] College Y [id number] [id number] [facility] 325 e 2022-04-02 2022-04-06 Inpatient ER ROGELIO FELICIANO [facility] [id number] SLE 11:45:00 21:48:00 DAYA 2022-04-02 2022-04-06 Hospital ER YoanaGaetano myersmario Sued [facility] [id number] 11:45:00 21:48:00 Encounter Aman Oliva In [facility] Jaya, [facility]ashash [facility] 2022-04-04 2022-04-04 Outside No, Pcp [facility] [id number] 00:00:00 00:00:00 Orders [facility] 2022-04-03 2022-04-[address] [facility] [id number] 11:30:00 12:30:00 Lillian Pope [facility] 2022-04-03 2022-04-[address] [facility] [id number] 11:38:00 12:28:[address] [facility] 2022-04-02 2022-04-02 Outpatient SERENITY AGMBLE [facility] [id number] [facility] 00:00:00 00:00:00 EMRE daniels 2022-04-02 2022-04-[address] [facility] [id number] 00:00:00 00:00:00 Silvia [facility] 2020-04-06 2020-04-06 Office Karla [facility] [id number] 10:35:17 10:50:17 Visit J Luis FINLEY 350.1.13.10 JITENDRA 4.2.7.2.686 [place] [id number] [place] [address] [facility] 2020-04-06 2020-04-06 Office J Luis Acosta [facility] [id number] [facility] 10:35:17 10:50:17 Visit Huey Velasco 350.1.1 3.10 ity of Jami Garcia 4.2.7.2.686 [facility] [id number] [facility] AND [address] DI[facility] 2020-04-06 2020-04-06 Outpatient Dania GARCIA [facility] [id number] Univers 10:45:00 10:45:00 JAMI harrison of [facility] 2020-04-06 2020-04-06 Orders Doctor KSENIA [id number] Univers 00:00:00 00:00:00 Only Unassigned, CHARBEL 350.1.13.10 ity of [place] [facility] 4.2.7.2.686 [facility] as [id number] [facility] 009 Branch Results Test Description Test Time Test Comments Results Result Comments Source Tissue Exam 2022-04-07 13:47:51 Test Item Value Reference Range Interpretation Comme nts Case Report (test code = 104) Surgical Pathology Report Case: [id number] Authorizing Provider: Lillian Noriega MD Collected: 04/03/2022 12:08 PM Ordering Location: [place] [address] ICU Received: 04/04/2022 08:46 AM Pathologist: Crystal Beckford MD Specimen: Biopsy, Gastric, rule out H Pylori DIAGNOSIS (test code = 3220) p4qkgMTfPLMzv3uyBDMlkDLnLcKeHhNuYzEkAd p cdWMxIHtccnRmMVxlcGljOTYwMlxhbnNpXHNwbH MbR1XdrspxRWjaQE1cGX6vkJbwxXExdPPgDWBuB jZng1mec308aNDfm1hgSCGCiwgnyIf3aYdoD84t p1P8FpvdL66bhVTkIVP9AJPcBTVpuEEbGHYzEBE 9HJYwqNDpH8yuIUFjXJ7trpouSSvmONjbHXEshB E7FQRdqNUeK0KfMUZbKJvyDTDivfw8QkHvJl4ck XBbuOtaOYkjFORoHYWvPXhvEATrDjJlW1LWDIFV LXtvI4jSHHMNO6XaE8RDJ1hMWYOTMCZEVR5LJ8o 0GINpkcf6QOTcXIWCAVGRCXZEHsQpY8xHZrMANw CZLQBSB5EtB6tAKZRGYkPGBIOMR2zEA6uLTHMFT YGVOATJG67lsGQhDEZtRzToOiXXTTIKQaFsMh8S NYqULUyTG5EPW7QJOaERBXYRD01US3PONTHJDcA EKuQRE5NXIY7KVGBLLHoWFrLwxOEktGzjhiYcWE exh1UjADgwLEGwIT7dnFpxFYNsWK4nQQBuL7gob K2mjqe9OxJtDPXxHwA6KNPkdyI5Zra6RWMdORsc c3cxn6JgVUCiULb4zVzgAhYvFIQxd8tneqJmNhV oRGRzTABsKENzwLQxR133y7siu9fzxzFnzUJ4FR DxWTI7DUzafiShxnL3YZsqiBCtQpG8YKbihiKrK ZmunbPevzVzDcx5IHDzK033AVM9pUrgi9pgFDX0 OIAePAPzCiQrGu4ggOUgW782UQCbHVABMIFagWj 9NRVsopCgfwBtlOGNj525J034a1zjHCEtbgKdnN kPoorlp6byX574DDDvsKRigsLcQbXjKGPzbKFar AH4WIQqMX2ooshuYSpeXVggENXbrfM0LXJsuAQy E2CpQRSfQW1bvrsuLMK2ISgdBXJkAEB9EtEhJSQ zk1Gouhx9WkXlud6dzv10UXY7i0EgsUphUSW0FM X4NvEgVe9pqQCkHGPySE4wQhXkmBOwXGCkpx22c QxcWVtwPCG9GQDhisEpj4Anf2afDzNmliYxJ5ny Y4WbONYbSCTyEJTbDlHqnzHsa8Rpr1NayAGjcGi 7z0zrUMLtHRUizKmea5jkUAR9EQDiiUVhJ8safL 9pPZHyKX6vtxwcp3tuPMbpEGhkCYYgmOF2onU4T PDdcOFfB2KtlQ8lPRQiWGovMSBiupd0ZbIcPw1t dGVyeTcyMFxzYmtwYWdlXHBnbmNvbnRccGduZGV jXHBsYWluXHBsYWluXGYwXGZzMjRccWxcbGFuZz EeJjVqrEnuxJolNDfaLzEeWPFmRMdrR5ggDkMoB aUkFcn0QDIwdRErUZJyHvd6GFSpgWPxSZBXbEos jA1qZXXgmOuxnN3ceFV3IFQdkfSumSGSvA2yNMI SkE1sLiP1TINeCfm7PQN4BfSbhVBsoN3= CPT Code(s) (test code = 3357) l5vdsHJxPHXljVZ1ObHhIIAke0kts8OgoEJg cGF rOAbfcGIogzVvpz21mBL4uO59GX8vZCGgJqP1IV RslfB5Lab3TUYqQWKvnOUkS755y6ish4umkdOcc WQ4jYzhPEIdydjuTrC3KWgwVOWfgnnqXGw1WUyi GVLuoPY8INGgbQGkS6MpJJAxVZ1tqye3IYR0UOg mWXHiGgQ5IUUraEBcOJGecWceXNqic994VWP7We UiJDWfhkXmfLgswX9nUuXkKGE2FIGaKJuqPRZ2 CLINICAL HISTORY (test code = 3356) v5tqnRJgEYRcxQN2KkErPKWlz0cua5R sdHBncGF nKVhiqNRwogGnjy94iPJ6yR74GZ4zQVDtKdE4YC KfukO5Tzz9HTZsXIHunUKkG889v3gjb8owpoXpr FR8vRbfMMErbeedSyZ8FYdxIABwrpylNVi4BIia ZNCgoDF7YHIpbSVfG6OlMKWsDK4wzhe6STD5HAa mQFWuHoZ9QQNutUBuFXMouUrkNNksp346YGI8Cr IeELOmeqSooIvckR1qPoXlQLQWPBQnwQQymO== GROSS DESCRIPTION (test code = y2qkaHEvTEPglFNRMGYlQ4hynfIdCLFlnHXj Z3B [id number]) dqbjrELfyPI8xAT6frYvswYGqlYNaGL8VHDYfAo ZwMPKczHPkojQnUkTsOGVxvZCnwLR9SEWmYP6ro ostPZddYUdwYXLisaL6LTYjvCRiW3ZnHABoIL2c myuwXMW5UOsfkR2evaHKQoixJn0ghBHwwNckIoJ qNvUgOLOpEJOpFNFkpPslFVObSAw9tL5IWmwhK7 6zg2U9Zel3VDPxTGGxO4NdHI8iLVNstTLcQ97ET nclXTA6UXEKClzsHKOhVJ0Gy6vsXPRawMApPKO6 EZcikTYiOIUiNRQhSJa4AQNdBVhwtJTiWA5ptGx oDdoiuAjtr3AfaSMxNHjsMAYyRAPvKKpaSOCpGW 5LJyNoYLKiTTS8UFlsUAs3YWt9YK5JOcSqNIAoG JO9LkU5ViWcEQq6MWixLX5FLAOqQSFpFBAaCHX5 ZIN8UUHnMFSvEgCuPPIpPHVtLGubZWoxlCOcZX7 ldHfmvSYdauETFlXMrV6po9tqDMdse8YreNGmLJ BhciANClxlcGljTmVzdERvYzEgDQpcbHRycGFyX GxpbjBccmluMCANClxsdHJjaFxjZjFcZnMyMCBS XRPpoQFuUBWugqGoz7WpKEwubzOoENAxoCJnXGj waRjbmGrsIJZliAytgcYeM9G0iiXwOT3vTUOhTD EoX1BjQHYiC93eTEBhyU4mCCKnCG0rFVr0YWFoF HMuNlxjG3NtiJVpHiYrEAZqPXYggWJwQYCxEzBw lMteo9BlTDBxIYbcWC60hnXfROEgpAEbjvlakLZ okY5oFE1yAJMyVMmcTAtnNNN6JHC5AXCxlMSmo5 spbynxu2urV8nzDWAqGKH6Fj9klFCoBSBoooP5h 5PqGSynEMMeWpqxZVIlOTyrwEOjGG3ACQKcTLpo buYvDBGxsONoGNKfC0BqsUjyswvvSGDiGMzIFEi YB5OHRC8ZDIWxUKtoHECmfGPDOTG4NN2mRNimdQ SdxyzcMNInY1FrU4RorsUquQLtGHMgudSop8heK RM8RIQnhFRtoTJeXnVzGeweWME0BHute6xeDGM5 GCVpxXWzdUBbMYgmTwOzYvgxGHPwE1PpW8QqugH 9DQp9 MICROSCOPIC DESCRIPTION (test code = [id number] [facility] [place] 3371) sPKkszLWtzxIhfk49eXE6kT55ZA9yWMJdPcE8FG MuwwO3Wmo1MGPvRPYuoQHpI949a5mtm3iqldAcz IY7oNjoXAZnqxfrBgS0NVkwBAVyteyuDVk3SQxz GLJhwBV4ZSNmkVNqI1PgCBBrSQ8uzel6QPG5KZv xQDAgItU0EIHerMTlXEYvtKfzZKbhf787DEM4Pn XkKVWqowHpgXtiuS6iHgFtIXUZglGeyTkabZDsD 0EyqIIortJoKZ9tROSue39zUBabhKVcuGifYIgw aPL5TZTtTMCfOZtfHHpiwNatb2yiXK2jQH3peCg douYxL5kiaKRoj5Vlnp3xLf3hEOOhrCGcGyIezD GyYI1qC7Prs6BcEG2ow62yJGZmWVXgEYPaPL9lV VAjmLOmbsAsr0TubG3gDiTpPAAdku8= Gross assessment was performed at (test [facility] enter, code = 2777) Department of Pathology, [address] [place] [address], [place] [address], Technical component was performed at [facility] er, (test code = 2778) Department of Pathology, [address] [place] [id number], Professional component was performed at [facility] enter, (test code = 2779) Department of Pathology, [address] [place] [id number], [facility] [id number] 13:47:51Surgical Pathology Report Case: [id number] Authorizing Provider: Lillian Noriega MD Collected: 04/03/2022 12:08 PM Ordering Location: [place] [address] ICU Received: 04/04/2022 08:46 AM Pathologist: Crystal Beckford MD Specimen: Biopsy, Gastric, rule out H Pylori STOMACH, SITE NOT SPECIFIED, BIOPSY: -ANTRAL AND OXYNTIC MUCOSA WITH NO PATHOLOGIC ALTERATION -NEGATIVE FOR HELICOBACTER MICROORGANISMS ON ROUTINE STAINS Signing Pathologist Direct Phone Line: [phone] signed by Crystal Beckford MD on 04/07/2022 at 1:47 [id number]. Biopsy, Gastric.Received in formalin labeled with the patient's name, medical record number and "gastric" are 2 cheng soft tissue fragments measuring up to 0.3 cm in greatest dimension, which are submitted in toto in A1.LONNIE Petit, HT (ASCP)No significant inflammation, intestinal metaplasia, dysplasia or malignancy is seen. No Helicobacter microorganisms are seen on routine stains. [facility], Department of Pathology, [address] [place] [address], [facility], [address] [place] [address], [facility], [address] [place] [address], LUZQ-CoV2/RT-PCR (Asymptomatic ONLY)2022-04-06 19:57:15 Test Item Value Reference Interpretation Comments Range SARS-COV2/RT-PCR Negative Negative The SARS-Co V-2 (test code = target nucleic 45926-3) acids are not detected in thi s [...] rapid, real-pili e RT-PCR test intended for e qualitative detection of nucleic acid fr [...] revoked sooner. Fact Sheet for Healthcare Providers: https://www.[employer]/Documents/Xp ert%20Xpress%20SAR S%20CoV-2/Fact%20S heets/302-3802%20S ARS-COV-2%20HEALTH CARE%20PROVIDERS%2 0FACT%20SHEET.pdf Fact Sheet for Healthcare Patients: https://www.[employer]/Documents/Xp ert%20Xpress%20SAR S%20CoV-2/Fact%20S heets/302-3801%20S ARS-COV-2%20PATIEN T%20FACT%20SHEET.p df Lab Interpretation Normal (test code = 55818-3) [facility])2022-04-06 19:57:15 Test Item Value Reference Range Interpretation Comments SARS-COV2/RT-PCR Negative Negative The SARS-Co V-2 target (test code = nucleic acids a re not 3015974) detected in thi s specimen. Negative result s do not preclude SARS-C oV-2 infection and s hould not be used as the calderon e basis for patient managem ent decisions. Nega tive results must be combine d with clinical observ ations, patient history , and epidemiological information. A false negativ e result may occur if a spec imen is improperly pedro ected, transported or handled. This SARS CoV-2 [...] revoked sooner. Fact Sheet for Healthcare Providers: https://www.[employer] m/Documents/Xpert%20Xpress%20SARS%20CoV-2/Fact%20Sheets/302-3802%30TQHS-TYI-4%20 HEALTHCARE%20PROVIDERS%20FACT%20SHEET.pdf Fact Sheet for Healthcare Patients: https://www.Sepior/Documents/Xpert%20Xp ress%20SARS%20CoV-2/Fact%20Sheets/302-3801%50QWPI-QTN-9%20PATIENT%20FACT%20SHEET .pdfPOC-Glucose [id number] 18:34:16 Test Item Value Reference Range Interpretation Comments POC-Glucose Meter (test 120 mg/dL 70-110 H : TE ALYSSA AT [facility] code = 1538) 6720 [facility], 770 30: Mop Handle Assembler/Techni vivek ID = [id number] for YARON DANIEL Lab Interpretation (test Abnormal code = 28613-0) [facility] [id number] 18:34:16 Test Item Value Reference Range Interpretation Comments POC-GLUCOSE METER 120 mg/dL 70-110 H : TESTED A T [facility] 6720 (BEAKER) (test code = [facility] [place], 1538) [address]: Mop Handle Assembler/Techni vivek ID = [id number] for DANIEL PEREZ POCT-GLUCOSE [id number] 11:43:36 Test Item Value Reference Range Interpretation Comments POC-GLUCOSE METER 123 mg/dL 70-110 H : TESTED A T [facility] 6720 (BEAKER) (test code = [facility] [place], 1538) [address]: Mop Handle Assembler/Techni vivek ID = [id number] for DANIEL PEREZ POCT-GLUCOSE [id number] 06:59:27 Test Item Value Reference Range Interpretation Comments POC-GLUCOSE METER 102 mg/dL 70-110 : TESTED A T [facility] 6720 (BEAKER) (test code = [facility] [place], 1538) [address]: Mop Handle Assembler/Techni vivek ID = [id number] for Samson Bruno BASIC METABOLIC [id number] 06:21:28 Test Item Value Reference Range Interpretation [...] (test code = 697) EGFR (BEAKER) 81 Interpretati on of eGFR (test code = mL/min/1.73 values [...] not appl icable for dialysis patien ts Mop Handle Assembler ID - KELSI [id number] 06:21:28 Test Item Value Reference Range Interpretation Comments MAGNESIUM (BEAKER) (test code = 1.7 mg/dL 1.6-2.6 627) Mop Handle Assembler ID - KELSI MCBC W/PLT COUNT & AUTO [id number] 05:23:22 Test Item Value Reference Range Interpretation [...] PERCENT (BEAKER) (test code = 2801) POCT-GLUCOSE [id number] 21:40:34 Test Item Value Reference Range Interpretation Comments POC-GLUCOSE METER 131 mg/dL 70-110 H : TESTED A T [facility] 6720 (BEAKER) (test code = [facility] [place], 153) [address]: Mop Handle Assembler/Techni vivek ID = [id number] for Samson Bruno POCT-GLUCOSE [id number] 18:58:44 Test Item Value Reference Range Interpretation Comments POC-GLUCOSE METER 135 mg/dL 70-110 H : [facility] (test code = [facility] [place], 153) [address]: Mop Handle Assembler/Techni vivek ID = [id number] for Sara Sinha POC-Glucose [id number] 12:55:05 Test Item Value Reference Range Interpretation Comments POC-Glucose Meter (test 108 mg/dL 70-110 : TE STED AT [facility] code = 1538) 6720 [facility], 770 30: Mop Handle Assembler/Techni vivek ID = [id number] for Carlo Zamora n Lab Interpretation (test Normal code = 01820-9) [facility] [id number] 12:55:05 Test Item Value Reference Range Interpretation Comments POC-GLUCOSE METER 108 mg/dL 70-110 : TESTED A T [facility] 6720 (BEAKER) (test code = [facility] [place], 153) 17806: Mop Handle Assembler/Techni vivek ID = [id number] for Kristofer Sinhalian POCT-GLUCOSE [id number] 06:51:57 Test Item Value Reference Range Interpretation Comments POC-GLUCOSE METER 90 mg/dL 70-110 : TESTED A T [facility] 6720 (BEAKER) (test code = [place], 1538) [address]: Mop Handle Assembler/Techni vivek ID = [id number] for Samson Vickers BASIC METABOLIC [id number] 06:43:54 Test Item Value Reference Range Interpretation [...] not appl icable for dialysis patien ts Mop Handle Assembler ID - MARCIA [id number] 06:41:21 Test Item Value Reference Range Interpretation Comments MAGNESIUM (BEAKER) (test code = 1.9 mg/dL 1.6-2.6 627) Mop Handle Assembler ID Fred KENNEDY LCBC W/PLT COUNT & AUTO [id number] 06:16:03 Test Item Value Reference Range Interpretation [...] PERCENT (BEAKER) (test code = 2801) POCT-GLUCOSE [id number] 21:45:02 Test Item Value Reference Range Interpretation Comments POC-GLUCOSE METER 111 mg/dL 70-110 H : TESTED A T [facility] 6720 (BEAKER) (test code = [facility] [place], [facility]) 97476: Mop Handle Assembler/Techni vivek ID = [id number] for Samson Bruno POCT-GLUCOSE [id number] 11:58:22 Test Item Value Reference Range Interpretation Comments POC-GLUCOSE METER 118 mg/dL 70-110 H : TESTED A T [facility] 6720 (BEAKER) (test code = [facility] [place], [facility]) [address]: Mop Handle Assembler/Techni vivek ID = [id number] for Vu yk, Karla POCT-GLUCOSE [id number] 08:14:23 Test Item Value Reference Range Interpretation Comments POC-GLUCOSE METER 103 mg/dL 70-110 : TESTED A T [facility] 6720 (BEAKER) (test code = [facility] [place], [facility]) [address]: Mop Handle Assembler/Techni vivek ID = [id number] for Vu yk, Karla POCT-GLUCOSE [id number] 07:00:10 Test Item Value Reference Range Interpretation Comments POC-GLUCOSE METER 79 mg/dL 70-110 : TESTED A T [facility] 6720 (BEAKER) (test code = [facility] [place], [facility]) [address]: Mop Handle Assembler/Techni vivek ID = [id number] for Bisi Weber BASIC METABOLIC [id number] 06:50:32 Test Item Value Reference Range Interpretation [...] not appl icable for dialysis patien ts Mop Handle Assembler ID - MARCIA [id number] 06:33:50 Test Item Value Reference Range Interpretation Comments MAGNESIUM (BEAKER) (test code = 1.6 mg/dL 1.6-2.6 627) Mop Handle Assembler ID Fred KENNEDY LCBC W/PLT COUNT & AUTO [id number] 04:53:57 Test Item Value Reference Range Interpretation [...] (BEAKER) (test code = 2801) Prepare Leuko-Red [id number] 23:54:00 Test Item Value Reference Range Interpretation Comments CROSSMATCH (test code = 2264) COMPATIBLE Unit ABO (test code = A Pos [id number]) UNIT NUMBER (test code = [id number] 934-0) Status (test code = 4366126) TX_TIMEINCHART Blood Bank Product (test code RED BLOOD CELLS = 2263) PRODUCT CODE (test code = [id number] 933-2) [facility] [id number] 23:54:00 Test Item Value Reference Range Interpretation Comments CROSSMATCH (test code = 2264) COMPATIBLE Unit ABO (test code = A Pos 4968473) UNIT NUMBER (test code = [id number] 934-0) Status (test code = 4310092) TX_TIMEINCHART Blood Bank Product (test code RED BLOOD CELLS = 2263) PRODUCT CODE (test code = A3211G41 933-2) [facility] [id number] 22:15:00 Test Item Value Reference Range Interpretation Comments POC-GLUCOSE METER 86 mg/dL 70-110 : TESTED A T [facility] 6720 (BEAKER) (test code = [facility] [place], 1538) [address]: Mop Handle Assembler/Techni vivek ID = [id number] for Bisi Weber POCT-GLUCOSE [id number] 18:42:25 Test Item Value Reference Range Interpretation Comments POC-GLUCOSE METER 119 mg/dL 70-110 H : TESTED A T [facility] 6720 (BEAKER) (test code = [facility] [place], 1538) [address]: Mop Handle Assembler/Techni vivek ID = [id number] for Lo pez, Luigi POCT-GLUCOSE [id number] 13:30:28 Test Item Value Reference Range Interpretation Comments POC-GLUCOSE METER 144 mg/dL 70-110 H : TESTED A T [facility] 6720 (BEAKER) (test code = [facility], 1538) 16[address]: Mop Handle Assembler/Techni vivek ID = [id number] for MILY PELAYO (V)ANITHA HEMOGLOBIN AND [id number] 13:29:31 Test Item Value Reference Range Interpretation Comments HEMOGLOBIN (BEAKER) (test code = 9.3 GM/DL 11.2-15.7 L 410) HEMATOCRIT (BEAKER) (test code = 27.6 % 34.1-44.9 L 411) Mop Handle Assembler ID - [id number] ID - [id number]-GLUCOSE [id number] 12:55:59 Test Item Value Reference Range Interpretation Comments POC-GLUCOSE METER 111 mg/dL 70-110 H : TESTED A T [facility] 6720 (BEAKER) (test code = [facility] [place], 1538) [address]: Mop Handle Assembler/Techni vivek ID = [id number] for Lo pez, Luigi BASIC METABOLIC [id number] 04:40:27 Test Item Value Reference Range Interpretation [...] not appl icable for dialysis patien ts Mop Handle Assembler ID - MARCIA LPOCT-GLUCOSE [id number] 04:31:09 Test Item Value Reference Range Interpretation Comments POC-GLUCOSE METER 128 mg/dL 70-110 H : TESTED A T [facility] 6720 (BEAKER) (test code = ALAN Dania [facility], 1538) [address]: Mop Handle Assembler/Techni vivek ID = [id number] for KASSIE VEGA [id number] 04:22:54 Test Item Value Reference Range Interpretation Comments MAGNESIUM (BEAKER) 2.5 mg/dL 1.6-2.6 Specimen slightly (test code = 627) hemolyzed Mop Handle Assembler ID - LEDYAYA LCBC W/PLT COUNT & AUTO [id number] 03:52:56 Test Item Value Reference Range Interpretation [...] (BEAKER) (test code = 2801) LACTIC ACID, [id number] 03:50:46 Test Item Value Reference Range Interpretation Comments LACTATE BLOOD VENOUS 0.92 mmol/L 0.50-2.20 Specime n slightly (2) (BEAKER) (test hemolyzed code = 1313) Mop Handle Assembler ID - MARCIA LHEMOGLOBIN AND [id number] 22:09:12 Test Item Value Reference Range Interpretation Comments HEMOGLOBIN (BEAKER) (test code = 7.0 GM/DL 11.2-15.7 L 410) HEMATOCRIT (BEAKER) (test code = 20.1 % 34.1-44.9 L 411) Mop Handle Assembler ID - [id number] ID - [id number]-GLUCOSE [id number] 17:54:00 Test Item Value Reference Range Interpretation Comments POC-GLUCOSE METER 206 mg/dL 70-110 H : TESTED A T [facility] 6720 (BEAKER) (test code = [facility] [place], 1538) 00486: Mop Handle Assembler/Techni vivek ID = [id number] for Toby ycaren, Karla LACTIC ACID, [id number] 16:43:01 Test Item Value Reference Range Interpretation Comments LACTATE BLOOD VENOUS 3.27 mmol/L 0.50-2.20 H Specime n slightly (2) (BEAKER) (test hemolyzed code = 2872) Mop Handle Assembler ID - KELSI MPOCT-GLUCOSE [id number] 15:05:39 Test Item Value Reference Range Interpretation Comments POC-GLUCOSE METER 188 mg/dL 70-110 H : TESTED A T [facility] 6720 (BEAKER) (test code = [facility] [place], 1538) 5[address]: Mop Handle Assembler/Techni vivek ID = [id number] for Vu ycaren, Karla Sodium, random [id number] 14:21:12 Test Item Value Reference Range Interpretation Comments Sodium Urine (test <20 meq/L code = 2955-3) KEVIN (test code = Reference Range: No KEVIN) NormalsOperator ID - KELSI MOperator ID - KELSI [facility], random [id number] 14:21:12 Test Item Value Reference Range Interpretation Comments Sodium Urine (test <20 meq/L code = 2955-3) KEVIN (test code = Reference Range: No KEVIN) NormalsOperator ID - KELSI MOperator ID - KELSI [facility] Diego[facility]IUM, RANDOM [id number] 14:21:12 Test Item Value Reference Range Interpretation Comments SODIUM URINE (BEAKER) (test code = < meq/L 243) Reference Range: No NormalsOperator ID - KELSI MOperator ID - KELSI MCreatinine, random [id number] 14:04:16 Test Item Value Reference Range Interpretation Comments Creatinine, Ur 53.4 mg/dL (test code = 2161-8) KEVIN (test code = Reference Range: No KEVIN) NormalsOperator ID - KELSI [facility] CampusCreatinine, random [id number] 14:04:16 Test Item Value Reference Range Interpretation Comments Creatinine, Ur 53.4 mg/dL (test code = 2161-8) KEVIN (test code = Reference Range: No KEVIN) NormalsOperator ID - KELSI [facility] CampusCREATININE, RANDOM [id number] 14:04:16 Test Item Value Reference Range Interpretation Comments CREATININE URINE (BEAKER) (test 53.4 mg/dL code = 375) Reference Range: No NormalsOperator ID - KELSI MVITAMIN [id number] 13:58:11 Test Item Value Reference Range Interpretation Comments VITAMIN B12 (BEAKER) (test code = 330 pg/mL 213-816 774) Mop Handle Assembler ID - KELSI [id number] 13:58:11 Test Item Value Reference Range Interpretation Comments FERRITIN (BEAKER) (test code = 53.34 ng/mL 5.00-275.00 361) Mop Handle Assembler ID - KELSI MCOMPREHENSIVE METABOLIC [id number] 13:45:19 Test Item Value Reference Range Interpretation [...] not appl icable for dialysis patien ts Mop Handle Assembler ID - KELSI [id number] 13:33:10 Test Item Value Reference Range Interpretation Comments MAGNESIUM (BEAKER) (test code = 1.1 mg/dL 1.6-2.6 L 627) Mop Handle Assembler ID - KELSI CATRACHITA, TIBC, % SAT. (WITHOUT FERRITIN)2022-04-02 13:31:27 Test Item Value Reference Range Interpretation Comments IRON (BEAKER) (test code = 547) 88.0 ug/dL 40.0-160.0 TOTAL IRON BINDING CAPACITY 274 ug/dL 250-450 (BEAKER) (test code = 769) IRON % SATURATION (2) (BEAKER) 32 % 20-55 (test code = 2590) Mop Handle Assembler ID Fred DOLAN MPROTHROMBIN TIME/[id number] 13:18:25 Test Item Value Reference Range Interpretation Comments PROTIME (BEAKER) 17.2 seconds 11.9-14.2 H (test code = 759) INR (BEAKER) (test 1.44 See_Comment [Automat ed message] code = 370) The system [employer] generated this result transmitted ref erence range: <=5.90. The reference range was not used to int erpret this result as normal/abnormal . RECOMMENDED COUMADIN/WARFARIN INR THERAPY RANGESSTANDARD DOSE: 2.0 - 3.0 Includes: PROPHYLAXIS for venous thrombosis, systemic embolization; TREATMENT for venous thrombosis and/or pulmonary embolus.HIGH RISK: Target INR is 2.5-3.5 for patients with mechanical heart valves.[id number] 13:18:25 Test Item Value Reference Range Interpretation Comments FIBRINOGEN LEVEL (BEAKER) (test 275 mg/dl 225-434 code = 658) LACTIC ACID, [id number] 13:18:04 Test Item Value Reference Range Interpretation Comments LACTATE BLOOD VENOUS (2) (BEAKER) 3.88 mmol/L 0.50-2.20 H (test code = 2872) Mop Handle Assembler ID - KELSI MUrinalysis w/Microscopic + Reflex to [id number] 13:14:07 Test Item Value Reference Range Interpretation Comments Color, UA (test code April = 5778-6) Clarity, UA (test Cloudy code = 5767-9) Specific [place], UA 1.022 1.001-1.035 (test code = 5811-5) pH, UA (test code = 5.5 5.0-8.0 5803-2) Protein, UA (test 50 mg/dL Negative A code = 90676-7) Glucose, UA (test Negative Negative code = 365) Ketones, UA (test Negative Negative code = 2514-8) Bilirubin, UA (test Negative Negative code = 44150-6) Blood, UA (test code Large Negative A = 63180-5) Nitrite, UA (test Negative Negative code = 5802-4) Leukocytes, UA (test Large Negative A code = 5799-2) Urobilinogen, UA 0.2 mg/dL 0.2-1.0 (test code = 15548-0) RBC, UA (test code = 369 See_Comment [Autom ated 19391-9) message] The system which generated this result [...] . Bacteria, UA (test Many code = 98914-9) Crystals, Urine (test None Seen code = 92393-8) Specimen Source (test code = 2795) KEVIN (test code = KEVIN) Mop Handle Assembler ID - [auto]Mop Handle Assembler ID - tech Lab Interpretation Abnormal (test code = 07552-3) [facility]inal[facility]/Microscopic + Reflex to Culture 2022-04-02 13:14:07 Test Item Value Reference Range Interpretation Comments Color, UA (test code April = 5778-6) Clarity, UA (test Cloudy code = 5767-9) Specific [place], UA 1.022 1.001-1.035 (test code = 5811-5) pH, UA (test code = 5.5 5.0-8.0 5803-2) Protein, UA (test 50 mg/dL Negative A code = 86423-0) Glucose, UA (test Negative Negative code = 365) Ketones, UA (test Negative Negative code = 2514-8) Bilirubin, UA (test Negative Negative code = 01194-2) Blood, UA (test code Large Negative A = 07673-0) Nitrite, UA (test Negative Negative code = 5802-4) Leukocytes, UA (test Large Negative A code = 5799-2) Urobilinogen, UA 0.2 mg/dL 0.2-1.0 (test code = 80310-8) RBC, UA (test code = 369 See_Comment [Autom ated 88623-8) message] The system which generated this result [...] . Bacteria, UA (test Many code = 84398-4) Crystals, Urine (test None Seen code = 09336-6) Specimen Source (test code = 2795) KEVIN (test code = KEVIN) Mop Handle Assembler ID - [auto]Mop Handle Assembler ID - tech Lab Interpretation Abnormal (test code = 84984-1) [facility]/ REFLEX URINE [id number] 13:14:07 Test Item Value Reference Range Interpretation [...] = 1521) SOURCE(BEAKER) (test code = 2795) Mop Handle Assembler ID - [auto]Mop Handle Assembler ID - techCBC W/PLT COUNT & AUTO [...] (BEAKER) (test code = 2801) HEMOGLOBIN AND [id number] 13:10:04 Test Item Value Reference Range Interpretation Comments HEMOGLOBIN (BEAKER) (test code = 9.3 GM/DL 11.2-15.7 L 410) HEMATOCRIT (BEAKER) (test code = 28.6 % 34.1-44.9 L 411) BLOOD GAS, [id number] 12:59:17 Test Item Value Reference Range Interpretation [...]
[2023-01-24] MEDS ORDERED: TETANUS & DIPHTHERIA TOX,ADULT 0.5 ML VIAL ONE (04:01)
[2023-01-24] MEDS ORDERED: WATER FOR INJ,STERILE 10 ML ONE (06:02)
[2023-01-24] MEDS ORDERED: ZIPRASIDONE MESYLA 20 MG/VIAL IM ONE (06:02)
--- NOTE | 2023-01-24 07:02 | EDPHYS ---
Physician Documentation [facility] Name: Deepika Mobley Age: 77 yrs Sex: Female : 1945 Arrival Date: 01/24/2023 Time: 03:33 Bed 6 Private MD: ED Physician Oz Smith HPI: 01/24 03:46 This 77 yrs old Female presents to ER via Unassigned with complaints of fall sp4 at [facility]dc. 03:46 77-year-old female with moderate to severe dementia, nonverbal, presents with EMS after sp4 fall at the fdc.. Patient apparently fell and sustained skin abrasions to right elbow and the right hand. . 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 Medications include Depakote, multivitamins, lactobacillus, Remeron, alendronate, melatonin, hydralazine, metformin, Namenda, rivastigmine, pravastatin, levothyroxine, Myrbetriq. . Patient's fall mechanism is unclear but it appears that patient has fallen onto the right arm. Patient is a resident of a [facility]. Historical: - Allergies: 03:35 No Known Allergies; jj7 - PMHx: 03:35 CVA; Dementia; Diabetes - IDDM; Hypothyroidism; Hypertension; jj7 - Immunization history:: Adult Immunizations up to date. - Social history:: Smoking status: Patient denies any tobacco usage or history of. Patient uses Patient/guardian denies using alcohol, street drugs. - Family history:: not pertinent. ROS: 06:45 Constitutional: Negative for fever, chills, and weight loss. sp4 06:45 Unable to obtain ROS due to baseline dementia. Exam: 06:45 Constitutional: Frail elderly female, moderate to severe dementia, nonverbal on sp4 arrival, responds to painful noxious stimuli, later on exam patient developed mild agitation with persistent screaming. Patient was able to state her name sometime after arrival. Signs of severe diffuse muscular wasting and physical deconditioning, signs of prolonged immobility, lower extremity contractures bilaterally, skin thinning associated with skin senile skin change. Right hand moderate-sized skin tear with a flap, right elbow skin abrasion. Head/Face: Normocephalic, atraumatic. Eyes: Pupils equal round and reactive to light, Lids and lashes normal. Conjunctiva and sclera are not injected. Cornea within normal limits. Periorbital areas with no swelling, redness, or edema. ENT: Nares patent. No nasal discharge, no septal abnormalities noted. Tympanic membranes are normal and external auditory canals are clear. Oropharynx with no redness, swelling, or masses, exudates, or evidence of obstruction, uvula midline. Neck: Trachea midline, no thyromegaly or masses palpated, and no cervical lymphadenopathy. Cervical chronic contractures. Chest/axilla: Normal chest wall appearance and motion. Nontender with no deformity. No lesions are appreciated. Cardiovascular: Regular rate and rhythm with a normal S1 and S2. No gallops, murmurs, or rubs. Normal PMI, no JVD. No pulse deficits. Respiratory: Lungs have equal breath sounds bilaterally, clear to auscultation and percussion. No rales, rhonchi or wheezes noted. No increased work of breathing, no retractions or nasal flaring. Abdomen/GI: Soft, non-tender, with normal bowel sounds. No distension or tympany. No guarding or rebound. No evidence of tenderness throughout. Back: No spinal tenderness. No costovertebral tenderness. Female : Normal external genitalia. Patient is incontinent of urine and bowel. Skin: Warm, dry with poor skin turgor, senile skin changes, right hand moderate size skin tear with a flap, right elbow skin abrasion. MS/ Extremity: Pulses equal, no cyanosis. Intact peripheral pulses, bilateral lower extremity contractures from prolonged immobility, upper extremity muscle wasting. Neuro: Awake and alert, initially nonverbal on arrival became mildly agitated later on exam. Exam is limited secondary to severe dementia. Vital Signs: 03:35 BP 144 / 93; Pulse 93; Resp 17; Temp 98.5; Pulse Ox 100% ; Weight 53.98 kg; Height 5 jj7 ft. 0 in. ; 04:25 BP 131 / 94; Pulse 81; Resp 17; Pulse Ox 100% ; jj7 05:30 BP 167 / 73; Pulse 77; Resp 17; Pulse Ox 98% ; jj7 06:30 BP 121 / 59; Pulse 77; Resp 16; Pulse Ox 97% ; jj7 03:35 Body Mass Index 22.76 (53.98 kg, 154 cm) j7 [place] Coma Score: 04:30 Eye Response: spontaneous(4). Motor Response: obeys commands(6). Verbal Response: rv confused(4). Total: 14. MDM: 06:45 ED course: IMPRESSION: No evidence of acute osseous injury involving the pelvis. There sp4 are degenerative changes of the lower lumbar spine and pelvis, particularly involving the right hip. . ED course: IMPRESSION: No evidence of acute osseous injury involving the right elbow. Please note, a true lateral view was not obtained. . ED course: Chest x-ray revealed no evidence of Acute intrathoracic disease. CT head revealed no evidence of acute intracranial pathology, moderate cerebral atrophy with findings comparable with chronic micro angiopathy. CT cervical spine has revealed no evidence of acute cervical spine injury, multilevel degenerative disc and degenerative joint disease as described above. Vascular calcifications. . ED course: This time patient stable for discharge Residential . ED course: Will advise wound care for right hand skin tear and right elbow abrasion.. 06:45 Differential Diagnosis altered mental status, Acute head injury, closed head injury, sp4 traumatic brain injury.. Data reviewed: vital signs, nurses notes, EMS record, fdc records, old medical records, radiologic studies, CT scan, plain films. ED course: No evidence of acute traumatic injury based on x-rays today, wound care provided for skin tear on the right hand, patient is stable for discharge back to the fdc. Advised wound care daily to the right hand skin tear.. 07:00 Patient medically screened. sp4 01/24 03:47 Order name: CT Head C Spine sp4 01/24 03:47 Order name: Hand Right 3 View XRAY sp4 01/24 03:51 Order name: Chest Single View XRAY sp4 01/24 03:51 Order name: Elbow Right 2 View XRAY sp4 01/24 03:52 Order name: Pelvis XRAY sp4 01/24 03:51 Order name: Wound Care: cleansing and dressing; Complete Time: 03:52 sp4 Administered Medications: 04:03 Drug: Tetanus-Diphtheria Toxoid IM Adult 0.5 ml {[employer] Offbearer: [employer]. Exp: rv 01/29/2024. Lot #: [id number]. } Route: IM; Site: right deltoid; 06:25 Follow up: Response: No adverse reaction jj7 04:04 Drug: Esidhkvt-Uqhhdmvkqk-Ufzdykscd Topical Ointment 1 application Route: Topical; rv Site: right hand; 06:02 Drug: Geodon IM 10 mg Route: IM; Site: right deltoid; jj7 06:25 Follow up: Response: Marked relief of symptoms jj7 Disposition Summary: 01/24/23 07:01 Discharge Ordered Location: Home sp4 Problem: new sp4 Symptoms: have improved sp4 Condition: Stable sp4 Diagnosis - Acute fall in a fdc, agitation requiring sedation protocol, skin tear sp4 right hand, dementia with behavioral disturbances, right elbow skin abrasion. Followup: sp4 - With: Private Physician - When: 5 - 6 days - Reason: Recheck today's complaints Discharge Instructions: - Discharge Summary Sheet sp4 - Skin Tear, Fayi-dc-Kuwd sp4 Forms: - SBAR form hb Signatures: Dispatcher [employer] Antolin Vargas RN Jerry Goldstein RN RN as6 Amador Rjoas RN RN jj7 Oz Smith MD MD sp4
--- NOTE | 2023-01-24 07:02 | ER ---
Nurse's Notes [facility] Name: Deepika Mobley Age: 77 yrs Sex: Female : 1945 Arrival Date: 01/24/2023 Time: 03:33 Bed 6 Private MD: Diagnosis: Acute fall in a fdc, agitation requiring sedation protocol, skin tear right hand, dementia with behavioral disturbances, right elbow skin abrasion. Presentation: 01/24 03:35 Chief complaint: EMS states: PT ROLLED OUT OF BED. HAS SKIN TEAR TO RIGHT HAND AND jj7 ELBOW. Coronavirus screen: At this time, the client does not indicate any symptoms associated with coronavirus-19. Ebola Screen: No symptoms or risks identified at this time. Initial Sepsis Screen: Does the patient meet any 2 criteria? No. Patient's initial sepsis screen is negative. Does the patient have a suspected source of infection? No. Patient's initial sepsis screen is negative. Risk Assessment: Do you want to hurt yourself or someone else? Unable to obtain. Onset of symptoms was January 24, 2023. Care prior to arrival: Bleeding of injury controlled. IV initiated. 20 GA, in the left antecubital area. Mechanism of Injury: Fall out of bed. Transition of care: patient was received from another setting of care (long-term care facility), [facility]. 03:35 Method Of Arrival: EMS: [facility] jj7 03:35 Acuity: LEWIS 3 jj7 Triage Assessment: 03:35 General: Appears in no apparent distress. uncomfortable, Behavior is calm, cooperative, jj7 flat. Derm: Skin has skin tears on RIGHT HAND AND ELBOW. 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 Injury Description: LEFT SIDED PAIN. Historical: - Allergies: 03:35 No Known Allergies; jj7 - PMHx: 03:35 CVA; Dementia; Diabetes - IDDM; Hypothyroidism; Hypertension; jj7 - Immunization history:: Adult Immunizations up to date. - Social history:: Smoking status: Patient denies any tobacco usage or history of. Patient uses Patient/guardian denies using alcohol, street drugs. - Family history:: not pertinent. Screenin:21 [facility] ED Fall Risk Assessment (Adult) History of falling in the last 3 months, jj7 including since admission Yes- fall prone (multiple falls) (3 pts) Confusion or Disorientation Yes (5 pts) Intoxicated or Sedated No (0 pts) Impaired Gait Yes (1 pt) Mobility Assist Device Used No (0 pt) Altered Elimination Yes (1 pt) Score/Fall Risk Level 3 or more points = High Risk Maintained a safe environment, Hourly rounding (assess needs \T\ fall precautionary measures) done. Abuse screen: Denies threats or abuse. Nutritional screening: No deficits noted. Tuberculosis screening: No symptoms or risk factors identified. Assessment: 04:05 Reassessment: wound cleaning done. applied triple antibiotic on the affected areas. rv dressed with dry gauze. pt tolerated well. bleeding controlled. 07:09 Reassessment: report given to kelvin mark. jj7 07:15 Reassessment: Report called to April [place]aver[place]. 08:51 Reassessment: Patient appears in no apparent distress at this time. Patient and/or hb family updated on plan of care and expected duration. Pain level reassessed. Vital Signs: 03:35 BP 144 / 93; Pulse 93; Resp 17; Temp 98.5; Pulse Ox 100% ; Weight 53.98 kg; Height 5 j7 ft. 0 in. ; 04:25 BP 131 / 94; Pulse 81; Resp 17; Pulse Ox 100% ; jj7 05:30 BP 167 / 73; Pulse 77; Resp 17; Pulse Ox 98% ; jj7 06:30 BP 121 / 59; Pulse 77; Resp 16; Pulse Ox 97% ; jj7 03:35 Body Mass Index 22.76 (53.98 kg, 154 cm) jj7 [place] Coma Score: 04:30 Eye Response: spontaneous(4). Motor Response: obeys commands(6). Verbal Response: rv confused(4). Total: 14. ED Course: 03:35 Arm band placed on right wrist. Patient placed in an exam room, on a stretcher. jj7 03:36 Patient arrived in ED. as6 03:46 Oz Smith MD is Attending Physician. sp4 03:51 Antolin Campos, JAS is Primary Nurse. rv 04:04 Hand Right 3 View XRAY In Process Unspecified. EDMS 04:04 Triage completed. jj7 04:21 Patient has correct armband on for positive identification. Placed in gown. Bed in low jj7 position. Call light in reach. Side rails up X2. Warm blanket given. 04:21 Maintain EMS IV. Dressing intact. Site clean \T\ dry. Gauge \T\ site: 20G LEFT AC. jj 7 04:22 CT Head C Spine In Process Unspecified. EDMS 04:33 Chest Single View XRAY In Process Unspecified. EDMS 04:33 Elbow Right 2 View XRAY In Process Unspecified. EDMS 04:33 Pelvis XRAY In Process Unspecified. EDMS 07:04 No provider procedures requiring assistance completed. jj7 08:51 IV discontinued, intact, bleeding controlled, No redness/swelling at site. hb Administered Medications: 04:03 Drug: Tetanus-Diphtheria Toxoid IM Adult 0.5 ml {Addresser: [employer]. Exp: rv 01/29/2024. Lot #: [id number]. } Route: IM; Site: right deltoid; 06:25 Follow up: Response: No adverse reaction jj7 04:04 Drug: Ijkbkwwc-Lmohezdfjm-Ngoiyhmbn Topical Ointment 1 application Route: Topical; rv Site: right hand; 06:02 Drug: Geodon IM 10 mg Route: IM; Site: right deltoid; jj7 06:25 Follow up: Response: Marked relief of symptoms jj7 Medication: 07:04 VIS not applicable for this client. jj7 Outcome: 07:01 Discharge ordered by . sp4 08:51 Discharged to fdc. Report called to April [facility] attendant form completed. 08:51 Condition: stable 08:51 Discharge instructions given to EMS, Instructed on discharge instructions, follow up and referral plans. Demonstrated understanding of instructions, follow-up care. 08:52 Patient left the ED. hb Signatures: Dispatcher [employer] EDIA Kelvin Sofia RN RN Maverick Abraham RN JAS jb4 Antolin Campos RN RN Jerry Hodge RN RN as6 Amador Rojas RN RN jj7 Oz Smith MD MD sp4 Corrections: (The following items were deleted from the chart) 07:17 07:15 Reassessment: Report called to April trevino
[2023-01-24 08:56] VITALS: TEMP 98.5
[2023-01-24 09:00] VITALS: BP 121/59; O2SAT 97
--- NOTE | 2023-01-24 11:00 | RAD REPORT ---
EXAM DESCRIPTION: RAD - Pelvis - 01/24/2023 4:31 am CLINICAL HISTORY: 77 years Female fall residential TECHNIQUE: One x-ray view of the pelvis was performed on 01/24/2023 at 4:24 AM. COMPARISON: None FINDINGS: There is no evidence of acute fracture or dislocation. There is narrowing of the hip joint s worse on the right consistent with osteoarthritis. There is mild scoliosis of the lumbar spine. The re are degenerative changes of the visualized lumbar spine and pelvis. No pathologic lytic or sclerot ic bone lesions are identified. Bone mineralization is normal. No acute soft tissue abnormalities are identified. Occasional arterial vascular calcifications are no arash. IMPRESSION: No evidence of acute osseous injury involving the pelvis. There are degenerative changes of the lower lumbar spine and pelvis, particularly involving the right hip. Electronically signed by: Aura Bell DO 01/24/2023 6:23 AM CDT Due to temporary technical issues with the PACS/Fluency reporting system, reports are being signed by the in house radiologists without review as a courtesy to insure prompt reporting. The interpreting radiologist is fully responsible for the content of the report.
--- NOTE | 2023-01-24 15:20 | RAD REPORT ---
EXAM DESCRIPTION: RAD - Chest Single View - 01/24/2023 4:31 am CLINICAL HISTORY: 77 years Female, fall at retirement COMPARISON: Chest x-ray report from 04/02/2022. The image was unavailable for review. TECHNIQUE: Single portable x-ray view of the chest performed on 01/24/2023 at 4:19 AM FINDINGS: The lungs are well expanded and are clear. There is no evidence of a pneumothorax. The cardiac silhouette is normal in size and configuration. The mediastinal contours are normal. No acute osseous abnormality is identified. No acute soft tissue abnormalities are seen. Lines and tubes: None. Free air: None IMPRESSION: No evidence of acute intrathoracic disease. Electronically signed by: Aura Bell DO 01/24/2023 6:19 AM CDT Due to temporary technical issues with the PACS/Fluency reporting system, reports are being signed by the in house radiologists without review as a courtesy to insure prompt reporting. The interpreting radiologist is fully responsible for the content of the report.
--- NOTE | 2023-01-24 15:22 | RAD REPORT ---
EXAM DESCRIPTION: RAD - Hand Right 3 View - 01/24/2023 4:02 am CLINICAL HISTORY: 77 years Female acute injury TECHNIQUE: Three x-ray views of the right hand were performed on 01/24/2023 at 3:55 AM. COMPARISON: None FINDINGS: There is no evidence of acute fracture. There is slight widening of the distance between t he scaphoid and lunate which could indicate underlying ligamentous injury in this location. There are minimal degenerative changes of the right hand. No pathologic lytic or sclerotic bone lesions are se en. Bone mineralization is normal. No acute soft tissue abnormalities are identified. IMPRESSION: 1. No evidence of acute osseous injury. There is slight widening of the distance between the scaphoid and lunate which could indicate underlying ligamentous injury in this location. 2. Minimal degenerative changes of the right hand. Electronically signed by: Aura Bell DO 01/24/2023 6:18 AM CDT Due to temporary technical issues with the PACS/Fluency reporting system, reports are being signed by the in house radiologists without review as a courtesy to insure prompt reporting. The interpreting radiologist is fully responsible for the content of the report.
--- NOTE | 2023-01-24 15:26 | RAD REPORT ---
EXAM DESCRIPTION: RAD - Elbow Right 2 View - 01/24/2023 4:31 am CLINICAL HISTORY: 77 years Female fall fdc Elbow Right 2 View TECHNIQUE: 2 x-ray views of the right elbow were performed on 01/24/2023 at 4:21 AM. COMPARISON None FINDINGS: There is no evidence of fracture or dislocation. There is no significant arthritis or dege nerative change. No focal lytic or sclerotic bone lesions are seen. Please note, a true lateral vie w was not obtained. Bone mineralization is normal. No acute soft tissue abnormalities are identified. IMPRESSION: No evidence of acute osseous injury involving the right elbow. Please note, a true later al view was not obtained. Electronically signed by: Aura Bell DO 01/24/2023 6:21 AM CDT Due to temporary technical issues with the PACS/Fluency reporting system, reports are being signed by the in house radiologists without review as a courtesy to insure prompt reporting. The interpreting radiologist is fully responsible for the content of the report.
--- NOTE | 2023-01-24 15:28 | RAD REPORT ---
EXAM DESCRIPTION: CT - Head C Spine Mpr Wo Con - 01/24/2023 6:46 am CLINICAL HISTORY: 77 years Female DECLINING STATE, status post fall at custodial TECHNIQUE: Multiple axial CT images of the brain and cervical spine were performed followed by sagit kasandra and coronal reconstructed images. The CT study is performed according to ALARA (as low as reasona ann achievable) or ALARA/IMAGE GENTLY, with automatic adjustment of mA and/or kV according to patient size. Performed on: 01/24/2023 at 4:13 AM COMPARISON: 05/21/2022. FINDINGS: CT HEAD: There is no evidence of mass, acute mass effect or midline shift. There are no acute extra-axial flui d collections. There is no evidence of acute intracranial hemorrhage. The cerebral sulci and ventricles are prominent consistent with moderate cerebral volume loss. There are scattered areas of decreased attenuation within the subcortical and periventricular white m atter most likely due to mild chronic microangiopathy. There is ex vacuo dilatation of the occipital horn of the right lateral ventricle. There is mild mucosal thickening of the posterior left ethmoid sinus and left sphenoid sinus. The mastoid air cells are clear. The orbital contents are grossly unremarkable. No acute osseous abnormalities are identified. No focal soft tissue abnormalities are identified. CT CERVICAL SPINE: The cervical vertebrae are normal in height. There is normal alignment of the vertebrae. There is mul tilevel disc space narrowing throughout the cervical spine most pronounced from C5-C6 through C7-T1 a nd to a lesser degree C3-C4. There is degenerative spurring along the vertebral endplates throughout the cervical spine most pronounced at these levels. Bone mineralization is normal. The atlanto-axi al articulation is preserved and the odontoid process is intact. There is normal alignment of the facet joints on the parasagittal images. There are mild degenerative changes of the facet joints. There is no evidence of acute fracture or subluxation. There is mild C6-C7 and C5-C6 canal stenosis s econdary to disc osteophyte complexes. There is multilevel neural foraminal stenosis best appreciat ed on the left at C3-C4, bilaterally at C5-C6 and on the left at C6-C7 secondary to uncovertebral moreno nt and facet joint hypertrophy. The prevertebral and paraspinal soft tissues are unremarkable. The lung apices are clear. Vascular ca lcifications are noted along the carotid arteries. There is very mild mucosal thickening of the visua lized paranasal sinuses. IMPRESSION: CT HEAD: 1. No evidence of acute intracranial pathology. 2. Moderate cerebral atrophy with findings compatible with chronic microangiopathy. CT CERVICAL SPINE: 1. No evidence of acute cervical spine injury. 2. Multilevel degenerative disc disease and degenerative joint disease as described above. 3. Vascular calcifications. Electronically signed by: Aura Bell DO 01/24/2023 6:38 AM CDT Due to temporary technical issues with the PACS/Fluency reporting system, reports are being signed by the in house radiologists without review as a courtesy to insure prompt reporting. The interpreting radiologist is fully responsible for the content of the report.
== END 2023-01-24 08:52 | disposition home or self-care (01) ==
LOC: ER 03:33
DX: S61.411A Laceration without foreign body of right hand, initial encounter (principal); S50.311A Abrasion of right elbow, initial encounter; R45.1 Restlessness and agitation; F03.918 Unspecified dementia, unspecified severity, with other behavioral disturbance; W19.XXXA Unspecified fall, initial encounter; Y92.129 Unspecified place in nursing home as the place of occurrence of the external cause; I10 Essential (primary) hypertension; E11.9 Type 2 diabetes mellitus without complications; Z86.73 Personal history of transient ischemic attack (TIA), and cerebral infarction without residual deficits; Z23 Encounter for immunization
CPT/HCPCS: 70450; 72125; 71045; 72170; 73130; 73070; 90471; 90714; 96372; 99284; J3486